=== PATIENT | female | born 1950 | race Caucasian/White ===

== ENCOUNTER 2016-02-28 01:14 | Emergency (ER) | payer MEDICARE ==
--- NOTE | 2016-02-28 01:18 | ED ---
General Adult HPI - General Stated complaint: chest pain Time Seen by Provider: 02/28/16 01:18 Source: RN notes reviewed, old records reviewed - History of Present Illness Initial comments: This is a 65-year-old female earlier for evaluation of cough and congestion and flulike symptoms upper respiratory symptoms. Patient also complaining of left leg jumping and tingling. Patient denies any significant chest pain or shortness of breath, no specific modifying factors for symptoms. No change in medications as of recent, no recent antibiotic use, no recent evaluation regarding chest pain shots of breath or abdominal pain. Patient has no recent hospitalizations. No significant fevers or travel history, no known sick contacts - Related Data Home Medications Medication Instructions Recorded Confirmed Sertraline [Zoloft] 50 mg PO HS 12/02/14 12/12/15 amLODIPine [Norvasc] 5 mg PO DAILY 09/22/15 12/12/15 Omeprazole [PriLOSEC] 20 mg PO AC-BID 11/19/15 12/12/15 Oxybutynin Chloride [Ditropan] 5 mg PO BID 11/19/15 12/12/15 Cyclobenzaprine [Flexeril] 5 mg PO BID 12/12/15 12/12/15 Furosemide [Lasix] 40 mg PO DAILY 12/12/15 12/12/15 QUEtiapine FUMARATE 25 mg PO TID 12/12/15 12/12/15 Spironolactone [Aldactone] 25 mg PO DAILY 12/12/15 12/12/15 traZODone HCL [Desyrel] 100 mg PO HS 12/12/15 12/12/15 Previous Rx's Medication Instructions Recorded Clopidogrel [Plavix] 75 mg PO DAILY #14 tab 12/02/14 Melatonin 10 mg PO HS tablet 11/22/15 hydrOXYzine HCL [Atarax] 25 mg PO TID PRN #20 tab 11/28/15 Ondansetron Odt [Zofran ODT] 4 mg PO Q8HR PRN #15 tab 12/12/15 Allergies Allergy/AdvReac Type Severity Reaction Status Date / Time erythromycin base Allergy Rash/Hives Verified 12/12/15 15:48 [Erythromycin Base] etodolac [From Lodine] Allergy Rash/Hives Verified 12/12/15 15:48 Penicillins Allergy Rash/Hives Verified 12/12/15 15:48 pentazocine lactate Allergy Rash/Hives Verified 12/12/15 15:48 [From Talwin] secobarbital sodium Allergy Rash/Hives Verified 12/12/15 15:48 [From Seconal] Sulfa (Sulfonamide Allergy Rash/Hives Verified 12/12/15 15:48 Antibiotics) delmain Allergy Rash/Hives Uncoded 12/12/15 15:08 oatmeal Allergy Rash/Hives Uncoded 12/12/15 15:08 Review of Systems ROS Statement: Those systems with pertinent positive or pertinent negative responses have been documented in the HPI. ROS Other: All systems not noted in ROS Statement are negative. Past Medical History Past Medical History: Coronary Artery Disease (CAD), Dementia, GERD/Reflux, Hypertension, Musculoskeletal Disorder Additional Past Medical History / Comment(s): Patient currently living at [facility] alone. Other HX: Darier Disease, MS, RLS, bilateral legs cramp when walking long distances, UTI, DJD lumbar spine, pt denies dementia-it is in old hx however. History of Any Multi-Drug Resistant Organisms: MRSA Date of last positivie culture/infection: 09/05/2012 MDRO Source:: Urine Past Surgical History: Cholecystectomy, Heart Catheterization With Stent, Hernia Repair, Hysterectomy, Orthopedic Surgery Additional Past Surgical History / Comment(s): surgeries on left leg due to accident; Four lipomas removed from lower back; bunionectomy on left foot in August 2013, states, bowel prolapsed and they put back in place, picc line for ABX tx for MRSA 2012-since removed. Past Anesthesia/Blood Transfusion Reactions: No Reported Reaction Additional Past Anesthesia/Blood Transfusion Reaction / Comment(s): . Date of Last Stent Placement:: 2011 Past Psychological History: Depression Additional Psychological History / Comment(s): She is independent. reports having a Legal Gaurdian. She uses no assistive device. She does not drive. patient denies depression but found in old history Smoking Status: Current every day smoker Past Alcohol Use History: None Reported Additional Past Alcohol Use History / Comment(s): . Past Drug Use History: None Reported - Past Family History Father Family Medical History: No Reported History Additional Family Medical History / Comment(s): father at age 92 yrs. Mother Family Medical History: COPD Additional Family Medical History / Comment(s): Mother at age 62yrs. General Exam General appearance: alert, in no apparent distress Head exam: Present: atraumatic, normocephalic, normal inspection Eye exam: Present: normal appearance, PERRL, EOMI. Absent: scleral icterus, conjunctival injection, periorbital swelling ENT exam: Present: normal exam, mucous membranes moist Neck exam: Present: normal inspection. Absent: tenderness, meningismus, lymphadenopathy Respiratory exam: Present: normal lung sounds bilaterally. Absent: respiratory distress, wheezes, rales, rhonchi, stridor Cardiovascular Exam: Present: regular rate, normal rhythm, normal heart sounds. Absent: systolic murmur, diastolic murmur, rubs, gallop, clicks GI/Abdominal exam: Present: soft, normal bowel sounds. Absent: distended, tenderness, guarding, rebound, rigid Extremities exam: Present: normal inspection, full ROM, normal capillary refill. Absent: tenderness, pedal edema, joint swelling, calf tenderness Back exam: Present: normal inspection Neurological exam: Present: alert, oriented X3, CN II-XII intact Psychiatric exam: Present: normal affect, normal mood Skin exam: Present: warm, dry, intact, normal color. Absent: rash Course Vital Signs 02/28/16 02/28/16 01:16 01:20 Pulse Rate 79 Respiratory 18 18 Rate Blood Pressure 141/69 O2 Sat by Pulse 99 Oximetry - Reevaluation(s) Reevaluation #1: 02/28/16 03:12 The patient feeling better with Benadryl, asking for IM Benadryl EKG Findings - EKG Comments: EKG Findings:: EKG shows normal sinus rhythm and 35, HI 142, QRS 80, QTC 422 Medical Decision Making - Medical Decision Making 65 female to ER for nonspecific of respiratory symptoms. Patient's symptoms are at this time improved. Patient can be discharged home - Radiology Data Radiology results: report reviewed (Chest x-ray two-view is negative for acute disease), image reviewed Disposition Clinical Impression: Upper respiratory infection Disposition: HOME SELF-CARE Condition: Good Instructions: Upper Respiratory Infection (ED) Referrals: Micky Nunn MD [Primary Care Provider] - 1-2 days
[2016-02-28 01:20] VITALS: RESP 18
[2016-02-28] MEDS ORDERED: DIAZEPAM 5 MG TAB PO STA (02:04)
[2016-02-28] MEDS ORDERED: diphenhydrAMINE 50 MG/ML 1 ML VIAL IM STA (02:34)
[2016-02-28 03:25] VITALS: PULSE 80
[2016-02-28 03:26] VITALS: BP 137/82; TEMP 97.1
--- NOTE | 2016-02-28 03:55 | XR ---
EXAMINATION TYPE: XR chest 2V DATE OF EXAM: 02/28/2016 2:25 AM COMPARISON: 12/12/2015 HISTORY: Chest pain TECHNIQUE: Frontal and lateral views of the chest are obtained. FINDINGS: Mild chronic interstitial lung changes are suggested bilaterally. Atherosclerotic calcification is no alfa in the aortic arch. There is no focal air space opacity, pleural effusion, or pneumothorax seen. The cardiac silhouette size is within normal limits. The osseous structures are intact. IMPRESSION: No acute cardiopulmonary process. No significant interval change.
== END 2016-02-28 03:26 | disposition home or self-care (01) ==
LOC: EC 01:14
DX: J06.9 Acute upper respiratory infection, unspecified (principal); Z88.0 Allergy status to penicillin; Z88.2 Allergy status to sulfonamides; Z88.1 Allergy status to other antibiotic agents; Z88.5 Allergy status to narcotic agent; Z88.8 Allergy status to other drugs, medicaments and biological substances; Z91.018 Allergy to other foods; Z79.899 Other long term (current) drug therapy; Z79.02 Long term (current) use of antithrombotics/antiplatelets; K21.9 Gastro-esophageal reflux disease without esophagitis; I10 Essential (primary) hypertension; I25.10 Atherosclerotic heart disease of native coronary artery without angina pectoris; G35 Multiple sclerosis; G25.81 Restless legs syndrome; F32.9 Major depressive disorder, single episode, unspecified; Z95.5 Presence of coronary angioplasty implant and graft; F17.200 Nicotine dependence, unspecified, uncomplicated
CPT/HCPCS: 96372; 99285; 93005; 71020; J1200

== ENCOUNTER 2016-03-11 18:35 | Emergency (ER) | payer MEDICARE ==
[2016-03-11 18:43] VITALS: BP 125/76; PULSE 83; RESP 18; TEMP 97.7
--- NOTE | 2016-03-11 19:15 | ED ---
Skin/Abscess/FB HPI - General Chief complaint: Skin/Abscess/Foreign Body Stated complaint: BLOODCLOT LEFT BREAST Time Seen by Provider: 03/11/16 19:10 Source: patient, RN notes reviewed Mode of arrival: ambulatory Limitations: no limitations - History of Present Illness Initial comments: 58-year-old female presents emergency Department chief complaint redness to her left breast. Patient states it started this morning. Patient is mild swelling. Patient states she has a history of breast abscess. Patient states that she's had a mammogram in the past. Patient states that she had the abscess approximately 10 years ago [surgeon. Patient denies fever, chills, chest pain or shortness of breath. Patient states that she has ALLERGIES to penicillin and Bactrim. Patient states that she has constant rash on her body secondary to derrire's disease - Related Data Home Medications Medication Instructions Recorded Confirmed Sertraline [Zoloft] 50 mg PO HS 12/02/14 12/12/15 amLODIPine [Norvasc] 5 mg PO DAILY 09/22/15 12/12/15 Omeprazole [PriLOSEC] 20 mg PO AC-BID 11/19/15 12/12/15 Oxybutynin Chloride [Ditropan] 5 mg PO BID 11/19/15 12/12/15 Cyclobenzaprine [Flexeril] 5 mg PO BID 12/12/15 12/12/15 Furosemide [Lasix] 40 mg PO DAILY 12/12/15 12/12/15 QUEtiapine FUMARATE 25 mg PO TID 12/12/15 12/12/15 Spironolactone [Aldactone] 25 mg PO DAILY 12/12/15 12/12/15 traZODone HCL [Desyrel] 100 mg PO HS 12/12/15 12/12/15 Previous Rx's Medication Instructions Recorded Clopidogrel [Plavix] 75 mg PO DAILY #14 tab 12/02/14 Melatonin 10 mg PO HS tablet 11/22/15 hydrOXYzine HCL [Atarax] 25 mg PO TID PRN #20 tab 11/28/15 Ondansetron Odt [Zofran ODT] 4 mg PO Q8HR PRN #15 tab 12/12/15 Cephalexin [Keflex] 500 mg PO Q6HR #40 cap 03/11/16 Allergies Allergy/AdvReac Type Severity Reaction Status Date / Time erythromycin base Allergy Rash/Hives Verified 03/11/16 18:43 [Erythromycin Base] etodolac [From Lodine] Allergy Rash/Hives Verified 03/11/16 18:43 flurazepam [From Dalmane] Allergy Rash/Hives Verified 03/11/16 19:13 Penicillins Allergy Rash/Hives Verified 03/11/16 18:43 pentazocine lactate Allergy Rash/Hives Verified 03/11/16 18:43 [From Talwin] secobarbital sodium Allergy Rash/Hives Verified 03/11/16 18:43 [From Seconal] Sulfa (Sulfonamide Allergy Rash/Hives Verified 03/11/16 18:43 Antibiotics) oatmeal Allergy Rash/Hives Uncoded 03/11/16 18:43 Review of Systems ROS Statement: Those systems with pertinent positive or pertinent negative responses have been documented in the HPI. ROS Other: All systems not noted in ROS Statement are negative. Past Medical History Past Medical History: Coronary Artery Disease (CAD), Dementia, GERD/Reflux, Hypertension, Musculoskeletal Disorder Additional Past Medical History / Comment(s): Darier Disease, MS, RLS, bilateral legs cramp when walking long distances, UTI, DJD lumbar spine, pt denies dementia-it is in old hx however. History of Any Multi-Drug Resistant Organisms: MRSA Date of last positivie culture/infection: 09/05/2012 MDRO Source:: Urine Past Surgical History: Cholecystectomy, Heart Catheterization With Stent, Hernia Repair, Hysterectomy, Orthopedic Surgery Additional Past Surgical History / Comment(s): surgeries on left leg due to accident; Four lipomas removed from lower back; bunionectomy on left foot in August 2013, states, bowel prolapsed and they put back in place, picc line for ABX tx for MRSA 2012-since removed. Past Anesthesia/Blood Transfusion Reactions: No Reported Reaction Additional Past Anesthesia/Blood Transfusion Reaction / Comment(s): . Date of Last Stent Placement:: 2011 Past Psychological History: Depression Additional Psychological History / Comment(s): She is independent. reports having a Legal Gaurdian. She uses no assistive device. She does not drive. patient denies depression but found in old history Smoking Status: Current every day smoker Past Alcohol Use History: None Reported Additional Past Alcohol Use History / Comment(s): . Past Drug Use History: None Reported - Past Family History Father Family Medical History: No Reported History Additional Family Medical History / Comment(s): father at age 92 yrs. Mother Family Medical History: COPD Additional Family Medical History / Comment(s): Mother at age 62yrs. General Exam Limitations: no limitations General appearance: alert, in no apparent distress Head exam: Present: atraumatic, normocephalic, normal inspection Respiratory exam: Present: normal lung sounds bilaterally. Absent: respiratory distress, wheezes, rales, rhonchi, stridor Cardiovascular Exam: Present: regular rate, normal rhythm, normal heart sounds. Absent: systolic murmur, diastolic murmur, rubs, gallop, clicks Skin exam: Present: warm, dry, intact, normal color, other (Left breast there is a 1 cm area of erythema and half centimeter of nonfluctuant firm abscess). Absent: rash Course Vital Signs 03/11/16 18:40 Temperature 97.7 F Pulse Rate 83 Respiratory 18 Rate Blood Pressure 125/76 O2 Sat by Pulse 97 Oximetry Medical Decision Making - Medical Decision Making 65-year-old female presented emergency department for left breast abscess. Patient symptoms started today. There is nothing to open at this time. Patient referred to Dr. Jensen Hunter surgeon for further evaluation she was started on Keflex that she has an ALLERGY to Bactrim. Return parameters were discussed. Disposition Clinical Impression: Abscess of left breast Disposition: HOME SELF-CARE Condition: Stable Instructions: Abscess (ED) Additional Instructions: Please return to the Emergency Department if symptoms worsen or any other concerns. Please follow-up with the surgeon tomorrow. Prescriptions: Cephalexin [Keflex] 500 mg PO Q6HR #40 cap Referrals: Micky Nunn MD [Primary Care Provider] - 1-2 days Kathy Ruth MD [STAFF PHYSICIAN] - 1-2 days Time of Disposition: 19:15
== END 2016-03-11 19:36 | disposition home or self-care (01) ==
LOC: EC 18:35
DX: N61.1 Abscess of the breast and nipple (principal); I25.10 Atherosclerotic heart disease of native coronary artery without angina pectoris; I10 Essential (primary) hypertension; K21.9 Gastro-esophageal reflux disease without esophagitis; Z88.0 Allergy status to penicillin; Z88.2 Allergy status to sulfonamides; Z91.018 Allergy to other foods; Z88.8 Allergy status to other drugs, medicaments and biological substances; Z79.899 Other long term (current) drug therapy; Z79.02 Long term (current) use of antithrombotics/antiplatelets; Z95.5 Presence of coronary angioplasty implant and graft
CPT/HCPCS: 99282

== ENCOUNTER 2016-03-19 19:01 | Emergency (ER) | payer MEDICARE ==
[2016-03-19 19:05] VITALS: RESP 16; TEMP 98
[2016-03-19] MEDS ORDERED: SODIUM CHLORIDE 0.9% 1,000 ML IV STA (19:23)
[2016-03-19] MEDS ORDERED: SODIUM CHLORIDE 0.9% 500 ML IV STA (19:23)
[2016-03-19 19:47] LABS: Basophils # (A) 0.1 k/uL (0-0.2); Basophils % (A) 1 %; CH 31.4; CHCM 32.6; Eosinophils # (A) 0.2 k/uL (0-0.7); Eosinophils % (A) 2 %; HCT 42.6 % (34.0-46.0); HDW 2.29; HGB 13.7 gm/dL (11.4-16.0); Luc # (Auto) 0.13; Luc % (Auto) 1; Lymphocytes # (A) 1.6 k/uL (1.0-4.8); Lymphocytes % (A) 17 %; MCH 31.1 pg (25.0-35.0); MCHC 32.2 g/dL (31.0-37.0); MCV 96.6 fL (80.0-100.0); Mean Platelet Volume 6.4; Monocytes # (A) 0.6 k/uL (0-1.0); Monocytes % (A) 6 %; Neutrophils # (A) 6.8 k/uL (1.3-7.7); Neutrophils % (A) 73 %; RBC 4.41 m/uL (3.80-5.40); RDW 13.2 % (11.5-15.5); WBC 9.3 k/uL (3.8-10.6); WBC (Perox) 9.14
[2016-03-19 19:57] LABS: Potassium 4.2 mmol/L (3.5-5.1); Total Bilirubin 0.4 mg/dL (0.2-1.3)
[2016-03-19 20:00] LABS: INR 1.1 (<1.1); Partial Thromboplastin Time 23.6 sec (22.0-30.0); Prothrombin Time 10.7 sec (9.0-12.0)
[2016-03-19 20:02] LABS: Creatine Kinase 275 U/L (30-135)
--- NOTE | 2016-03-19 20:05 | CT ---
EXAMINATION TYPE: CT brain wo con DATE OF EXAM: 03/19/2016 7:59 PM COMPARISON: NONE HISTORY: syncopal episode today with injury CT DLP: 1017.9 mGycm Automated exposure control for dose reduction was used. FINDINGS: Multiple axial sections were obtained of the brain with no contrast. Ventricles have normal size. There is no mass effect nor midline shift. There is no sign of intracran ial hemorrhage. The calvarium is intact. There is a 2 cm area of subtle hypodensity in the espinosa-white matter junction of the left posterior frontal lobe. IMPRESSION: There is evidence of some white matter ischemia in the left posterior frontal lobe. No mass effect. M ild cerebral atrophy. No hemorrhage.
--- NOTE | 2016-03-19 20:08 | XR ---
EXAMINATION TYPE: XR chest 2V DATE OF EXAM: 03/19/2016 8:03 PM COMPARISON: 02/28/2016 HISTORY: Syncope TECHNIQUE: Frontal and lateral views of the chest are obtained. FINDINGS: Heart is normal. Lungs are clear. Costophrenic angles are clear. The thoracic aorta is ath eromatous. There are no hilar masses. Bony thorax is intact. There are chest leads. IMPRESSION: No active cardiopulmonary disease. No change.
[2016-03-19 20:16] LABS: Troponin I <0.012 ng/mL (0.000-0.034)
[2016-03-19 20:22] LABS: Creatine Kinase MB 2.7 ng/mL (0.0-2.4)
[2016-03-19 20:41] VITALS: BP 131/84; PULSE 65
[2016-03-19] MEDS ORDERED: ACETAMINOPHEN TAB 500 MG TAB PO STA (20:42)
--- NOTE | 2016-03-19 21:13 | ED ---
Syncope HPI - General Chief Complaint: Syncope Stated Complaint: fall Time Seen by Provider: 03/19/16 19:03 Source: patient, EMS Mode of arrival: EMS Limitations: no limitations - History of Present Illness Initial Comments: This 65-year-old white female presents after having a syncopal episode. She apparently was walking across [facility]. when she passed out in the middle of the street. She states that she fell and hit her left frontal head region. She apparently was found by a bystander. They brought her in to [facility] and called an ambulance and they brought her here. She states that she was somewhat dizzy prior to the incident. She feels much improved now. She denies any headaches. She does complain of some chronic shortness of breath and some chronic low back pain. She denies any leg pain or swelling or history of DVT or PE. She does relate that she has a history of cardiac disease with previous cardiac stenting as well. She also relates that she's had an approximately 38 pound weight loss in the last 1-1/2 months and this is not intentional. No other complaints or modifying factors. - Related Data Home Medications Medication Instructions Recorded Confirmed Sertraline [Zoloft] 50 mg PO HS 12/02/14 03/19/16 amLODIPine [Norvasc] 5 mg PO DAILY 09/22/15 03/19/16 Omeprazole [PriLOSEC] 20 mg PO AC-BID 11/19/15 03/19/16 Oxybutynin Chloride [Ditropan] 5 mg PO BID 11/19/15 03/19/16 Cyclobenzaprine [Flexeril] 5 mg PO BID 12/12/15 03/19/16 Furosemide [Lasix] 40 mg PO DAILY 12/12/15 03/19/16 QUEtiapine FUMARATE 25 mg PO TID 12/12/15 03/19/16 Spironolactone [Aldactone] 25 mg PO DAILY 12/12/15 03/19/16 traZODone HCL [Desyrel] 100 mg PO HS 12/12/15 03/19/16 Previous Rx's Medication Instructions Recorded Clopidogrel [Plavix] 75 mg PO DAILY #14 tab 12/02/14 Melatonin 10 mg PO HS tablet 11/22/15 hydrOXYzine HCL [Atarax] 25 mg PO TID PRN #20 tab 11/28/15 Ondansetron Odt [Zofran ODT] 4 mg PO Q8HR PRN #15 tab 12/12/15 Allergies Allergy/AdvReac Type Severity Reaction Status Date / Time erythromycin base Allergy Rash/Hives Verified 03/19/16 19:30 [Erythromycin Base] etodolac [From Lodine] Allergy Rash/Hives Verified 03/19/16 19:30 flurazepam [From Dalmane] Allergy Rash/Hives Verified 03/19/16 19:30 Penicillins Allergy Rash/Hives Verified 03/19/16 19:30 pentazocine lactate Allergy Rash/Hives Verified 03/19/16 19:30 [From Talwin] secobarbital sodium Allergy Rash/Hives Verified 03/19/16 19:30 [From Seconal] Sulfa (Sulfonamide Allergy Rash/Hives Verified 03/19/16 19:30 Antibiotics) oatmeal Allergy Rash/Hives Uncoded 03/19/16 19:05 Review of Systems ROS Statement: Those systems with pertinent positive or pertinent negative responses have been documented in the HPI. ROS Other: All systems not noted in ROS Statement are negative. Past Medical History Past Medical History: Coronary Artery Disease (CAD), Dementia, GERD/Reflux, Hypertension, Musculoskeletal Disorder Additional Past Medical History / Comment(s): Darier Disease, MS, RLS, bilateral legs cramp when walking long distances, UTI, DJD lumbar spine, pt denies dementia-it is in old hx however. History of Any Multi-Drug Resistant Organisms: MRSA Date of last positivie culture/infection: 09/05/2012 MDRO Source:: Urine Past Surgical History: Cholecystectomy, Heart Catheterization With Stent, Hernia Repair, Hysterectomy, Orthopedic Surgery Additional Past Surgical History / Comment(s): surgeries on left leg due to accident; Four lipomas removed from lower back; bunionectomy on left foot in August 2013, states, bowel prolapsed and they put back in place, picc line for ABX tx for MRSA 2012-since removed. Past Anesthesia/Blood Transfusion Reactions: No Reported Reaction Additional Past Anesthesia/Blood Transfusion Reaction / Comment(s): . Date of Last Stent Placement:: 2011 Past Psychological History: Depression Additional Psychological History / Comment(s): She is independent. reports having a Legal Gaurdian. She uses no assistive device. She does not drive. patient denies depression but found in old history Smoking Status: Current every day smoker Past Alcohol Use History: None Reported Additional Past Alcohol Use History / Comment(s): . Past Drug Use History: None Reported - Past Family History Father Family Medical History: No Reported History Additional Family Medical History / Comment(s): father at age 92 yrs. Mother Family Medical History: COPD Additional Family Medical History / Comment(s): Mother at age 62yrs. General Exam - General Exam Comments Initial Comments: GENERAL: The patient is well nourished and well hydrated. VITAL SIGNS: Heart rate, blood pressure, respiratory rate reviewed as recorded in nurse's notes. EYES: Pupils are round and reactive. Extraocular movements are intact. No conjunctival / lid redness or swelling. ENT: No external evidence of injury, swelling, or ecchymosis. Airway is patent. Throat is clear. NECK: Nontender. No swelling or evidence of injury. No subcutaneous emphysema. Trachea is midline. No thyroid mass. HEART: Regular rate and rhythm. Good peripheral pulses. LUNGS/CHEST: Breath sounds clear and equal bilaterally. No rales, rhonchi, or wheezes. No ecchymosis, subcutaneous emphysema, or tenderness. ABDOMEN: Abdomen soft without tenderness. No palpable masses or organomegaly. No peritoneal signs. No abdominal wall swelling or ecchymosis. EXTREMITIES: No extremity tenderness. Normal muscle tone and function. No thoracolumbar tenderness. NEUROLOGIC: Sensation is grossly intact. Cranial nerve exam reveals face is symmetrical, tongue is midline, speech is clear. SKIN: No abrasions or ecchymosis is noted. No induration or masses noted. PSYCHIATRIC: Alert and oriented. Appropriate behavior and judgment. Limitations: no limitations Course Vital Signs 03/19/16 03/19/16 03/19/16 19:02 19:25 20:34 Temperature 98.0 F Pulse Rate 75 68 65 Respiratory 16 16 Rate Blood Pressure 128/75 141/78 131/84 O2 Sat by Pulse 98 96 96 Oximetry Medical Decision Making - Medical Decision Making The patient was seen and examined. All diagnostics were reviewed. The patient had an EKG which shows a normal sinus rhythm. There is no acute ST-T wave changes identified. The MT interval is 116, QRS duration is 80, and the QTc interval is 470. The patient also had a laboratory analysis which shows slight elevation of the CK-MB and CPK. The creatinine is 1.14. The computed tomography scan of the brain shows some white matter ischemic changes in the left frontal lobe. The chest x-ray does not show any acute process. The exact cause of her syncopal episode is not definitively determined. It is felt as though she would benefit from further admission and workup in this regard. She is agreeable to this plan. Of note, her guardian called then and relates that they do not want her to receive any narcotics as she is on probation. She is repetitively requesting narcotics and states that she normally gets Demerol. She was given some Tylenol for her low back pain as well as some Toradol. Case is discussed with internal medicine and they are agreeable to admission. - Lab Data Result diagrams: 03/19/16 19:33 03/19/16 19:33 Lab Results 03/19/16 03/19/16 03/19/16 Range/Units 19:33 19:33 19:33 WBC 9.3 (3.8-10.6) k/uL RBC 4.41 (3.80-5.40) m/uL Hgb 13.7 (11.4-16.0) gm/dL Hct 42.6 (34.0-46.0) % MCV 96.6 (80.0-100.0) fL MCH 31.1 (25.0-35.0) pg MCHC 32.2 (31.0-37.0) g/dL RDW 13.2 (11.5-15.5) % Plt Count 458 H (150-450) k/uL Neutrophils % 73 % Lymphocytes % 17 % Monocytes % 6 % Eosinophils % 2 % Basophils % 1 % Neutrophils # 6.8 (1.3-7.7) k/uL Lymphocytes # 1.6 (1.0-4.8) k/uL Monocytes # 0.6 (0-1.0) k/uL Eosinophils # 0.2 (0-0.7) k/uL Basophils # 0.1 (0-0.2) k/uL PT (9.0-12.0) sec INR (<1.1) APTT (22.0-30.0) sec Sodium 142 (137-145) mmol/L Potassium 4.2 (3.5-5.1) mmol/L Chloride 109 H (98-107) mmol/L Carbon Dioxide 23 (22-30) mmol/L Anion Gap 10 mmol/L BUN 17 (7-17) mg/dL Creatinine 1.14 H (0.52-1.04) mg/dL Est GFR (MDRD) Af Amer 58 (>60 ml/min/1.73 sqM) Est GFR (MDRD) Non-Af 48 (>60 ml/min/1.73 sqM) Glucose 92 (74-99) mg/dL Calcium 9.0 (8.4-10.2) mg/dL Total Bilirubin 0.4 (0.2-1.3) mg/dL AST 37 H (14-36) U/L ALT 46 (9-52) U/L Alkaline Phosphatase 113 (38-126) U/L Total Creatine Kinase 275 H (30-135) U/L CK-MB (CK-2) 2.7 H* (0.0-2.4) ng/mL CK-MB (CK-2) Rel Index 1.0 Troponin I <0.012 (0.000-0.034) ng/mL Total Protein 7.0 (6.3-8.2) g/dL Albumin 3.7 (3.5-5.0) g/dL 03/19/16 Range/Units 19:33 WBC (3.8-10.6) k/uL RBC (3.80-5.40) m/uL Hgb (11.4-16.0) gm/dL Hct (34.0-46.0) % MCV (80.0-100.0) fL MCH (25.0-35.0) pg MCHC (31.0-37.0) g/dL RDW (11.5-15.5) % Plt Count (150-450) k/uL Neutrophils % % Lymphocytes % % Monocytes % % Eosinophils % % Basophils % % Neutrophils # (1.3-7.7) k/uL Lymphocytes # (1.0-4.8) k/uL Monocytes # (0-1.0) k/uL Eosinophils # (0-0.7) k/uL Basophils # (0-0.2) k/uL PT 10.7 (9.0-12.0) sec INR 1.1 (<1.1) APTT 23.6 (22.0-30.0) sec Sodium (137-145) mmol/L Potassium (3.5-5.1) mmol/L Chloride (98-107) mmol/L Carbon Dioxide (22-30) mmol/L Anion Gap mmol/L BUN (7-17) mg/dL Creatinine (0.52-1.04) mg/dL Est GFR (MDRD) Af Amer (>60 ml/min/1.73 sqM) Est GFR (MDRD) Non-Af (>60 ml/min/1.73 sqM) Glucose (74-99) mg/dL Calcium (8.4-10.2) mg/dL Total Bilirubin (0.2-1.3) mg/dL AST (14-36) U/L ALT (9-52) U/L Alkaline Phosphatase (38-126) U/L Total Creatine Kinase (30-135) U/L CK-MB (CK-2) (0.0-2.4) ng/mL CK-MB (CK-2) Rel Index Troponin I (0.000-0.034) ng/mL Total Protein (6.3-8.2) g/dL Albumin (3.5-5.0) g/dL Disposition Clinical Impression: Syncope and collapse, Head injury, Dyspnea, Tobacco abuse, Elevated CK-MB level , Elevated CPK, Chronic low back pain, Weight loss Disposition: ADMITTED IP TO THIS [facility] Condition: Fair Time of Disposition: 21:19 Decision Date: 03/19/16 Decision Time: 21:19
[2016-03-19] MEDS ORDERED: KETOROLAC 30 MG/ML 1 ML VIAL IVP PRN (21:23)
[2016-03-19] MEDS ORDERED: ONDANSETRON 4 MG/2 ML VIAL IVP PRN (21:23)
[2016-03-19] MEDS ORDERED: NALOXONE 0.4 MG/ML 1 ML VIAL IV PRN (21:23)
[2016-03-19] MEDS ORDERED: ACETAMINOPHEN TAB 325 MG TAB PO PRN (21:23)
[2016-03-19] MEDS ORDERED: hydrOXYzine HCL 25 MG TAB PO PRN (21:28)
[2016-03-19] MEDS ORDERED: NICOTINE 14MG/24HR PATCH TRANSDERM STA (21:32)
[2016-03-19] MEDS ORDERED: QUEtiapine 25 MG TAB PO SCH (22:00)
[2016-03-20] MEDS ORDERED: ENOXAPARIN 40 MG/0.4 ML SYRINGE SQ SCH (09:00)
[2016-03-20] MEDS ORDERED: FUROSEMIDE 40 MG TAB PO SCH (09:00)
[2016-03-20] MEDS ORDERED: amLODIPine 5 MG TAB PO SCH (09:00)
[2016-03-20] MEDS ORDERED: SPIRONOLACTONE 25 MG TAB PO SCH (09:00)
[2016-03-20] MEDS ORDERED: PANTOPRAZOLE 40 MG/10 ML VIAL IV SCH (09:00)
[2016-03-20] MEDS ORDERED: OXYBUTYNIN CHLORIDE 5 MG TAB PO SCH (09:00)
[2016-03-20] MEDS ORDERED: CLOPIDOGREL 75 MG TAB PO SCH (09:00)
[2016-03-20] MEDS ORDERED: CYCLOBENZAPRINE 5 MG TAB PO SCH (09:00)
[2016-03-20] MEDS ORDERED: MELATONIN 5 MG TABLET PO SCH (21:00)
[2016-03-20] MEDS ORDERED: traZODone HCL 100 MG TAB PO SCH (21:00)
[2016-03-20] MEDS ORDERED: SERTRALINE 50 MG TAB PO SCH (21:00)
== END 2016-03-19 21:57 | disposition left against medical advice (07) ==
LOC: EC 19:01
DX: R55 Syncope and collapse (principal); S09.90XA Unspecified injury of head, initial encounter; R06.00 Dyspnea, unspecified; R74.8 Abnormal levels of other serum enzymes; G89.29 Other chronic pain; M54.5 Low back pain; R63.4 Abnormal weight loss; F17.210 Nicotine dependence, cigarettes, uncomplicated; F32.9 Major depressive disorder, single episode, unspecified; I10 Essential (primary) hypertension; K21.9 Gastro-esophageal reflux disease without esophagitis; M19.90 Unspecified osteoarthritis, unspecified site; F03.90 Unspecified dementia, unspecified severity, without behavioral disturbance, psychotic disturbance, mood disturbance, and anxiety; I25.10 Atherosclerotic heart disease of native coronary artery without angina pectoris; W19.XXXA Unspecified fall, initial encounter; Y93.01 Activity, walking, marching and hiking; Y92.414 Local residential or business street as the place of occurrence of the external cause; Z95.5 Presence of coronary angioplasty implant and graft; Z79.899 Other long term (current) drug therapy; Z88.1 Allergy status to other antibiotic agents; Z88.0 Allergy status to penicillin; Z88.2 Allergy status to sulfonamides; Z88.8 Allergy status to other drugs, medicaments and biological substances; Z91.018 Allergy to other foods; R06.02 Shortness of breath
CPT/HCPCS: 36415; 70450; 71020; 80053; 82550; 82553; 84484; 85025; 85610; 85730; 93005; 96360; 96361; 99285

== ENCOUNTER 2016-04-18 09:43 | Inpatient (IN) | payer MEDICARE ==
--- NOTE | 2016-04-18 10:02 | ED ---
General Adult HPI - General Chief complaint: Psychiatric Symptoms Stated complaint: Overdose, Suicidal Time Seen by Provider: 04/18/16 09:50 Source: patient, EMS, RN notes reviewed, old records reviewed Mode of arrival: EMS - History of Present Illness Initial comments: This is a 65 female to the ED, this patient presents to ED for evaluation of psychiatric disease, patient refusing therapy for inpatient psych, did take overdose one of all medications, patient was argumentative and not appropriate during counseling - Related Data Home Medications Medication Instructions Recorded Confirmed Sertraline [Zoloft] 50 mg PO HS 12/02/14 04/18/16 amLODIPine [Norvasc] 5 mg PO DAILY 09/22/15 04/18/16 Spironolactone [Aldactone] 25 mg PO DAILY 12/12/15 04/18/16 traZODone HCL [Desyrel] 100 mg PO HS 12/12/15 04/18/16 Aspirin EC [Ecotrin Low Dose] 81 mg PO DAILY 04/18/16 04/18/16 Furosemide [Lasix] 40 mg PO DAILY 04/18/16 04/18/16 Meloxicam [Mobic] 7.5 mg PO HS 04/18/16 04/18/16 Ramelteon [Rozerem] 8 mg PO HS 04/18/16 04/18/16 hydrOXYzine HCL [Atarax] 25 mg PO Q6H PRN 04/18/16 04/18/16 Previous Rx's Medication Instructions Recorded Clopidogrel [Plavix] 75 mg PO DAILY #14 tab 12/02/14 Allergies Allergy/AdvReac Type Severity Reaction Status Date / Time erythromycin base Allergy Rash/Hives Verified 04/18/16 10:00 [Erythromycin Base] etodolac [From Lodine] Allergy Rash/Hives Verified 04/18/16 10:00 flurazepam [From Dalmane] Allergy Rash/Hives Verified 04/18/16 10:00 Penicillins Allergy Rash/Hives Verified 04/18/16 10:00 pentazocine lactate Allergy Rash/Hives Verified 04/18/16 10:00 [From Talwin] secobarbital sodium Allergy Rash/Hives Verified 04/18/16 10:00 [From Seconal] Sulfa (Sulfonamide Allergy Rash/Hives Verified 04/18/16 10:00 Antibiotics) oatmeal Allergy Rash/Hives Uncoded 04/18/16 10:00 Review of Systems ROS Statement: Those systems with pertinent positive or pertinent negative responses have been documented in the HPI. ROS Other: All systems not noted in ROS Statement are negative. Past Medical History Past Medical History: Coronary Artery Disease (CAD), Dementia, GERD/Reflux, Hypertension, Musculoskeletal Disorder Additional Past Medical History / Comment(s): Darier Disease, MS, RLS, bilateral legs cramp when walking long distances, UTI, DJD lumbar spine, pt denies dementia-it is in old hx however. History of Any Multi-Drug Resistant Organisms: MRSA Date of last positivie culture/infection: 09/05/2012 MDRO Source:: Urine Past Surgical History: Cholecystectomy, Heart Catheterization With Stent, Hernia Repair, Hysterectomy, Orthopedic Surgery Additional Past Surgical History / Comment(s): surgeries on left leg due to accident; Four lipomas removed from lower back; bunionectomy on left foot in August 2013, states, bowel prolapsed and they put back in place, picc line for ABX tx for MRSA 2012-since removed. Past Anesthesia/Blood Transfusion Reactions: No Reported Reaction Additional Past Anesthesia/Blood Transfusion Reaction / Comment(s): . Date of Last Stent Placement:: 2011 Past Psychological History: Depression Additional Psychological History / Comment(s): She is independent. reports having a Legal Gaurdian. She uses no assistive device. She does not drive. patient denies depression but found in old history Smoking Status: Current every day smoker Past Alcohol Use History: None Reported Additional Past Alcohol Use History / Comment(s): . Past Drug Use History: None Reported - Past Family History Father Family Medical History: No Reported History Additional Family Medical History / Comment(s): father at age 92 yrs. Mother Family Medical History: COPD Additional Family Medical History / Comment(s): Mother at age 62yrs. General Exam General appearance: alert, in no apparent distress Head exam: Present: atraumatic, normocephalic, normal inspection Eye exam: Present: normal appearance, PERRL, EOMI. Absent: scleral icterus, conjunctival injection, periorbital swelling ENT exam: Present: normal exam, mucous membranes moist Neck exam: Present: normal inspection. Absent: tenderness, meningismus, lymphadenopathy Respiratory exam: Present: normal lung sounds bilaterally. Absent: respiratory distress, wheezes, rales, rhonchi, stridor Cardiovascular Exam: Present: regular rate, normal rhythm, normal heart sounds. Absent: systolic murmur, diastolic murmur, rubs, gallop, clicks GI/Abdominal exam: Present: soft, normal bowel sounds. Absent: distended, tenderness, guarding, rebound, rigid Extremities exam: Present: normal inspection, full ROM, normal capillary refill. Absent: tenderness, pedal edema, joint swelling, calf tenderness Back exam: Present: normal inspection Neurological exam: Present: alert, oriented X3, CN II-XII intact Psychiatric exam: Present: normal affect, normal mood Skin exam: Present: warm, dry, intact, normal color. Absent: rash Course Vital Signs 04/18/16 09:48 Temperature 97.9 F Pulse Rate 81 Respiratory 18 Rate Blood Pressure 108/65 O2 Sat by Pulse 96 Oximetry - Reevaluation(s) Reevaluation #1: 04/18/16 13:53 Patient was seen and evaluated by psychiatry EKG Findings - EKG Comments: EKG Findings:: EKG shows normal sinus rhythm rate of 69, VT 124, QRS 78, QTC 450 Medical Decision Making - Medical Decision Making 65 female the ER for evaluation. Patient coming in for evaluation of suicidal thoughts and suicidal attempt today. Patient just frustrated with her physician life. Patient will be admitted for psychiatric evaluation and treatment - Lab Data Result diagrams: 04/18/16 11:05 04/18/16 11:05 Lab Results 04/18/16 04/18/16 04/18/16 Range/Units 09:50 11:05 11:05 WBC 9.6 (3.8-10.6) k/uL RBC 4.86 (3.80-5.40) m/uL Hgb 15.3 (11.4-16.0) gm/dL Hct 46.7 H (34.0-46.0) % MCV 96.1 (80.0-100.0) fL MCH 31.5 (25.0-35.0) pg MCHC 32.7 (31.0-37.0) g/dL RDW 13.1 (11.5-15.5) % Plt Count 461 H (150-450) k/uL Neutrophils % 74 % Lymphocytes % 16 % Monocytes % 6 % Eosinophils % 3 % Basophils % 1 % Neutrophils # 7.0 (1.3-7.7) k/uL Lymphocytes # 1.5 (1.0-4.8) k/uL Monocytes # 0.6 (0-1.0) k/uL Eosinophils # 0.2 (0-0.7) k/uL Basophils # 0.1 (0-0.2) k/uL PT (9.0-12.0) sec INR (<1.1) Sodium 144 (137-145) mmol/L Potassium 4.7 (3.5-5.1) mmol/L Chloride 106 (98-107) mmol/L Carbon Dioxide 25 (22-30) mmol/L Anion Gap 13 mmol/L BUN 13 (7-17) mg/dL Creatinine 0.92 (0.52-1.04) mg/dL Est GFR (MDRD) Af Amer >60 (>60 ml/min/1.73 sqM) Est GFR (MDRD) Non-Af >60 (>60 ml/min/1.73 sqM) Glucose 78 (74-99) mg/dL Calcium 9.8 (8.4-10.2) mg/dL Total Bilirubin 0.8 (0.2-1.3) mg/dL AST 43 H (14-36) U/L ALT 27 (9-52) U/L Alkaline Phosphatase 94 (38-126) U/L Total Creatine Kinase (30-135) U/L CK-MB (CK-2) (0.0-2.4) ng/mL CK-MB (CK-2) Rel Index Total Protein 8.3 H (6.3-8.2) g/dL Albumin 4.4 (3.5-5.0) g/dL Lipase 409 H (23-300) U/L Urine Color Light Yellow Urine Appearance Clear (Clear) Urine pH 6.5 (5.0-8.0) Ur Specific [place] 1.004 (1.001-1.035) Urine Protein Negative (Negative) Urine Glucose (UA) Negative (Negative) Urine Ketones Negative (Negative) Urine Blood Negative (Negative) Urine Nitrate Negative (Negative) Urine Bilirubin Negative (Negative) Urine Urobilinogen <2.0 (<2.0) mg/dL Ur Leukocyte Esterase Trace H (Negative) Urine WBC 1 (0-5) /hpf Ur Squamous Epith Cells 4 (0-4) /hpf Urine Bacteria Rare H (None) /hpf Urine Mucus Rare H (None) /hpf Salicylates <1.0 mg/dL Urine Opiates Screen Detected H (NotDetected) Ur Oxycodone Screen Not Detected (NotDetected) Urine Methadone Screen Not Detected (NotDetected) Ur Propoxyphene Screen Not Detected (NotDetected) Acetaminophen <10.0 ug/mL Ur Barbiturates Screen Not Detected (NotDetected) U Tricyclic Antidepress Not Detected (NotDetected) Ur Phencyclidine Scrn Not Detected (NotDetected) Ur Amphetamines Screen Not Detected (NotDetected) U Methamphetamines Scrn Not Detected (NotDetected) U Benzodiazepines Scrn Not Detected (NotDetected) Urine Cocaine Screen Not Detected (NotDetected) U Marijuana (THC) Screen Not Detected (NotDetected) Serum Alcohol <10 mg/dL 04/18/16 04/18/16 Range/Units 11:05 11:05 WBC (3.8-10.6) k/uL RBC (3.80-5.40) m/uL Hgb (11.4-16.0) gm/dL Hct (34.0-46.0) % MCV (80.0-100.0) fL MCH (25.0-35.0) pg MCHC (31.0-37.0) g/dL RDW (11.5-15.5) % Plt Count (150-450) k/uL Neutrophils % % Lymphocytes % % Monocytes % % Eosinophils % % Basophils % % Neutrophils # (1.3-7.7) k/uL Lymphocytes # (1.0-4.8) k/uL Monocytes # (0-1.0) k/uL Eosinophils # (0-0.7) k/uL Basophils # (0-0.2) k/uL PT 11.0 (9.0-12.0) sec INR 1.1 (<1.1) Sodium (137-145) mmol/L Potassium (3.5-5.1) mmol/L Chloride (98-107) mmol/L Carbon Dioxide (22-30) mmol/L Anion Gap mmol/L BUN (7-17) mg/dL Creatinine (0.52-1.04) mg/dL Est GFR (MDRD) Af Amer (>60 ml/min/1.73 sqM) Est GFR (MDRD) Non-Af (>60 ml/min/1.73 sqM) Glucose (74-99) mg/dL Calcium (8.4-10.2) mg/dL Total Bilirubin (0.2-1.3) mg/dL AST (14-36) U/L ALT (9-52) U/L Alkaline Phosphatase (38-126) U/L Total Creatine Kinase 116 (30-135) U/L CK-MB (CK-2) 1.8 (0.0-2.4) ng/mL CK-MB (CK-2) Rel Index 1.6 Total Protein (6.3-8.2) g/dL Albumin (3.5-5.0) g/dL Lipase (23-300) U/L Urine Color Urine Appearance (Clear) Urine pH (5.0-8.0) Ur Specific [place] (1.001-1.035) Urine Protein (Negative) Urine Glucose (UA) (Negative) Urine Ketones (Negative) Urine Blood (Negative) Urine Nitrate (Negative) Urine Bilirubin (Negative) Urine Urobilinogen (<2.0) mg/dL Ur Leukocyte Esterase (Negative) Urine WBC (0-5) /hpf Ur Squamous Epith Cells (0-4) /hpf Urine Bacteria (None) /hpf Urine Mucus (None) /hpf Salicylates mg/dL Urine Opiates Screen (NotDetected) Ur Oxycodone Screen (NotDetected) Urine Methadone Screen (NotDetected) Ur Propoxyphene Screen (NotDetected) Acetaminophen ug/mL Ur Barbiturates Screen (NotDetected) U Tricyclic Antidepress (NotDetected) Ur Phencyclidine Scrn (NotDetected) Ur Amphetamines Screen (NotDetected) U Methamphetamines Scrn (NotDetected) U Benzodiazepines Scrn (NotDetected) Urine Cocaine Screen (NotDetected) U Marijuana (THC) Screen (NotDetected) Serum Alcohol mg/dL Disposition Clinical Impression: Suicidal ideation, Attempted suicide Disposition: TRANSFER TO PSYCH HOSP/UNIT Condition: Fair Referrals: Micky Nunn MD [Primary Care Provider] - 1-2 days
[2016-04-18] MEDS ORDERED: SODIUM CHLORIDE 0.9% 1,000 ML IV STA (10:21)
[2016-04-18 11:07] LABS: Appearance,Urine Clear (Clear); Bacteria,Urine Rare /hpf; Bilirubin,Urine Negative (Negative); Glucose,Urine (UA) Negative (Negative); Ketones,Urine Negative (Negative); Leukocyte Esterase,Urine Trace (Negative); Mucus,Urine Rare /hpf; Nitrite,Urine Negative (Negative); PH, Urine 6.5 (5.0-8.0); Particle Count 1374; Protein,Urine Negative (Negative); Specific Gravity,Urine 1.004 (1.001-1.035); Squamous Epithelial Cell,Urine 4 /hpf (0-4); UA Billing (MACRO vs. MICRO) MICRO; Urobilinogen,Urine <2.0 mg/dL (<2.0); WBC,Urine 1 /hpf (0-5)
[2016-04-18 11:25] LABS: Basophils # (A) 0.1 k/uL (0-0.2); Basophils % (A) 1 %; CH 31.3; CHCM 32.7; Eosinophils # (A) 0.2 k/uL (0-0.7); Eosinophils % (A) 3 %; HCT 46.7 % (34.0-46.0); HDW 2.17; HGB 15.3 gm/dL (11.4-16.0); Luc # (Auto) 0.14; Luc % (Auto) 1; Lymphocytes # (A) 1.5 k/uL (1.0-4.8); Lymphocytes % (A) 16 %; MCH 31.5 pg (25.0-35.0); MCHC 32.7 g/dL (31.0-37.0); MCV 96.1 fL (80.0-100.0); Mean Platelet Volume 6.9; Monocytes # (A) 0.6 k/uL (0-1.0); Monocytes % (A) 6 %; Neutrophils % (A) 74 %; RBC 4.86 m/uL (3.80-5.40); RDW 13.1 % (11.5-15.5); WBC 9.6 k/uL (3.8-10.6); WBC (Perox) 9.69
[2016-04-18 11:29] LABS: INR 1.1 (<1.1)
[2016-04-18 11:45] LABS: ALT 27 U/L (9-52); AST 43 U/L (14-36); Acetaminophen <10.0 ug/mL; Alcohol <10 mg/dL; Alkaline Phosphatase 94 U/L (38-126); Anion Gap 13 mmol/L; Blood Urea Nitrogen 13 mg/dL (7-17); Calcium 9.8 mg/dL (8.4-10.2); Carbon Dioxide 25 mmol/L (22-30); Chloride 106 mmol/L (98-107); Glucose 78 mg/dL (74-99); Non-African American GFR(MDRD) >60 (>60 ml/min/1.73 sqM); Salicylate <1.0 mg/dL; Sodium 144 mmol/L (137-145); Total Bilirubin 0.8 mg/dL (0.2-1.3); Total Protein 8.3 g/dL (6.3-8.2)
[2016-04-18 11:48] LABS: Potassium 4.7 mmol/L (3.5-5.1)
[2016-04-18 12:01] LABS: Creatine Kinase MB 1.8 ng/mL (0.0-2.4)
[2016-04-18] MEDS ORDERED: MAG HYDROX/AL HYDROX/SIMETH 30 ML CUP PO PRN (15:28)
[2016-04-18] MEDS ORDERED: ZIPRASIDONE 20 MG VIAL IM PRN (15:28)
[2016-04-18] MEDS ORDERED: ACETAMINOPHEN TAB 325 MG TAB PO PRN (15:28)
[2016-04-18] MEDS ORDERED: MAGNESIUM HYDROXIDE 2,400 MG/10 ML CUP PO PRN (15:28)
[2016-04-18] MEDS ORDERED: hydrOXYzine HCL 25 MG TAB PO PRN (15:31)
[2016-04-18] MEDS ORDERED: SERTRALINE 50 MG TAB PO SCH (21:00)
[2016-04-18] MEDS: MELOXICAM 7.5 MG TAB PO SCH (21:11)
[2016-04-18] MEDS: traZODone HCL 100 MG TAB PO SCH (21:12)
--- NOTE | 2016-04-19 09:51 | P.HP ---
Psychiatric H&P - . History & Physical: Allergies Allergy/AdvReac Type Severity Reaction Status Date / Time erythromycin base Allergy Rash/Hives Verified 04/18/16 10:00 [Erythromycin Base] etodolac [From Lodine] Allergy Rash/Hives Verified 04/18/16 10:00 flurazepam [From Dalmane] Allergy Rash/Hives Verified 04/18/16 10:00 Penicillins Allergy Rash/Hives Verified 04/18/16 10:00 pentazocine lactate Allergy Rash/Hives Verified 04/18/16 10:00 [From Talwin] secobarbital sodium Allergy Rash/Hives Verified 04/18/16 10:00 [From Seconal] Sulfa (Sulfonamide Allergy Rash/Hives Verified 04/18/16 10:00 Antibiotics) oatmeal Allergy Rash/Hives Uncoded 04/18/16 10:00 Vital Signs Temp 98.0 F 04/19/16 06:45 Pulse 66 04/19/16 06:45 Resp 18 04/19/16 06:45 BP 108/69 04/19/16 06:45 Pulse Ox 98 04/18/16 14:50 Intake & Output 04/18/16 04/19/16 04/19/16 18:59 06:59 18:59 Intake Total 1000 Balance 1000 Intake: Amount of Fluid Infused ( 1000 ml) Laboratory Last Values WBC 9.6 k/uL (3.8-10.6) 04/18/16 11:05 RBC 4.86 m/uL (3.80-5.40) 04/18/16 11:05 Hgb 15.3 gm/dL (11.4-16.0) 04/18/16 11:05 Hct 46.7 % (34.0-46.0) H 04/18/16 11:05 MCV 96.1 fL (80.0-100.0) 04/18/16 11:05 MCH 31.5 pg (25.0-35.0) 04/18/16 11:05 MCHC 32.7 g/dL (31.0-37.0) 04/18/16 11:05 RDW 13.1 % (11.5-15.5) 04/18/16 11:05 Plt Count 461 k/uL (150-450) H 04/18/16 11:05 Neutrophils % 74 % 04/18/16 11:05 Lymphocytes % 16 % 04/18/16 11:05 Monocytes % 6 % 04/18/16 11:05 Eosinophils % 3 % 04/18/16 11:05 Basophils % 1 % 04/18/16 11:05 Neutrophils # 7.0 k/uL (1.3-7.7) 04/18/16 11:05 Lymphocytes # 1.5 k/uL (1.0-4.8) 04/18/16 11:05 Monocytes # 0.6 k/uL (0-1.0) 04/18/16 11:05 Eosinophils # 0.2 k/uL (0-0.7) 04/18/16 11:05 Basophils # 0.1 k/uL (0-0.2) 04/18/16 11:05 PT 11.0 sec (9.0-12.0) 04/18/16 11:05 INR 1.1 (<1.1) 04/18/16 11:05 Sodium 144 mmol/L (137-145) 04/18/16 11:05 Potassium 4.7 mmol/L (3.5-5.1) 04/18/16 11:05 Chloride 106 mmol/L (98-107) 04/18/16 11:05 Carbon Dioxide 25 mmol/L (22-30) 04/18/16 11:05 Anion Gap 13 mmol/L 04/18/16 11:05 BUN 13 mg/dL (7-17) 04/18/16 11:05 Creatinine 0.92 mg/dL (0.52-1.04) 04/18/16 11:05 Est GFR (MDRD) Af Amer >60 (>60 ml/min/1.73 sqM) 04/18/16 11:05 Est GFR (MDRD) Non-Af >60 (>60 ml/min/1.73 sqM) 04/18/16 11:05 Glucose 78 mg/dL (74-99) 04/18/16 11:05 Calcium 9.8 mg/dL (8.4-10.2) 04/18/16 11:05 Total Bilirubin 0.8 mg/dL (0.2-1.3) 04/18/16 11:05 AST 43 U/L (14-36) H 04/18/16 11:05 ALT 27 U/L (9-52) 04/18/16 11:05 Alkaline Phosphatase 94 U/L (38-126) 04/18/16 11:05 Total Creatine Kinase 116 U/L (30-135) 04/18/16 11:05 CK-MB (CK-2) 1.8 ng/mL (0.0-2.4) 04/18/16 11:05 CK-MB (CK-2) Rel Index 1.6 04/18/16 11:05 Total Protein 8.3 g/dL (6.3-8.2) H 04/18/16 11:05 Albumin 4.4 g/dL (3.5-5.0) 04/18/16 11:05 Lipase 409 U/L (23-300) H 04/18/16 11:05 TSH 1.090 mIU/L (0.465-4.680) 04/18/16 11:05 Urine Color Light Yellow 04/18/16 09:50 Urine Appearance Clear (Clear) 04/18/16 09:50 Urine pH 6.5 (5.0-8.0) 04/18/16 09:50 Ur Specific [place] 1.004 (1.001-1.035) 04/18/16 09:50 Urine Protein Negative (Negative) 04/18/16 09:50 Urine Glucose (UA) Negative (Negative) 04/18/16 09:50 Urine Ketones Negative (Negative) 04/18/16 09:50 Urine Blood Negative (Negative) 04/18/16 09:50 Urine Nitrate Negative (Negative) 04/18/16 09:50 Urine Bilirubin Negative (Negative) 04/18/16 09:50 Urine Urobilinogen <2.0 mg/dL (<2.0) 04/18/16 09:50 Ur Leukocyte Esterase Trace (Negative) H 04/18/16 09:50 Urine WBC 1 /hpf (0-5) 04/18/16 09:50 Ur Squamous Epith Cells 4 /hpf (0-4) 04/18/16 09:50 Urine Bacteria Rare /hpf (None) H 04/18/16 09:50 Urine Mucus Rare /hpf (None) H 04/18/16 09:50 Salicylates <1.0 mg/dL 04/18/16 11:05 Urine Opiates Screen Detected (NotDetected) H 04/18/16 09:50 Ur Oxycodone Screen Not Detected (NotDetected) 04/18/16 09:50 Urine Methadone Screen Not Detected (NotDetected) 04/18/16 09:50 Ur Propoxyphene Screen Not Detected (NotDetected) 04/18/16 09:50 Acetaminophen <10.0 ug/mL 04/18/16 11:05 Ur Barbiturates Screen Not Detected (NotDetected) 04/18/16 09:50 U Tricyclic Antidepress Not Detected (NotDetected) 04/18/16 09:50 Ur Phencyclidine Scrn Not Detected (NotDetected) 04/18/16 09:50 Ur Amphetamines Screen Not Detected (NotDetected) 04/18/16 09:50 U Methamphetamines Scrn Not Detected (NotDetected) 04/18/16 09:50 U Benzodiazepines Scrn Not Detected (NotDetected) 04/18/16 09:50 Urine Cocaine Screen Not Detected (NotDetected) 04/18/16 09:50 U Marijuana (THC) Screen Not Detected (NotDetected) 04/18/16 09:50 Serum Alcohol <10 mg/dL 04/18/16 11:05 04/19/16 09:41 IDENTIFYING DATA: This patient is a 65-year-old female who was admitted to the mental health unit through the emergency room for suicidal ideation. HPI: The patient presents with a petition stating "Nicole stated I tried to kill myself I took a bunch of pills I have a bench warrant out for my arrest and I'm not going back to long-term suicidal thoughts for the last 24 hours only sleeping up to 3 hours a night". The patient states that her mood has been depressed she's been tearful on a daily basis and during the night. Sleep has been markedly reduced she's been feeling tired as a result. Appetite is been decreased she reports losing 40 pounds over the last 3 months. She feels hopeless and has no interest in activities. She endorses feelings of anxiety that are intermittent no report of panic attacks. She states that she felt she might as will kill herself because her guardian was treating her like "a piece of shit". She states that they threatened to throw her in long-term. She is endorsing no auditory or visual hallucinations. She is endorsing no specific delusions although there may be some delusional thought present. She is reporting no homicidal ideation. She states that she feels safe here in the hospital. She endorses no history of hypomanic or manic episodes. She reports having no guns at home. PAST PSYCHIATRIC HISTORY: This is the patient's third psychiatric admission. No history of suicide attempts other than what is noted in the petition. It is unclear if she actually took an overdose or was planning to. She has been maintained on Zoloft 50 mg at bedtime Rozerem 8 mg bedtime trazodone 100 mg bedtime. Reviewing previous notes it appears that the Zoloft was titrated higher in the past but apparently caused some blood pressure issues. She states that she has been on Prozac, Paxil, Celexa, Lexapro, Wellbutrin, Effexor , Cymbalta, Klonopin, Aricept, Seroquel. Most of these were tried by a primary care physician. She has no outpatient mental healthcare. PMH: History of multiple sclerosis, coronary artery disease with stent placement , hypertension, GERD, arthritis. No history of heart attacks or strokes. ALLERGIES: Erythromycin, Etodolac, Dalmane, penicillin, sulfa MEDICATIONS: Norvasc, Plavix, aspirin, Lasix, Aldactone CHEMICAL DEPENDENCY HISTORY: She reports no use of alcohol or illicit drugs including marijuana. No reported history of residential treatment for chemical dependency reasons. FAMILY PSYCHIATRIC HISTORY: Brother known to have depression, no suicides in the family FAMILY CHEMICAL DEPENDENCY HISTORY: None reported SOCIAL HISTORY: The patient is 65 years old she has been since 2012. She reports that [facility] Prior to that she resided at the [facility]. She was born and raised in the [facility]. She states that her parents were good and she had a good childhood. She is in seventh grade education no history of service. She has 1 son and 2 grandchildren and a great grandchild. She is currently on Social Security disability for her multiple sclerosis diagnosis. She does have a public guardian. She states that she is distressed as her son is in long-term as he is being accused of killing his . The patient states that his recently hung herself. MENTAL STATUS EXAM: The patient is a thin disheveled female appearing older than her stated age. Her hair is not brushed she is dressed in hospital gowns. Eye contact is appropriate. She is pleasant and cooperative and easily directable. She endorses a depressed mood she states that she has had suicidal ideation and her plan was to overdose with medications. No homicidal ideation. She is endorsing no auditory or visual hallucinations she is endorsing no specific delusions but there may be some delusional thought present regarding her guardian. She seated calmly in the chair without any psychomotor agitation there may be mild psychomotor slowing. She demonstrates no verbal or physical aggressiveness. She does not appear hypomanic or manic. She is oriented to day the week as the month is April and the year is 2015. She was able to register 3 words and after a delay of 3 minutes she recalled all 3 spontaneously. She was not able to name 5 major cities in the [place] but she was able to name the days of the week backwards without error. She was able to name 3 objects correctly. STRENGTHS/WEAKNESSES: Strengths: Income, guardian, residence weaknesses: Psychosocial dysfunction due to symptoms of depression INTELLECTUAL FUNCTIONING: Below average IMPRESSIONS: [] 1. Major depressive disorder recurrent severe, anxiety unspecified, rule out symptoms of psychosis, rule out neurocognitive impairment 2. Medical comorbidities include multiple sclerosis, coronary artery disease, hypertension, GERD, arthritis 3. Psychosocial dysfunction due to psychiatric symptoms PLAN: The patient has been admitted to the mental health unit at this point she is willing to sign in voluntarily. We reviewed her presenting symptoms and medication options. We decided to discontinue the Zoloft and initiate Remeron 15 mg at bedtime, we will continue the trazodone. She will undergo a routine medical consultation. Lab values and vital signs reviewed. Social work will meet with the patient to complete a psychosocial assessment and begin discharge planning. We will be in contact with the patient's guardian. She is encouraged to participate in the milieu we will monitor her for safety.
[2016-04-19] MEDS: ASPIRIN 81 MG CHEW PO SCH (10:27)
[2016-04-19] MEDS: FUROSEMIDE 40 MG TAB PO SCH (10:28)
[2016-04-19] MEDS: amLODIPine 5 MG TAB PO SCH (10:28)
[2016-04-19] MEDS: CLOPIDOGREL 75 MG TAB PO SCH (10:28)
[2016-04-19] MEDS: SPIRONOLACTONE 25 MG TAB PO SCH (10:28)
--- NOTE | 2016-04-19 17:37 | CONS ---
DATE OF CONSULTATION: Ms. Joya is a 65-year-old female who is well known to our service, admitted multiple times to hospital a few months ago for abdominal pain of unknown etiology. Patient underwent laparoscopic-assisted cholecystectomy at that time after EGD and colonoscopy. After multiple admissions and no ( ) of organic disease, there was some concern over some pain-seeking behavior. This was discussed with the DPOA. Patient was sent home on a no-narcotic list. Patient apparently comes into the hospital at this time, as she thought she was being treated "like a piece of shit" by her DPOA and took a bunch of pills trying to kill herself. Today during my examination patient stated that she just said that to get some attention and denies taking any medications at all. From our previous experience, patient's DPOA did state her medications are given with supervision. Unsure how patient was taking extra pills. Denies having any suicidal or homicidal ideations at this time. Denies having chest pain, difficulty in breathing, nausea, vomiting, urinary urgency or frequency, constipation or diarrhea at this time. Past medical history includes: 1. CAD. 2. Dementia. 3. Opiate abuse. 4. Hypertension. 5. GERD. Medications were reviewed and reconciled appropriately. PAST SURGICAL HISTORY: 1. EGD. 2. Cardiac catheterization. 3. Laparoscopic cholecystectomy. ALLERGIES: Multiple allergies, includin. ERYTHROMYCIN. 2. LODINE. 3. PENICILLIN. 4. TALWIN. 5. SULFA 6. DALMANE. 7. OATMEAL. REVIEW OF SYSTEMS: Fourteen-point review of system was done; none pertinent other than above mentioned in HPI. FAMILY HISTORY: Not pertinent to current admission. SOCIAL HISTORY: Patient currently lives in a facility, and a court-appointed rubber goods inspector currently makes her medical decisions. Patient smokes cigarettes. No alcohol or illicit drug use. Patient does have a long history of opiate abuse. Patient does have children; however, they do not speak to her due to some issues in the past. PHYSICAL EXAM: Vitals were reviewed and were within normal limits, including respiratory rate 18, blood pressure 108/65, heart rate 81. Saturating 96% on room air. GENERALLY: Patient appears to be alert, oriented x3. HEENT: The pupils are equal and reactive to light and accommodation. HEART: S1, S2 present. No murmur appreciated. LUNGS: Good air entry. No wheezing or rhonchi noted. ABDOMINAL EXAM: Soft, nontender, no organomegaly appreciated. GENITOURINARY: No Hughes in place. EXTREMITIES: Pulses can be palpated distally. Denies any tenderness on gross palpation. SKIN: On a gross skin exam does not appear to have any purpura or any skin rashes that were noted. NEUROLOGICALLY: Grossly cranial nerves 2-12 intact. No motor or sensory deficits noted. Laboratory data include hemoglobin 15.3, hematocrit 46.7, white count 9.6, platelets 461. TSH of 1. Lipase of 409. Sodium 144, potassium 4.7, chloride 106, bicarb 23. BUN 13, creatinine 0.92. Opiates were detected in the tox report. ASSESSMENT AND PLAN: 1. Major depression with suicidal ideation. 2. Opiate-seeking behavior. 3. History of diastolic heart failure with no acute exacerbation. 4. History of hypertension. 5. History of coronary artery disease. 6. Ongoing tobacco use. 7. Suspect underlying chronic obstructive pulmonary disease as well. 8. History of dementia. PLAN: No further testing is recommended. Patient is medically stable. Thank you for the consultation. Again, I know the patient from previous admissions. She does have opiate-seeking behavior, changes her answers on frequent questioning. This was also noted in her past, according to her rubber goods inspector. Patient today ( ) answer in regard to ever swallowing any pills, and she stated that she lied to the admitting physician.
[2016-04-19] MEDS: MELOXICAM 7.5 MG TAB PO SCH (20:51)
[2016-04-19] MEDS: traZODone HCL 100 MG TAB PO SCH (20:52)
[2016-04-19] MEDS: MIRTAZAPINE 15 MG TAB PO SCH (20:52)
[2016-04-19 21:04] LABS: Amorphous Sediment,Urine Occasional /hpf; Appearance,Urine Clear (Clear); Bilirubin,Urine Negative (Negative); Glucose,Urine (UA) Negative (Negative); Ketones,Urine Negative (Negative); Leukocyte Esterase,Urine Trace (Negative); Mucus,Urine Rare /hpf; Nitrite,Urine Negative (Negative); Particle Count 2502; Protein,Urine Negative (Negative); RBC,Urine 2 /hpf (0-5); Specific Gravity,Urine 1.011 (1.001-1.035); Squamous Epithelial Cell,Urine 4 /hpf (0-4); UA Billing (MACRO vs. MICRO) MICRO; Urobilinogen,Urine <2.0 mg/dL (<2.0); WBC,Urine 8 /hpf (0-5)
[2016-04-20] MEDS: FUROSEMIDE 40 MG TAB PO SCH (09:35)
[2016-04-20] MEDS: ASPIRIN 81 MG CHEW PO SCH (09:35)
[2016-04-20] MEDS: amLODIPine 5 MG TAB PO SCH (09:36)
[2016-04-20] MEDS: SPIRONOLACTONE 25 MG TAB PO SCH (09:36)
[2016-04-20] MEDS: CLOPIDOGREL 75 MG TAB PO SCH (09:36)
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
[2016-04-20] MEDS: MELOXICAM 7.5 MG TAB PO SCH (21:36)
[2016-04-20] MEDS: MIRTAZAPINE 15 MG TAB PO SCH (21:37)
[2016-04-20] MEDS: diphenhydrAMINE 25 MG CAP PO PRN (21:37)
[2016-04-20] MEDS: traZODone HCL 100 MG TAB PO SCH (21:37)
[2016-04-21] MEDS: CLOPIDOGREL 75 MG TAB PO SCH (08:47)
[2016-04-21] MEDS: amLODIPine 5 MG TAB PO SCH (08:47)
[2016-04-21] MEDS: SPIRONOLACTONE 25 MG TAB PO SCH (08:47)
[2016-04-21] MEDS: FUROSEMIDE 40 MG TAB PO SCH (08:47)
[2016-04-21] MEDS: ASPIRIN 81 MG CHEW PO SCH (08:47)
[2016-04-21 09:23] VITALS: BMI 20.1
[2016-04-21] MEDS ORDERED: LORATADINE 10 MG TAB PO ONE (14:45)
[2016-04-21] MEDS: CLOBETASOL PROP 0.05% CR 15GM TOPICAL SCH ×2 (14:59→22:42)
--- NOTE | 2016-04-21 15:15 | P.PN ---
Progress Note - Text SUBJECTIVE: I reviewed the medical record, interviewed the patient :65years old female with DX of depression ,anxiety ,history of opium use disorder , patient was admitted to [facility] after suicidal gesture ideation,today she presents with poor sleep saying "I can not sleep here ,I am not suicidal now ,I was scared that I will end in penitentiary" Patient was seen by DR LEMA for medical consult ,patient is well known to his service with extensive history for opium abuse and HX of Dementia PER NURSING STAFF :patient has abdominal rash ,re consult DR Lema ,add Benadryl PRN OBJECTIVE: She presented as a casually dressed female.,poor grooming ,body odor ,cooperative She maintained eye contact .,affect is not appropriate to thought content ,endorses some paranoia towards her neighbor . She denied current suicidal ideation or wishes. She denies hallucination idea of reference,she express some anxiety , thinking was concrete , ,place ,but not to date ,did recall insight and judgment are limited PLAN: Continue inpatient psychiatric hospitalization. Just started on remeron continue same dose. Encourage participation in therapeutic groups and activities. Assess clinical status response to treatment daily basis.
[2016-04-21] MEDS: MELOXICAM 7.5 MG TAB PO SCH (20:45)
[2016-04-21] MEDS: LORATADINE 10 MG TAB PO SCH (20:47)
[2016-04-21] MEDS: traZODone HCL 100 MG TAB PO SCH (20:47)
[2016-04-21] MEDS: MIRTAZAPINE 15 MG TAB PO SCH (20:47)
[2016-04-22] MEDS: diphenhydrAMINE 25 MG CAP PO PRN (00:08)
[2016-04-22 00:12] VITALS: TEMP 97.8
[2016-04-22] MEDS: amLODIPine 5 MG TAB PO SCH (08:57)
[2016-04-22] MEDS: ASPIRIN 81 MG CHEW PO SCH (08:57)
[2016-04-22] MEDS: CLOBETASOL PROP 0.05% CR 15GM TOPICAL SCH ×2 (08:57→21:14)
[2016-04-22] MEDS: CLOPIDOGREL 75 MG TAB PO SCH (08:57)
[2016-04-22] MEDS: SPIRONOLACTONE 25 MG TAB PO SCH (08:57)
[2016-04-22] MEDS: LORATADINE 10 MG TAB PO SCH ×2 (08:58→21:12)
[2016-04-22] MEDS: FUROSEMIDE 40 MG TAB PO SCH (08:58)
--- NOTE | 2016-04-22 10:16 | P.PN ---
Progress Note - Text Interval history: The patient is found in group she follows me to an interview room. She reports that her mood is improving. She states prior to coming in she felt as though people were neglecting her and didn't care. She states staff on the unit have been very nice to her and she is feeling better as a result. She reports complying with medication. She states that she has learned things in the anger management class that have been helpful area appetite stable. She chronically struggles with sleep difficulty but did get some sleep last night. She reports she is looking forward to being discharged. She states she regrets overdosing with medication and only took 4 extra pills versus the several that she initially reported. She states one was in aspirin, one was a blood thinner, and the other 2 were blood pressure medications. Mental status exam: The patient is alert she seated calmly eye contact is appropriate speech is spontaneous and fluent nonpressured. Hygiene grooming adequate. She reports that her mood is improving she is reporting no acute suicidal ideation intent or plan as people have been nice to her here. She is endorsing no specific delusion she is endorsing no auditory or visual hallucinations. Insight and judgment limited. She demonstrates no verbal or physical aggressiveness. She is oriented to person place month and year. She does not recall my name on approach. Plan: The patient will continue on her current medication. I will confer with staff during team meeting regarding her status over the weekend. We will consider a discharge sometime this week. We will continue to monitor for safety and encourage her participation in the milieu. Vital signs reviewed.
[2016-04-22] MEDS: MIRTAZAPINE 15 MG TAB PO SCH (21:11)
[2016-04-22] MEDS: traZODone HCL 100 MG TAB PO SCH (21:12)
[2016-04-22] MEDS: MELOXICAM 7.5 MG TAB PO SCH (21:12)
[2016-04-23] MEDS: SPIRONOLACTONE 25 MG TAB PO SCH ×2 (08:47→08:52)
[2016-04-23] MEDS: ASPIRIN 81 MG CHEW PO SCH (08:47)
[2016-04-23] MEDS: LORATADINE 10 MG TAB PO SCH (08:47)
[2016-04-23] MEDS: CLOPIDOGREL 75 MG TAB PO SCH (08:47)
[2016-04-23] MEDS: amLODIPine 5 MG TAB PO SCH ×2 (08:48→08:51)
[2016-04-23] MEDS: FUROSEMIDE 40 MG TAB PO SCH ×2 (08:48→08:52)
[2016-04-23] MEDS: CLOBETASOL PROP 0.05% CR 15GM TOPICAL SCH (08:48)
[2016-04-23 08:59] VITALS: RESP 20
[2016-04-23 09:39] VITALS: BP 103/55; PULSE 88
--- NOTE | 2016-04-23 09:55 | P.DS ---
Providers Date of admission: 04/18/16 14:27 Expected date of discharge: 04/23/16 Attending physician: Nathan Garcia Consults: 04/18/16 15:48 Consult Physician Routine Consulting Provider: Tashi Edge Consult Reason/Comments: history and physical Do you want consulting provider notified?: Yes 04/20/16 20:57 Consult Physician Routine Consulting Provider: Tashi Edge Consult Reason/Comments: Abdominal rash Do you want consulting provider notified?: Yes Primary care physician: Micky Nunn - Ania Diagnosis(es) (1) Major depressive disorder, recurrent Current Visit: Yes Status: Acute Priority: High Hospital Course: This patient is a 65-year-old female who was admitted to the mental health unit to the emergency room for suicidal ideation. The patient stated she had tried to commit suicide by overdosing with medications. Later during the admission she states she only took 4 pills an exaggerated the number because "I wanted attention". She reported having reduced sleep feeling tired appetite was decreased. She reported intermittent symptoms of anxiety. For full detail please refer to my psychiatric evaluation dated 04/19/2016. Summary of hospital course: The patient was admitted to the mental health unit she signed in voluntarily. We reviewed her presenting symptoms and medication options. We decided to discontinue Zoloft and proceed with Remeron 15 mg at bedtime and trazodone 100 mg at bedtime. She reported no side effects either medication she felt her mood was improving during the course of the hospitalization. She underwent a routine medical consultation. She attended group she demonstrated no agitated behavior. She noted a resolution of any suicidal thoughts. Numerous time she stated "I can't kill myself or I will go to [facility]". Mental status exam: The patient is alert she seated calmly she is cooperative and pleasant. Eye contact is good speech is fluent spontaneous nonpressured. She states her mood is "good". Affect is euthymic she demonstrates an appropriate range of affect. She is reporting no hopelessness thinking no suicidal or homicidal ideation intent or plan. She is endorsing no auditory or visual hallucinations. She is endorsing no specific delusions. Thought process is linear today she does not demonstrate any tangential thinking loose associations or flight of ideas. She demonstrates no verbal or physical aggressiveness. No evidence of tremor. Insight and judgment grossly intact. She is oriented to person place and date. Impressions 1. Major depressive disorder recurrent severe without psychosis, anxiety unspecified, rule out neurocognitive impairment 2. Medical comorbidities including multiple sclerosis, coronary artery disease , hypertension, GERD, arthritis 3. Psychosocial dysfunction due to psychiatric symptoms including personality disorder symptoms Plan: The patient will continue on Remeron 15 mg at bedtime trazodone 100 mg at bedtime. Social work will arrange for outpatient mental health follow-up. Her guardian's office will be contacted to arrange transportation home. There is no imminent safety risk the patient is appropriate for transition to outpatient mental health care. She is instructed to return to emergency room if any acute safety concerns. Patient Condition at Discharge: Stable Plan - Discharge Summary New Discharge Prescriptions: Loratadine [Claritin] 5 mg PO Q12HR #30 tab Mirtazapine [Remeron] 15 mg PO HS #30 tab traZODone HCL [Desyrel] 100 mg PO HS 30 Days Discharge Medication List Clopidogrel [Plavix] 75 mg PO DAILY #14 tab 12/02/14 [Rx] amLODIPine [Norvasc] 5 mg PO DAILY 09/22/15 [History] Spironolactone [Aldactone] 25 mg PO DAILY 12/12/15 [History] Aspirin EC [Ecotrin Low Dose] 81 mg PO DAILY 04/18/16 [History] Furosemide [Lasix] 40 mg PO DAILY 04/18/16 [History] Meloxicam [Mobic] 7.5 mg PO HS 04/18/16 [History] hydrOXYzine HCL [Atarax] 25 mg PO Q6H PRN 04/18/16 [History] Loratadine [Claritin] 5 mg PO Q12HR #30 tab 04/23/16 [Rx] Mirtazapine [Remeron] 15 mg PO HS #30 tab 04/23/16 [Rx] traZODone HCL [Desyrel] 100 mg PO HS 30 Days 04/23/16 [Rx] Follow up Appointment(s)/Referral(s): Micky Nunn MD [Primary Care Provider] - 1-2 days
== END 2016-04-23 14:28 | disposition home or self-care (01) | DRG 885 ==
LOC: EC 09:43 → 3MHU 14:27
PROVIDERS: ADMIT Psychiatry & Neurology Psychiatry; ATTEND Psychiatry & Neurology Psychiatry
DX: F33.2 Major depressive disorder, recurrent severe without psychotic features (principal); I50.32 Chronic diastolic (congestive) heart failure; R45.851 Suicidal ideations; F03.90 Unspecified dementia, unspecified severity, without behavioral disturbance, psychotic disturbance, mood disturbance, and anxiety; G35 Multiple sclerosis; F17.210 Nicotine dependence, cigarettes, uncomplicated; F41.9 Anxiety disorder, unspecified; F60.9 Personality disorder, unspecified; G25.81 Restless legs syndrome; I10 Essential (primary) hypertension; I25.10 Atherosclerotic heart disease of native coronary artery without angina pectoris; K21.9 Gastro-esophageal reflux disease without esophagitis; M19.90 Unspecified osteoarthritis, unspecified site; F11.10 Opioid abuse, uncomplicated; R21 Rash and other nonspecific skin eruption; M47.9 Spondylosis, unspecified; Z79.899 Other long term (current) drug therapy; Z79.02 Long term (current) use of antithrombotics/antiplatelets; Z79.82 Long term (current) use of aspirin; Z86.14 Personal history of Methicillin resistant Staphylococcus aureus infection; Z95.5 Presence of coronary angioplasty implant and graft; Z88.1 Allergy status to other antibiotic agents; Z88.0 Allergy status to penicillin; Z88.2 Allergy status to sulfonamides; Z88.8 Allergy status to other drugs, medicaments and biological substances
CPT/HCPCS: 36415; 80053; 80306; 80320; 81001; 82075; 82550; 82553; 83520; 83690; 84443; 85025; 85610; 87086; 93005; 96360; 99285

== ENCOUNTER 2016-05-06 20:40 | Observation (INO) | payer MEDICARE ==
[2016-05-06] MEDS ORDERED: SODIUM CHLORIDE 0.9% 1,000 ML IV STA (21:29)
[2016-05-06] MEDS ORDERED: NITROGLYCERIN OINT 1 INCH/GM PACKET TOPICAL STA (21:29)
[2016-05-06] MEDS ORDERED: MORPHINE SULFATE 4 MG/ML SYRINGE IV STA (21:29)
[2016-05-06 21:51] LABS: Basophils # (A) 0.1 k/uL (0-0.2); Basophils % (A) 1 %; CH 31.6; CHCM 32.8; Eosinophils # (A) 0.2 k/uL (0-0.7); Eosinophils % (A) 2 %; HCT 44.7 % (34.0-46.0); HDW 2.24; HGB 14.7 gm/dL (11.4-16.0); Luc % (Auto) 3; Lymphocytes # (A) 1.9 k/uL (1.0-4.8); Lymphocytes % (A) 21 %; MCH 31.8 pg (25.0-35.0); MCHC 32.9 g/dL (31.0-37.0); MCV 96.6 fL (80.0-100.0); Mean Platelet Volume 7.7; Monocytes # (A) 0.7 k/uL (0-1.0); Monocytes % (A) 8 %; Neutrophils % (A) 66 %; RBC 4.62 m/uL (3.80-5.40); RDW 12.6 % (11.5-15.5); WBC 9.2 k/uL (3.8-10.6); WBC (Perox) 8.86
--- NOTE | 2016-05-06 22:05 | XR ---
EXAMINATION TYPE: XR chest 2V DATE OF EXAM: 05/06/2016 9:59 PM COMPARISON: Prior chest x-ray March 19, 2016 HISTORY: Chest pain. TECHNIQUE: Frontal and lateral views of the chest are obtained. FINDINGS: There is chronic parenchymal change without suspicious focal air space opacity, pleural ef fusion, or pneumothorax seen. The cardiac silhouette size is within normal limits with atherosclerot ic change in the aortic knob. The osseous structures are demineralized. IMPRESSION: Chronic parenchymal change without acute pulmonary process.
[2016-05-06 22:25] LABS: Creatine Kinase 114 U/L (30-135)
[2016-05-06 22:28] LABS: ALT 21 U/L (9-52); AST 26 U/L (14-36); Alkaline Phosphatase 90 U/L (38-126); Anion Gap 10 mmol/L; Blood Urea Nitrogen 10 mg/dL (7-17); Calcium 9.6 mg/dL (8.4-10.2); Carbon Dioxide 26 mmol/L (22-30); Chloride 103 mmol/L (98-107); Glucose 88 mg/dL (74-99); Magnesium 1.9 mg/dL (1.6-2.3); Non-African American GFR(MDRD) >60 (>60 ml/min/1.73 sqM); Potassium 4.1 mmol/L (3.5-5.1); Sodium 139 mmol/L (137-145); Total Bilirubin 0.5 mg/dL (0.2-1.3); Total Protein 7.7 g/dL (6.3-8.2)
[2016-05-06 22:38] LABS: Creatine Kinase MB 0.9 ng/mL (0.0-2.4); Troponin I <0.012 ng/mL (0.000-0.034)
[2016-05-06 22:48] LABS: INR 1.1 (<1.1); Prothrombin Time 10.8 sec (9.0-12.0)
[2016-05-06] MEDS ORDERED: HEPARIN SODIUM,PORCINE/D5W PMX 25,000 UNIT in DEXTROSE/WATER 1 500ML.BAG IV SCH (23:45)
--- NOTE | 2016-05-06 23:46 | ED ---
Chest Pain HPI - General Chief Complaint: Chest Pain Stated Complaint: Chest Pain Time Seen by Provider: 05/06/16 20:49 Source: patient Mode of arrival: ambulatory Limitations: no limitations - History of Present Illness Initial Comments: Chest pain for 3 hours today is affecting her left arm going to the neck she does have a history of heart disease had a stent put in about 5 years ago since then she don't recall clearly seeing any funds transfer clerk. No chest pain gets worse when she takes a deep breath she is a smoker and she has a chronic smoker' s cough he does bring up much of phlegm but denies any fever or chills. No headaches no Neck stiffness no sinus symptoms of TIA or CVA - Related Data Home Medications Medication Instructions Recorded Confirmed amLODIPine [Norvasc] 5 mg PO DAILY 09/22/15 05/06/16 Spironolactone [Aldactone] 25 mg PO DAILY 12/12/15 05/06/16 Aspirin EC [Ecotrin Low Dose] 81 mg PO DAILY 04/18/16 05/06/16 Furosemide [Lasix] 40 mg PO DAILY 04/18/16 05/06/16 Meloxicam [Mobic] 7.5 mg PO HS 04/18/16 05/06/16 hydrOXYzine HCL [Atarax] 25 mg PO Q6H PRN 04/18/16 05/06/16 Sertraline [Zoloft] 50 mg PO DAILY 05/06/16 05/06/16 Previous Rx's Medication Instructions Recorded Clopidogrel [Plavix] 75 mg PO DAILY #14 tab 12/02/14 Loratadine [Claritin] 5 mg PO Q12HR #30 tab 04/23/16 Mirtazapine [Remeron] 15 mg PO HS #30 tab 04/23/16 traZODone HCL [Desyrel] 100 mg PO HS 30 Days 04/23/16 Allergies Allergy/AdvReac Type Severity Reaction Status Date / Time erythromycin base Allergy Rash/Hives Verified 05/06/16 20:51 [Erythromycin Base] etodolac [From Lodine] Allergy Rash/Hives Verified 05/06/16 20:51 flurazepam [From Dalmane] Allergy Rash/Hives Verified 05/06/16 20:51 Penicillins Allergy Rash/Hives Verified 05/06/16 20:51 pentazocine lactate Allergy Rash/Hives Verified 05/06/16 20:51 [From Talwin] secobarbital sodium Allergy Rash/Hives Verified 05/06/16 20:51 [From Seconal] Sulfa (Sulfonamide Allergy Rash/Hives Verified 05/06/16 20:51 Antibiotics) oatmeal Allergy Rash/Hives Uncoded 05/06/16 20:50 Review of Systems ROS Statement: Those systems with pertinent positive or pertinent negative responses have been documented in the HPI. ROS Other: All systems not noted in ROS Statement are negative. Past Medical History Past Medical History: Coronary Artery Disease (CAD), Dementia, GERD/Reflux, Hypertension, Musculoskeletal Disorder Additional Past Medical History / Comment(s): Darier Disease, MS, RLS, bilateral legs cramp when walking long distances, UTI, DJD lumbar spine, pt denies dementia-it is in old hx however. History of Any Multi-Drug Resistant Organisms: MRSA Date of last positivie culture/infection: 09/05/2012 MDRO Source:: Urine Past Surgical History: Cholecystectomy, Heart Catheterization With Stent, Hernia Repair, Hysterectomy, Orthopedic Surgery Additional Past Surgical History / Comment(s): surgeries on left leg due to accident; Four lipomas removed from lower back; bunionectomy on left foot in August 2013, states, bowel prolapsed and they put back in place, picc line for ABX tx for MRSA 2012-since removed. Past Anesthesia/Blood Transfusion Reactions: No Reported Reaction Additional Past Anesthesia/Blood Transfusion Reaction / Comment(s): . Date of Last Stent Placement:: 2011 Past Psychological History: Depression Additional Psychological History / Comment(s): She is independent. reports having a Legal Gaurdian. She uses no assistive device. She does not drive. patient denies depression but found in old history Smoking Status: Current every day smoker Past Alcohol Use History: None Reported Additional Past Alcohol Use History / Comment(s): . Past Drug Use History: None Reported - Past Family History Father Family Medical History: No Reported History Additional Family Medical History / Comment(s): father at age 92 yrs. Mother Family Medical History: COPD Additional Family Medical History / Comment(s): Mother at age 62yrs. General Exam - General Exam Comments Initial Comments: General: The patient is awake and alert, looks pale and tired Skin: Skin is warm and dry and no rashes or lesions are noted. Eye: Pupils are equal, round and reactive to light, extra-ocular movements are intact; there is normal conjunctiva bilaterally. Ears, nose, mouth and throat: There are moist mucous membranes and no oral lesions. Neck: The neck is supple, there is no tenderness or JVD. Cardiovascular: There is a regular rate and rhythm. No murmur, rub or gallop is appreciated. Respiratory: To auscultation bilateral, insistent with this moderate to severe COPD Gastrointestinal: Soft, non-distended, non-tender abdomen without masses or organomegaly noted. There is no rebound or guarding present. Bowel sounds are unremarkable. Back: There is no tenderness to palpation in the midline. There is no obvious deformity. Musculoskeletal: Normal ROM, no tenderness, There is no pedal edema. There is no calf tenderness or swelling. No cords were appreciated. Neurological: CN II-XII intact, Cranial nerves III through XII are intact. There are no obvious motor or sensory deficits. Coordination appears grossly intact. Speech is normal. Psychiatric: Cooperative, appropriate mood & affect, normal judgment. Limitations: no limitations Course Vital Signs 05/06/16 05/06/16 05/06/16 20:47 21:46 23:04 Temperature 98.6 F Pulse Rate 72 62 67 Respiratory 18 18 18 Rate Blood Pressure 132/70 131/78 144/76 O2 Sat by Pulse 96 97 98 Oximetry KG is normal sinus rhythm ventricular rate is 68 MN interval is 126, respiratory duration is 80 QT/QTc is 410/435 review of this EKG did not reveal ST elevation or ST depression She was reassessed several times last reassessment was done 2329 she still had a chest pain considering her history of heart disease in multiple risk factors she be heparinized be admitted for serial cardiac markers to Dr. Carter and discussed with him he agrees with that and will get cardiology report tomorrow morning Critical Care Time Total Critical Care Time: 45 Critical Care Time: Chest pain and numb with a multiple risk factors though her CBC, CMP, d-dimer, troponin, EKG and chest x-ray are negative she has multiple risk factors and pain continues and she does not have a pain every day this is the pain after several years she stated considering that we'll hospitalize her preparation to get him aspirin blood thinners and cardiology consult Disposition Clinical Impression: Chest pain, Pleuritic chest pain, Acute exacerbation of chronic obstructive pulmonary disease (COPD) Disposition: ADMITTED IP TO THIS HOSP Condition: Fair
[2016-05-06] MEDS ORDERED: MORPHINE SULFATE 2 MG/ML SYRINGE IVP PRN (23:53)
[2016-05-06] MEDS ORDERED: NITROGLYCERIN SL TABS 0.4 MG TAB SUBLINGUAL PRN (23:53)
[2016-05-06] MEDS ORDERED: HEPARIN SODIUM,PORCINE 5,000 UNIT/ML 1 ML VIAL IV ONE (23:53)
[2016-05-06] MEDS ORDERED: ACETAMINOPHEN TAB 325 MG TAB PO PRN (23:53)
[2016-05-07] MEDS ORDERED: hydrOXYzine HCL 25 MG TAB PO PRN
[2016-05-07] MEDS ORDERED: HEPARIN SODIUM,PORCINE 5,000 UNIT/ML 1 ML VIAL IV PRN (00:44)
[2016-05-07 01:13] VITALS: BMI 20.6
[2016-05-07 04:15] LABS: Creatine Kinase 94 U/L (30-135)
[2016-05-07 04:28] LABS: Creatine Kinase MB 0.9 ng/mL (0.0-2.4); Troponin I <0.012 ng/mL (0.000-0.034)
[2016-05-07 05:41] LABS: Cholesterol 155 mg/dL (<200); HDL Cholesterol 49 mg/dL (40-60); Triglycerides 79 mg/dL (<150)
[2016-05-07 07:56] VITALS: RESP 18
--- NOTE | 2016-05-07 08:53 | P.CRDCN ---
History of Present Illness Consult date: 05/07/16 Requesting physician: Toni Carter Consult reason: chest pain Chief complaint: Chest pain History of present illness: This is a 65-year-old female with known history of coronary artery disease and prior stent placement, patient is unsure exactly of what facility she had a stent performed in. 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 Patient does have known history of hypertension, hyperlipidemia, GERD, nicotine dependence, she states that she smokes 2 packs of cigarettes per day, and depression. Patient presents to the hospital with symptoms of midsternal chest heaviness with radiation to the back and down the left arm. She states that the symptoms lasted several hours in duration, symptoms worsened with deep breathing , positive chest wall tenderness at that time. EKG performed on admission showed a normal sinus rhythm with no acute changes. Repeat EKG performed this morning shows normal sinus rhythm with no acute changes. Chest x-ray reveals chronic changes without any acute cardiopulmonary process. Laboratory data was reviewed, CBC normal, d-dimer negative, potassium 4.1, BUN 10, creatinine 0.8. Troponins have been negative 2. Blood pressure on arrival 132/70 with a heart rate in the 70s, 96% on room air. At the time of my examination this morning, patient states she is currently chest pain free. Past Medical History Past Medical History: Coronary Artery Disease (CAD), COPD, Dementia, GERD/Reflux , Hypertension, Musculoskeletal Disorder Additional Past Medical History / Comment(s): Darier Disease, MS, RLS, bilateral legs cramp when walking long distances, UTI, DJD lumbar spine, pancreatitis, pt denies dementia-it is in old hx however. History of Any Multi-Drug Resistant Organisms: MRSA Date of last positivie culture/infection: 09/05/2012 MDRO Source:: Urine Past Surgical History: Cholecystectomy, Heart Catheterization With Stent, Hernia Repair, Hysterectomy, Orthopedic Surgery Additional Past Surgical History / Comment(s): surgeries on left leg due to accident; Four lipomas removed from lower back; bunionectomy on left foot in August 2013, states, bowel prolapsed and they put back in place, picc line for ABX tx for MRSA 2012-since removed. Past Anesthesia/Blood Transfusion Reactions: No Reported Reaction Additional Past Anesthesia/Blood Transfusion Reaction / Comment(s): . Date of Last Stent Placement:: 2011 Past Psychological History: Depression Additional Psychological History / Comment(s): She is independent. reports having a Legal Gaurdian. She uses no assistive device. She does not drive. patient denies depression but found in old history Smoking Status: Current every day smoker Past Alcohol Use History: None Reported Additional Past Alcohol Use History / Comment(s): . Past Drug Use History: None Reported - Past Family History Father Family Medical History: No Reported History Additional Family Medical History / Comment(s): father at age 92 yrs. Mother Family Medical History: COPD Additional Family Medical History / Comment(s): Mother at age 62yrs. Medications and Allergies Home Medications Medication Instructions Recorded Confirmed Type amLODIPine [Norvasc] 5 mg PO DAILY 09/22/15 05/06/16 History Spironolactone [Aldactone] 25 mg PO DAILY 12/12/15 05/06/16 History Aspirin EC [Ecotrin Low Dose] 81 mg PO DAILY 04/18/16 05/06/16 History Furosemide [Lasix] 40 mg PO DAILY 04/18/16 05/06/16 History Meloxicam [Mobic] 7.5 mg PO HS 04/18/16 05/06/16 History hydrOXYzine HCL [Atarax] 25 mg PO Q6H PRN 04/18/16 05/06/16 History Sertraline [Zoloft] 50 mg PO DAILY 05/06/16 05/06/16 History Allergies Allergy/AdvReac Type Severity Reaction Status Date / Time erythromycin base Allergy Rash/Hives Verified 05/06/16 20:51 [Erythromycin Base] etodolac [From Lod[place]] Allergy Rash/Hives Verified 05/06/16 20:51 flurazepam [From Dalmane] Allergy Rash/Hives Verified 05/06/16 20:51 Penicillins Allergy Rash/Hives Verified 05/06/16 20:51 pentazocine lactate Allergy Rash/Hives Verified 05/06/16 20:51 [From Talwin] secobarbital sodium Allergy Rash/Hives Verified 05/06/16 20:51 [From Seconal] Sulfa (Sulfonamide Allergy Rash/Hives Verified 05/06/16 20:51 Antibiotics) oatmeal Allergy Rash/Hives Uncoded 05/06/16 20:50 Physical Exam Vitals: Vital Signs Temp Pulse Pulse Resp BP BP Pulse Ox 05/07/16 07:55 98.1 F 59 L 18 113/55 96 05/07/16 04:00 97.8 F 56 L 16 102/59 94 L 05/07/16 03:44 60 16 05/07/16 01:20 65 16 05/07/16 00:38 97.9 F 63 16 155/80 97 05/07/16 00:30 98.0 F 88 18 136/74 98 Intake and Output 05/06/16 05/07/16 05/07/16 22:59 06:59 14:59 Other: # Voids 2 Weight 51.256 kg PHYSICAL EXAMINATION: HEENT: Head is atraumatic, normocephalic. Pupils equal, round. Neck is supple. There is no elevated jugular venous pressure. Patient does have a petechiae-type rash noted at the right neck area. HEART EXAMINATION: Heart S1 and S2 systolic murmur is heard. CHEST EXAMINATION: Lungs are clear to auscultation and precussion. No chest wall tenderness is noted on palpation or with deep breathing. ABDOMEN: Soft, nontender. Bowel sounds are heard. No organomegaly noted. EXTREMITIES: 2+ peripheral pulses with no evidence of peripheral edema and no calf tenderness noted. NEUROLOGIC patient is awake, alert and oriented -3. . Results 05/06/16 21:30 05/06/16 21:30 Cardiac Enzymes 05/07/16 Range/Units 03:15 CK-MB (CK-2) 0.9 (0.0-2.4) ng/mL Troponin I <0.012 (0.000-0.034) ng/mL Coagulation 05/07/16 Range/Units 07:00 APTT 24.8 (22.0-30.0) sec Lipids 05/07/16 Range/Units 03:25 Triglycerides 79 (<150) mg/dL Cholesterol 155 (<200) mg/dL HDL Cholesterol 49 (40-60) mg/dL Current Medications Generic Name Dose Route Start Last Admin Trade Name Freq PRN Reason Stop Dose Admin Acetaminophen 650 mg 05/06/16 23:53 Tylenol Tab PO Q4HR PRN Pain Amlodipine Besylate 5 mg 05/07/16 09:00 Norvasc PO DAILY [facility] Aspirin 325 mg 05/07/16 09:00 Aspirin PO DAILY [facility] Clopidogrel Bisulfate 75 mg 05/07/16 09:00 Plavix PO DAILY [facility] Furosemide 40 mg 05/07/16 09:00 Lasix PO DAILY [facility] Heparin Sodium (Porcine) 0 unit 05/07/16 00:44 Heparin IV PER PROTOCOL PRN Low PTT Protocol Hydroxyzine HCl 25 mg 05/07/16 00:00 Atarax PO Q6H PRN Itching Heparin Sodium/Dextrose 25,000 500 mls @ 12.3 mls/hr 05/06/16 23:45 05/07/16 01:14 unit/ IV Solution IV 12 units/kg/hr .Q24H [place] 12.3 mls/hr Protocol Administration 12 UNITS/KG/HR Loratadine 5 mg 05/07/16 09:00 Claritin PO Q12HR [facility] Mirtazapine 15 mg 05/07/16 21:00 Remeron PO HS [facility] Morphine Sulfate 2 mg 05/06/16 23:53 Morphine Sulfate (Inj) IVP Q5M PRN Chest Pain Nitroglycerin 0.4 mg 05/06/16 23:53 Nitrostat SUBLINGUAL Q5M PRN Chest Pain Sertraline HCl 50 mg 05/07/16 09:00 Zoloft PO DAILY [facility] Spironolactone 25 mg 05/07/16 09:00 Aldactone PO DAILY [facility] Trazodone HCl 100 mg 05/07/16 21:00 Desyrel PO HS [place] Intake and Output 05/06/16 05/07/16 05/07/16 22:59 06:59 14:59 Other: # Voids 2 Weight 51.256 kg EKG Interpretations (text) EKG shows normal sinus rhythm with no acute changes. Assessment and Plan Plan: Assessment and plan #1 chest pain atypical in nature, troponins 2 negative. EKG shows normal sinus rhythm with no acute changes. D-dimer negative. #2 known history of coronary artery disease with prior stent placement exact details unavailable at this time. #3 hypertension #4 hyperlipidemia #5 COPD #6 nicotine dependence, patient smokes 2 packs of cigarettes per day #7 depression Plan We will obtain an echocardiogram with Doppler study. We will also obtain a third troponin value, discontinue IV heparin. Patient has been advised to undergo stress test today, if the test is positive patient may require cardiac catheterization, if the test is negative from cardiology standpoint she may be discharged home. Patient has been advised regarding the importance of follow- up with cardiology with her prior cardiac history. She's also been advised regarding the importance of nicotine cessation. Further recommendations to follow DNP note has been reviewed, I agree with a documented findings and plan of care. Patient was seen and examined.
[2016-05-07] MEDS ORDERED: FUROSEMIDE 40 MG TAB PO SCH (09:00)
[2016-05-07] MEDS ORDERED: CLOPIDOGREL 75 MG TAB PO SCH (09:00)
[2016-05-07] MEDS ORDERED: LORATADINE 10 MG TAB PO SCH (09:00)
[2016-05-07] MEDS ORDERED: SERTRALINE 50 MG TAB PO SCH (09:00)
[2016-05-07] MEDS ORDERED: ASPIRIN 325 MG TAB PO SCH (09:00)
[2016-05-07] MEDS ORDERED: SPIRONOLACTONE 25 MG TAB PO SCH (09:00)
[2016-05-07] MEDS ORDERED: amLODIPine 5 MG TAB PO SCH (09:00)
[2016-05-07] MEDS ORDERED: ASPIRIN 81 MG CHEW PO SCH (09:00)
[2016-05-07] MEDS ORDERED: DOBUTamine DRIP for NUC MED 500 MG in DEXTROSE/WATER 1 250ML.BAG IV ONE (09:47)
[2016-05-07 10:30] LABS: Creatine Kinase 85 U/L (30-135)
[2016-05-07 10:44] LABS: Creatine Kinase MB 0.9 ng/mL (0.0-2.4); Troponin I <0.012 ng/mL (0.000-0.034)
[2016-05-07 11:58] VITALS: BP 107/62; PULSE 68; TEMP 97.9
--- NOTE | 2016-05-07 12:04 | ECHOS ---
DATE OF SERVICE: 05/07/2016 AGE: 65Y SEX: F HT: 62 WT: 113 lbs. Protocol Obie: Others: Dobutamine Stress Echo Stage: Dur. of Exercise: *Heart Rate Blood Pressure *Rest: 57 Rest: 111/63 * *Max. Achieved: 134 Maximum BP: 163/62 85% PMHR: 130 100% PMHR: 153 *METS: INDICATIONS: Chest pain. MEDICATIONS: Baseline EKG shows sinus rhythm, normal axis, normal intervals. Patient was given intravenous dobutamine over a period of 10 minutes as per protocol achieving 87% of predicted maximal heart rate without chest pain or diagnostic ST segment depression. At peak exercise, there was 0.[address] segment depression noted. Baseline echo shows normal left ventricular size, wall motion and systolic function. Post dobutamine infusion, there is normal hyperdynamic response of all segments of myocardium noted. CONCLUSION: 1. Nondiagnostic EKG changes with dobutamine infusion. 2. Negative dobutamine echo.
--- NOTE | 2016-05-07 18:00 | HP ---
DATE OF ADMISSION: 05/06/2016 PRESENTING COMPLAINT: Sharp chest pain. HISTORY OF PRESENTING COMPLAINT: This is a 65-year-old patient of Dr. Nunn, [facility]. Patient has a legal guardian, Cece ( ). Patient's chronic stable medical conditions include COPD, GERD, hyperlipidemia, osteoarthritis, remote history of multiple sclerosis, restless leg syndrome, depression. Patient presented yesterday evening with 4 hours of central stabbing sharp chest pain, slight cough. No chest pressure. No dizziness. Patient continues to smoke. Slightly worse with coughing and deep inhalation. Not really related to exertion. Hence patient is admitted, given history of coronary artery disease. REVIEW OF SYSTEMS: CONSTITUTIONAL: None. HEENT: None. RESPIRATORY: Occasional wheezing. CARDIOVASCULAR: As above. GASTROINTESTINAL: Heartburn. GENITOURINARY: None. MUSCULOSKELETAL: Aches and pains in different joints. DERMATOLOGICAL: None. HEMATOLOGICAL: None. LYMPHATICS: None. PSYCHIATRY: History of depression, controlled. NEUROLOGICAL: None. PAST HISTORY: 1. Coronary artery disease with stent. 2. COPD. 3. GERD. 4. Hypertension. 5. Osteoarthritis. 6. Restless leg syndrome. 7. Depression. PAST SURGICAL HISTORY: 1. Cholecystectomy. 2. Cardiac cath with stent. 3. Hernia repair. 4. Hysterectomy. 5. Surgery on the left leg due to accident. 6. Four lipomas removed from the lower back. 7. Bunionectomy on left foot in August of 2013. SOCIAL HISTORY: Patient smokes 2 packs a day. Prior history of opiate abuse and rehab at [facility] in July of 2014. Patient has a legal guardian, Cece ( ). FAMILY HISTORY: Father at age 92. HOME MEDICATIONS: 1. Zoloft 50 mg a day. 2. Desyrel 100 mg at bedtime. 3. Atarax 25 mg p.o. q.6 p.r.n. 4. Norvasc 5 mg a day. 5. Aldactone 25 mg a day. 6. Remeron 15 mg p.o. at bedtime. 7. Mobic 7.5 p.o. at bedtime. 8. Claritin 5 mg q.12. 9. Lasix 40 mg p.o. daily. 10. Plavix 75 mg p.o. daily. 11. Aspirin 81 mg p.o. daily. ALLERGIES: 1. ERYTHROMYCIN. 2. LODINE. 3. DALMANE. 4. PENICILLIN. 5. TALWIN. 6. SECONAL. 7. SULFA. 8. OATMEAL. PHYSICAL EXAMINATION: VITAL SIGNS ON PRESENTATION: Temperature 98.6, pulse 72, respiration 18, blood pressure 132/78, pulse ox 96% on room air. GENERAL APPEARANCE: Thin build. Lying in bed. Awake. EYES: Pupils equal. Conjunctivae normal. HEENT: Oral cavity normal. NECK: JVD not raised. Mass not palpable. RESPIRATORY: Effort normal. LUNGS: Diminished breath sounds. CARDIOVASCULAR: First and second sounds normal. No edema. ABDOMEN: Soft, nontender. Liver and spleen not palpable. LYMPHATIC: No lymph node palpable in neck or axillae. PSYCHIATRY: Alert and oriented x3. Mood and affect normal. NEUROLOGICAL: Pupils equal. Cranial nerves grossly intact. Power and sensation grossly intact. INVESTIGATIONS: White count 9.2, hemoglobin 14.7, platelets 375. Potassium 4.1. BUN and creatinine are 10 and 0.8. Troponin x3 negative. LDL 90. EKG shows normal sinus rhythm. ASSESSMENT: 1. Left anterior chest wall pain, sharp in nature, more compatible with possible viral pleurisy in a patient with underlying coronary artery disease with stent. Need to rule out a cardiac cause. 2. Chronic obstructive pulmonary disease in a current smoker. 3. Chronic nicotine dependence. Patient is a smoker. 4. Gastroesophageal reflux disease. 5. Essential hypertension. 6. Primary osteoarthritis in multiple joints, bilateral. 7. Chronic restless leg syndrome. 8. Depression not otherwise specified. PLAN: Home medications are resumed. Cardiology was consulted, who ordered a stress test. Patient advised against smoking. She wants to continue with the same.
[2016-05-07] MEDS ORDERED: MIRTAZAPINE 15 MG TAB PO SCH (21:00)
[2016-05-07] MEDS ORDERED: traZODone HCL 100 MG TAB PO SCH (21:00)
--- NOTE | 2016-05-08 08:09 | DS ---
DATE OF ADMISSION: 05/06/2016 DATE OF DISCHARGE: 05/07/2016 FINAL DIAGNOSES: 1. Possible viral pleurisy. 2. Chronic obstructive pulmonary disease in a current smoker. 3. Coronary artery disease with prior history of stent. 4. Chronic nicotine dependence. Patient is a smoker. 5. Gastroesophageal reflux disease. 6. Essential hypertension. 7. Primary osteoarthritis of multiple joints, bilateral. 8. Chronic restless leg syndrome. 9. Depression, not otherwise specified. HOSPITAL COURSE: This patient presented with what appeared to be viral pleurisy. Given cardiac history, did have a dobutamine stress echocardiogram that came back to be negative. Patient advised against smoking. CONSULTATION: Dr. Nikkie Betancourt from cardiology. ON EXAM: LUNGS: Decreased breath sounds. CARDIOVASCULAR: First and second sounds normal. Troponins were negative. DISCHARGE MEDICATIONS: 1. Plavix 75 mg a day. 2. Norvasc 5 mg a day. 3. Aldactone 25 mg a day. 4. Aspirin 81 mg a day. 5. Lasix 40 mg a day. 6. Mobic 7.5 p.o. q.h.s. 7. Atarax 25 mg q.6 p.r.n. 8. Claritin 5 mg p.o. q.12. 9. Remeron 15 mg p.o. q.h.s. 10. Desyrel 100 mg p.o. q.h.s. 11. Zoloft 50 mg p.o. daily. 12. Nicotine patch. Follow up with Dr. Nunn in 3 days. Follow up with Cardiology.
--- NOTE | 2016-05-09 10:07 | ECHOF ---
Referral Reason:chest pain MEASUREMENTS -------- HEIGHT: 157.5 cm WEIGHT: 51.3 kg BP: 113/55 RVIDd: 2.9 cm (< 3.3) IVSd: 1.0 cm (0.6 - 1.1) LVIDd: 3.9 cm (3.9 - 5.3) LVPWd: 0.9 cm (0.6 - 1.1) IVSs: 1.4 cm LVIDs: 2.9 cm LVPWs: 1.2 cm LA Diam: 3.1 cm (2.7 - 3.8) LAESV Index (A-L): 20.53 ml/m Ao Diam: 2.2 cm (2.0 - 3.7) AV Cusp: 1.2 cm (1.5 - 2.6) LA Diam: 2.9 cm (2.7 - 3.8) MV EXCURSION: 12.451 mm (> 18.000) MV EF SLOPE: 91 mm/s (70 - 150) EPSS: 0.6 cm MV E Louie: 0.56 m/s MV DecT: 194 ms MV A Louie: 0.79 m/s MV E/A Ratio: 0.71 AR PHT: 1020 ms RAP: 5.00 mmHg RVSP: 30.57 mmHg FINDINGS -------- Sinus rhythm. This was a technically good study. Left ventricular wall thickness is normal. Overall left ventricular systolic function is low-normal with, an EF between 50 - 55 %. The right ventricle is normal in size. Normal LA size by volume 22+/-6 ml/m2. The right atrium is normal in size. Aneurysmal Interatrial septum. Aortic valve is trileaflet and is mildly thickened. There is mild aortic regurgitation. The mitral valve leaflets are mildly thickened. Mild mitral annular calcification present. Mild mitral regurgitation is present. [id number] tricuspid regurgitation present. Right ventricular systolic pressure is normal at < 35 mmHg. Trace/mild (physiologic) pulmonic regurgitation. The aortic root size is normal. Normal inferior vena cava with normal inspiratory collapse consistent with estimated right atrial pressure of 5 mmHg. There is no pericardial effusion. CONCLUSIONS -------- 1. Sinus rhythm. 2. There is mild aortic regurgitation. 3. The mitral valve leaflets are mildly thickened. 4. Mild mitral annular calcification present. 5. Mild mitral regurgitation is present. 6. [id number] tricuspid regurgitation present. 7. Right ventricular systolic pressure is normal at < 35 mmHg. 8. Trace/mild (physiologic) pulmonic regurgitation. 9. The aortic root size is normal. 10. Normal inferior vena cava with normal inspiratory collapse consistent with estimated right atrial pressure of 5 mmHg. 11. There is no pericardial effusion. 12. This was a technically good study. 13. Left ventricular wall thickness is normal. 14. Overall left ventricular systolic function is low-normal with, an EF between 50 - 55 %. 15. The right ventricle is normal in size. 16. Normal LA size by volume 22+/-6 ml/m2. 17. The right atrium is normal in size. 18. Aneurysmal Interatrial septum. 19. Aortic valve is trileaflet and is mildly thickened. ORDER SELECTOR: Kamron Hunt RDCS
== END 2016-05-07 16:06 | disposition home or self-care (01) ==
LOC: EC 20:40 → 3OBS 23:52
PROVIDERS: ADMIT Hospitalist; ATTEND Hospitalist
DX: R07.89 Other chest pain (principal); J44.1 Chronic obstructive pulmonary disease with (acute) exacerbation; F17.210 Nicotine dependence, cigarettes, uncomplicated; I25.10 Atherosclerotic heart disease of native coronary artery without angina pectoris; K21.9 Gastro-esophageal reflux disease without esophagitis; I10 Essential (primary) hypertension; M19.91 Primary osteoarthritis, unspecified site; G25.81 Restless legs syndrome; F32.9 Major depressive disorder, single episode, unspecified; E78.5 Hyperlipidemia, unspecified; Q82.8 Other specified congenital malformations of skin; M47.816 Spondylosis without myelopathy or radiculopathy, lumbar region; Z79.899 Other long term (current) drug therapy; Z79.82 Long term (current) use of aspirin; Z79.02 Long term (current) use of antithrombotics/antiplatelets; Z88.1 Allergy status to other antibiotic agents; Z88.5 Allergy status to narcotic agent; Z88.0 Allergy status to penicillin; Z88.2 Allergy status to sulfonamides; Z88.8 Allergy status to other drugs, medicaments and biological substances; Z91.018 Allergy to other foods; Z86.14 Personal history of Methicillin resistant Staphylococcus aureus infection; Z95.5 Presence of coronary angioplasty implant and graft; Z82.5 Family history of asthma and other chronic lower respiratory diseases
CPT/HCPCS: 99291; 96375 ×2; 96374; 96361 ×4; 36415; 93005; 93017; 93306; 93350; 85379; 83880; 80061; 80053; 82550 ×2; 82553 ×2; 83735; 84484 ×2; 85025; 85610; 85730 ×2; 71020; G0378 ×2; J1250; J2270; J1644 ×2; 96376

== ENCOUNTER 2016-05-15 18:56 | Emergency (ER) | payer MEDICARE ==
[2016-05-15 19:08] VITALS: RESP 18
--- NOTE | 2016-05-15 19:53 | ED ---
General Adult HPI - General Chief complaint: Chest Pain Stated complaint: Chest Pain Time Seen by Provider: 05/15/16 18:56 Source: EMS, RN notes reviewed, old records reviewed Mode of arrival: EMS Limitations: no limitations - History of Present Illness Initial comments: This is a 65-year-old female here for evaluation of chest pain. Patient will this establishment for psychiatric disease, patient coming in with history of stents and coronary artery disease, patient states she was here about a week and half ago for similar pain. Patient states pain is anterior with no radiation or shortness of breath just and uncomfortable. No fevers cough or congestion no travel history. Patient denies modifying factors patient has history of COPD hypertension and coronary artery disease, remote history of smoking - Related Data Home Medications Medication Instructions Recorded Confirmed amLODIPine [Norvasc] 5 mg PO DAILY 09/22/15 05/15/16 Spironolactone [Aldactone] 25 mg PO DAILY 12/12/15 05/15/16 Aspirin EC [Ecotrin Low Dose] 81 mg PO DAILY 04/18/16 05/15/16 Furosemide [Lasix] 40 mg PO DAILY 04/18/16 05/15/16 Meloxicam [Mobic] 7.5 mg PO HS 04/18/16 05/15/16 hydrOXYzine HCL [Atarax] 25 mg PO Q6H PRN 04/18/16 05/15/16 Sertraline [Zoloft] 50 mg PO DAILY 05/06/16 05/15/16 Previous Rx's Medication Instructions Recorded Clopidogrel [Plavix] 75 mg PO DAILY #14 tab 12/02/14 Loratadine [Claritin] 5 mg PO Q12HR #30 tab 04/23/16 Mirtazapine [Remeron] 15 mg PO HS #30 tab 04/23/16 traZODone HCL [Desyrel] 100 mg PO HS 30 Days 04/23/16 Allergies Allergy/AdvReac Type Severity Reaction Status Date / Time erythromycin base Allergy Rash/Hives Verified 05/15/16 19:18 [Erythromycin Base] etodolac [From Lodine] Allergy Rash/Hives Verified 05/15/16 19:18 flurazepam [From Dalmane] Allergy Rash/Hives Verified 05/15/16 19:18 Penicillins Allergy Rash/Hives Verified 05/15/16 19:18 pentazocine lactate Allergy Rash/Hives Verified 05/15/16 19:18 [From Talwin] secobarbital sodium Allergy Rash/Hives Verified 05/15/16 19:18 [From Seconal] Sulfa (Sulfonamide Allergy Rash/Hives Verified 05/15/16 19:18 Antibiotics) oatmeal Allergy Rash/Hives Uncoded 05/06/16 20:50 Review of Systems ROS Statement: Those systems with pertinent positive or pertinent negative responses have been documented in the HPI. ROS Other: All systems not noted in ROS Statement are negative. Past Medical History Past Medical History: Coronary Artery Disease (CAD), COPD, Dementia, GERD/Reflux , Hypertension, Musculoskeletal Disorder Additional Past Medical History / Comment(s): Darier Disease, MS, RLS, bilateral legs cramp when walking long distances, UTI, DJD lumbar spine, pancreatitis, pt denies dementia-it is in old hx however. History of Any Multi-Drug Resistant Organisms: MRSA Date of last positivie culture/infection: 09/05/2012 MDRO Source:: Urine Past Surgical History: Cholecystectomy, Heart Catheterization With Stent, Hernia Repair, Hysterectomy, Orthopedic Surgery Additional Past Surgical History / Comment(s): surgeries on left leg due to accident; Four lipomas removed from lower back; bunionectomy on left foot in August 2013, states, bowel prolapsed and they put back in place, picc line for ABX tx for MRSA 2012-since removed. Past Anesthesia/Blood Transfusion Reactions: No Reported Reaction Additional Past Anesthesia/Blood Transfusion Reaction / Comment(s): . Date of Last Stent Placement:: 2011 Past Psychological History: Depression Additional Psychological History / Comment(s): She is independent. reports having a Legal Gaurdian. She uses no assistive device. She does not drive. patient denies depression but found in old history Smoking Status: Current every day smoker Past Alcohol Use History: None Reported Additional Past Alcohol Use History / Comment(s): . Past Drug Use History: None Reported - Past Family History Father Family Medical History: No Reported History Additional Family Medical History / Comment(s): father at age 92 yrs. Mother Family Medical History: COPD Additional Family Medical History / Comment(s): Mother at age 62yrs. General Exam Limitations: no limitations General appearance: alert, in no apparent distress Head exam: Present: atraumatic, normocephalic, normal inspection Eye exam: Present: normal appearance, PERRL, EOMI. Absent: scleral icterus, conjunctival injection, periorbital swelling ENT exam: Present: normal exam, mucous membranes moist Neck exam: Present: normal inspection. Absent: tenderness, meningismus, lymphadenopathy Respiratory exam: Present: normal lung sounds bilaterally. Absent: respiratory distress, wheezes, rales, rhonchi, stridor Cardiovascular Exam: Present: regular rate, normal rhythm, normal heart sounds. Absent: systolic murmur, diastolic murmur, rubs, gallop, clicks GI/Abdominal exam: Present: soft, normal bowel sounds. Absent: distended, tenderness, guarding, rebound, rigid Extremities exam: Present: normal inspection, full ROM, normal capillary refill. Absent: tenderness, pedal edema, joint swelling, calf tenderness Back exam: Present: normal inspection Neurological exam: Present: alert, oriented X3, CN II-XII intact Psychiatric exam: Present: normal affect, normal mood Skin exam: Present: warm, dry, intact, normal color. Absent: rash Course Vital Signs 05/15/16 05/15/16 18:59 20:49 Temperature 97.6 F Pulse Rate 87 78 Respiratory 18 18 Rate Blood Pressure 114/67 110/64 O2 Sat by Pulse 97 99 Oximetry - Reevaluation(s) Reevaluation #1: 05/15/16 19:53 Prior ER visit regard chest pain is reviewed 05/15/16 19:54 Patient did have stress test on the th, one week ago which was negative EKG Findings - EKG Comments: EKG Findings:: EKG shows normal sinus or mastoid 4, ME 150, QRS 80, QTC 426, no ST elevation Medical Decision Making - Medical Decision Making 58 female here with known heart disease, recent cardiac admission for chest pain , negative stress test, patient is troponin negative. Emergency room. EKG is normal patient will be discharged - Lab Data Result diagrams: 05/15/16 20:21 05/15/16 20:21 Lab Results 05/15/16 05/15/16 05/15/16 Range/Units 20:21 20:21 20:21 WBC 10.6 (3.8-10.6) k/uL RBC 4.77 (3.80-5.40) m/uL Hgb 15.0 (11.4-16.0) gm/dL Hct 45.7 (34.0-46.0) % MCV 95.6 (80.0-100.0) fL MCH 31.4 (25.0-35.0) pg MCHC 32.9 (31.0-37.0) g/dL RDW 12.5 (11.5-15.5) % Plt Count 443 (150-450) k/uL Neutrophils % 75 % Lymphocytes % 14 % Monocytes % 8 % Eosinophils % 1 % Basophils % 1 % Neutrophils # 7.9 H (1.3-7.7) k/uL Lymphocytes # 1.5 (1.0-4.8) k/uL Monocytes # 0.8 (0-1.0) k/uL Eosinophils # 0.1 (0-0.7) k/uL Basophils # 0.1 (0-0.2) k/uL PT (9.0-12.0) sec INR (<1.1) APTT (22.0-30.0) sec Sodium 138 (137-145) mmol/L Potassium 3.3 L (3.5-5.1) mmol/L Chloride 98 (98-107) mmol/L Carbon Dioxide 26 (22-30) mmol/L Anion Gap 14 mmol/L BUN 10 (7-17) mg/dL Creatinine 1.04 (0.52-1.04) mg/dL Est GFR (MDRD) Af Amer >60 (>60 ml/min/1.73 sqM) Est GFR (MDRD) Non-Af 53 (>60 ml/min/1.73 sqM) Glucose 92 (74-99) mg/dL Calcium 10.1 (8.4-10.2) mg/dL Magnesium 1.7 (1.6-2.3) mg/dL Total Bilirubin 0.8 (0.2-1.3) mg/dL AST 29 (14-36) U/L ALT 19 (9-52) U/L Alkaline Phosphatase 105 (38-126) U/L Total Creatine Kinase 77 (30-135) U/L CK-MB (CK-2) 0.8 (0.0-2.4) ng/mL CK-MB (CK-2) Rel Index 1.0 Troponin I <0.012 (0.000-0.034) ng/mL NT-Pro-B Natriuret Pep pg/mL Total Protein 8.6 H (6.3-8.2) g/dL Albumin 4.7 (3.5-5.0) g/dL Lipase 436 H (23-300) U/L 05/15/16 05/15/16 Range/Units 20:21 20:21 WBC (3.8-10.6) k/uL RBC (3.80-5.40) m/uL Hgb (11.4-16.0) gm/dL Hct (34.0-46.0) % MCV (80.0-100.0) fL MCH (25.0-35.0) pg MCHC (31.0-37.0) g/dL RDW (11.5-15.5) % Plt Count (150-450) k/uL Neutrophils % % Lymphocytes % % Monocytes % % Eosinophils % % Basophils % % Neutrophils # (1.3-7.7) k/uL Lymphocytes # (1.0-4.8) k/uL Monocytes # (0-1.0) k/uL Eosinophils # (0-0.7) k/uL Basophils # (0-0.2) k/uL PT 11.0 (9.0-12.0) sec INR 1.1 (<1.1) APTT 25.3 (22.0-30.0) sec Sodium (137-145) mmol/L Potassium (3.5-5.1) mmol/L Chloride (98-107) mmol/L Carbon Dioxide (22-30) mmol/L Anion Gap mmol/L BUN (7-17) mg/dL Creatinine (0.52-1.04) mg/dL Est GFR (MDRD) Af Amer (>60 ml/min/1.73 sqM) Est GFR (MDRD) Non-Af (>60 ml/min/1.73 sqM) Glucose (74-99) mg/dL Calcium (8.4-10.2) mg/dL Magnesium (1.6-2.3) mg/dL Total Bilirubin (0.2-1.3) mg/dL AST (14-36) U/L ALT (9-52) U/L Alkaline Phosphatase (38-126) U/L Total Creatine Kinase (30-135) U/L CK-MB (CK-2) (0.0-2.4) ng/mL CK-MB (CK-2) Rel Index Troponin I (0.000-0.034) ng/mL NT-Pro-B Natriuret Pep 208 pg/mL Total Protein (6.3-8.2) g/dL Albumin (3.5-5.0) g/dL Lipase (23-300) U/L - Radiology Data Radiology results: report reviewed (Chest x-ray is negative for acute disease), image reviewed Disposition Clinical Impression: Atypical chest pain, Chest pain Disposition: HOME SELF-CARE Condition: Good Instructions: Chest Pain (ED) Referrals: Micky Nunn MD [Primary Care Provider] - 1-2 days
--- NOTE | 2016-05-15 20:08 | XR ---
EXAMINATION TYPE: XR chest 2V DATE OF EXAM: 05/15/2016 8:01 PM COMPARISON: EXAMINATION TYPE: XR chest 2V DATE OF EXAM: 05/15/2016 8:01 PM COMPARISON: 05/06/2016 HISTORY: Chest pain TECHNIQUE: Frontal and lateral views of the chest are obtained. FINDINGS: Heart is normal. Lungs are clear. There is no pleural effusion. There are no hilar masses. Thoracic aorta is atheromatous. There are chest leads. Bones are osteopenic. There is 20% anterior w edging of T12. IMPRESSION: No active cardiopulmonary disease. No change compared to old exam. HISTORY: TECHNIQUE: Frontal and lateral views of the chest are obtained. FINDINGS: There is no focal air space opacity, pleural effusion, or pneumothorax seen. The cardiac silhouette size is within normal limits. The osseous structures are intact. IMPRESSION: No acute cardiopulmonary process.
[2016-05-15 20:46] LABS: Basophils # (A) 0.1 k/uL (0-0.2); Basophils % (A) 1 %; CH 31.9; CHCM 33.5; Eosinophils # (A) 0.1 k/uL (0-0.7); Eosinophils % (A) 1 %; HCT 45.7 % (34.0-46.0); HDW 2.26; Luc # (Auto) 0.23; Luc % (Auto) 2; Lymphocytes # (A) 1.5 k/uL (1.0-4.8); Lymphocytes % (A) 14 %; MCH 31.4 pg (25.0-35.0); MCHC 32.9 g/dL (31.0-37.0); MCV 95.6 fL (80.0-100.0); Mean Platelet Volume 7.6; Monocytes # (A) 0.8 k/uL (0-1.0); Monocytes % (A) 8 %; Neutrophils # (A) 7.9 k/uL (1.3-7.7); Neutrophils % (A) 75 %; RBC 4.77 m/uL (3.80-5.40); RDW 12.5 % (11.5-15.5); WBC 10.6 k/uL (3.8-10.6)
[2016-05-15 20:51] LABS: INR 1.1 (<1.1); Partial Thromboplastin Time 25.3 sec (22.0-30.0)
[2016-05-15 21:01] LABS: ALT 19 U/L (9-52); AST 29 U/L (14-36); Alkaline Phosphatase 105 U/L (38-126); Anion Gap 14 mmol/L; Blood Urea Nitrogen 10 mg/dL (7-17); Calcium 10.1 mg/dL (8.4-10.2); Carbon Dioxide 26 mmol/L (22-30); Chloride 98 mmol/L (98-107); Glucose 92 mg/dL (74-99); Magnesium 1.7 mg/dL (1.6-2.3); Non-African American GFR(MDRD) 53 (>60 ml/min/1.73 sqM); Potassium 3.3 mmol/L (3.5-5.1); Sodium 138 mmol/L (137-145); Total Bilirubin 0.8 mg/dL (0.2-1.3); Total Protein 8.6 g/dL (6.3-8.2)
[2016-05-15 21:04] LABS: Creatine Kinase 77 U/L (30-135)
[2016-05-15 21:17] LABS: Creatine Kinase MB 0.8 ng/mL (0.0-2.4); Troponin I <0.012 ng/mL (0.000-0.034)
[2016-05-15 21:53] VITALS: BP 125/73; PULSE 77; TEMP 98.6
== END 2016-05-15 21:53 | disposition home or self-care (01) ==
LOC: EC 18:56
DX: R07.89 Other chest pain (principal); Z95.5 Presence of coronary angioplasty implant and graft; I10 Essential (primary) hypertension; F03.90 Unspecified dementia, unspecified severity, without behavioral disturbance, psychotic disturbance, mood disturbance, and anxiety; I25.10 Atherosclerotic heart disease of native coronary artery without angina pectoris; G35 Multiple sclerosis; F32.9 Major depressive disorder, single episode, unspecified; F17.200 Nicotine dependence, unspecified, uncomplicated; Z79.82 Long term (current) use of aspirin; Z79.02 Long term (current) use of antithrombotics/antiplatelets; Z79.1 Long term (current) use of non-steroidal anti-inflammatories (NSAID); Z79.899 Other long term (current) drug therapy; Z88.0 Allergy status to penicillin; Z88.1 Allergy status to other antibiotic agents; Z88.2 Allergy status to sulfonamides; Z88.6 Allergy status to analgesic agent; Z88.8 Allergy status to other drugs, medicaments and biological substances
CPT/HCPCS: 36415; 71020; 80053; 82550; 82553; 83690; 83735; 83880; 84484; 85025; 85610; 85730; 93005; 99285

== ENCOUNTER 2016-05-16 17:44 | Observation (INO) | payer MEDICARE ==
[2016-05-16 17:52] VITALS: RESP 16
[2016-05-16 18:25] LABS: Basophils # (A) 0.1 k/uL (0-0.2); Basophils % (A) 1 %; CH 32.1; CHCM 33.7; Eosinophils # (A) 0.2 k/uL (0-0.7); Eosinophils % (A) 2 %; HCT 43.5 % (34.0-46.0); HDW 2.25; HGB 14.2 gm/dL (11.4-16.0); Luc # (Auto) 0.18; Luc % (Auto) 2; Lymphocytes # (A) 1.3 k/uL (1.0-4.8); Lymphocytes % (A) 14 %; MCH 31.3 pg (25.0-35.0); MCHC 32.7 g/dL (31.0-37.0); MCV 95.7 fL (80.0-100.0); Mean Platelet Volume 7.5; Monocytes # (A) 0.7 k/uL (0-1.0); Monocytes % (A) 7 %; Neutrophils % (A) 75 %; RBC 4.55 m/uL (3.80-5.40); RDW 12.5 % (11.5-15.5); WBC 9.4 k/uL (3.8-10.6); WBC (Perox) 9.63
[2016-05-16 18:28] LABS: INR 1.2 (<1.1); Prothrombin Time 11.6 sec (9.0-12.0)
[2016-05-16 18:32] LABS: ALT 20 U/L (9-52); AST 26 U/L (14-36); Acetaminophen <10.0 ug/mL; Alcohol <10 mg/dL; Alkaline Phosphatase 91 U/L (38-126); Amylase 178 U/L (30-110); Anion Gap 15 mmol/L; Blood Urea Nitrogen 13 mg/dL (7-17); Calcium 9.4 mg/dL (8.4-10.2); Carbon Dioxide 23 mmol/L (22-30); Chloride 100 mmol/L (98-107); Glucose 140 mg/dL (74-99); Non-African American GFR(MDRD) 45 (>60 ml/min/1.73 sqM); Salicylate <1.0 mg/dL; Sodium 138 mmol/L (137-145); Total Bilirubin 0.5 mg/dL (0.2-1.3); Total Protein 7.4 g/dL (6.3-8.2)
[2016-05-16] MEDS ORDERED: SODIUM CHLORIDE 0.9% 1,000 ML IV STA ×3 (19:00→19:44)
--- NOTE | 2016-05-16 19:33 | ED ---
Overdose HPI - General Chief Complaint: Overdose Stated Complaint: Overdose Time Seen by Provider: 05/16/16 17:44 Source: patient, EMS, RN notes reviewed Mode of arrival: EMS Limitations: no limitations - History of Present Illness Initial Comments: This is a 65-year-old female was brought in by EMS after sustaining as she took multiple of her medications approximately 30-45 minutes prior to arrival because she did want live anymore. She gives multiple reasons why she did nothing particularly concrete. She denies any alcohol denies any fevers chills nausea vomiting sweats or other symptoms at this time. Complaint: intentional overdose - Related Data Home Medications Medication Instructions Recorded Confirmed amLODIPine [Norvasc] 5 mg PO DAILY 09/22/15 05/16/16 Spironolactone [Aldactone] 25 mg PO DAILY 12/12/15 05/16/16 Aspirin EC [Ecotrin Low Dose] 81 mg PO DAILY 04/18/16 05/16/16 Furosemide [Lasix] 40 mg PO DAILY 04/18/16 05/16/16 Meloxicam [Mobic] 7.5 mg PO HS 04/18/16 05/16/16 hydrOXYzine HCL [Atarax] 25 mg PO Q6H PRN 04/18/16 05/16/16 Sertraline [Zoloft] 50 mg PO DAILY 05/06/16 05/16/16 Previous Rx's Medication Instructions Recorded Clopidogrel [Plavix] 75 mg PO DAILY #14 tab 12/02/14 Loratadine [Claritin] 5 mg PO Q12HR #30 tab 04/23/16 Mirtazapine [Remeron] 15 mg PO HS #30 tab 04/23/16 traZODone HCL [Desyrel] 100 mg PO HS 30 Days 04/23/16 Allergies Allergy/AdvReac Type Severity Reaction Status Date / Time erythromycin base Allergy Rash/Hives Verified 05/16/16 18:41 [Erythromycin Base] etodolac [From Lodine] Allergy Rash/Hives Verified 05/16/16 18:41 flurazepam [From Dalmane] Allergy Rash/Hives Verified 05/16/16 18:41 Penicillins Allergy Rash/Hives Verified 05/16/16 18:41 pentazocine lactate Allergy Rash/Hives Verified 05/16/16 18:41 [From Talwin] secobarbital sodium Allergy Rash/Hives Verified 05/16/16 18:41 [From Seconal] Sulfa (Sulfonamide Allergy Rash/Hives Verified 05/16/16 18:41 Antibiotics) oatmeal Allergy Rash/Hives Uncoded 05/16/16 17:52 Review of Systems ROS Statement: Those systems with pertinent positive or pertinent negative responses have been documented in the HPI. ROS Other: All systems not noted in ROS Statement are negative. Past Medical History Past Medical History: Coronary Artery Disease (CAD), COPD, Dementia, GERD/Reflux , Hypertension, Musculoskeletal Disorder Additional Past Medical History / Comment(s): Darier Disease, MS, RLS, bilateral legs cramp when walking long distances, UTI, DJD lumbar spine, pancreatitis, pt denies dementia-it is in old hx however. History of Any Multi-Drug Resistant Organisms: MRSA Date of last positivie culture/infection: 09/05/2012 MDRO Source:: Urine Past Surgical History: Cholecystectomy, Heart Catheterization With Stent, Hernia Repair, Hysterectomy, Orthopedic Surgery Additional Past Surgical History / Comment(s): surgeries on left leg due to accident; Four lipomas removed from lower back; bunionectomy on left foot in August 2013, states, bowel prolapsed and they put back in place, picc line for ABX tx for MRSA 2012-since removed. Past Anesthesia/Blood Transfusion Reactions: No Reported Reaction Additional Past Anesthesia/Blood Transfusion Reaction / Comment(s): . Date of Last Stent Placement:: 2011 Past Psychological History: Depression Additional Psychological History / Comment(s): She is independent. reports having a Legal Gaurdian. She uses no assistive device. She does not drive. patient denies depression but found in old history Smoking Status: Current every day smoker Past Alcohol Use History: None Reported Additional Past Alcohol Use History / Comment(s): . Past Drug Use History: None Reported - Past Family History Father Family Medical History: No Reported History Additional Family Medical History / Comment(s): father at age 92 yrs. Mother Family Medical History: COPD Additional Family Medical History / Comment(s): Mother at age 62yrs. General Exam - General Exam Comments Initial Comments: This is a well-developed well-nourished awake alert oriented 3 female she is anxious Limitations: no limitations General appearance: alert, in no apparent distress Head exam: Present: atraumatic, normocephalic, normal inspection Eye exam: Present: normal appearance, PERRL, EOMI. Absent: scleral icterus, conjunctival injection, periorbital swelling ENT exam: Present: normal exam, mucous membranes moist Neck exam: Present: normal inspection. Absent: tenderness, meningismus, lymphadenopathy Respiratory exam: Present: normal lung sounds bilaterally. Absent: respiratory distress, wheezes, rales, rhonchi, stridor Cardiovascular Exam: Present: regular rate, normal rhythm, normal heart sounds. Absent: systolic murmur, diastolic murmur, rubs, gallop, clicks GI/Abdominal exam: Present: soft, normal bowel sounds. Absent: distended, tenderness, guarding, rebound, rigid Extremities exam: Present: normal inspection, full ROM, normal capillary refill. Absent: tenderness, pedal edema, joint swelling, calf tenderness Back exam: Present: normal inspection Neurological exam: Present: alert, oriented X3, CN II-XII intact Psychiatric exam: Present: depressed, anxious, flat affect, suicidal ideation Skin exam: Present: warm, dry, intact, normal color. Absent: rash Course Vital Signs 05/16/16 17:50 Temperature 97.4 F L Pulse Rate 63 Respiratory 16 Rate Blood Pressure 132/85 O2 Sat by Pulse 98 Oximetry Medical Decision Making - Medical Decision Making I did discuss the findings with the hospitalist patient will be admitted for evaluation of pancreatitis hypokalemia and suicidal thoughts. - Lab Data Result diagrams: 05/16/16 18:05 05/16/16 18:05 Lab Results 05/16/16 05/16/16 05/16/16 Range/Units 18:05 18:05 18:05 WBC 9.4 (3.8-10.6) k/uL RBC 4.55 (3.80-5.40) m/uL Hgb 14.2 (11.4-16.0) gm/dL Hct 43.5 (34.0-46.0) % MCV 95.7 (80.0-100.0) fL MCH 31.3 (25.0-35.0) pg MCHC 32.7 (31.0-37.0) g/dL RDW 12.5 (11.5-15.5) % Plt Count 408 (150-450) k/uL Neutrophils % 75 % Lymphocytes % 14 % Monocytes % 7 % Eosinophils % 2 % Basophils % 1 % Neutrophils # 7.0 (1.3-7.7) k/uL Lymphocytes # 1.3 (1.0-4.8) k/uL Monocytes # 0.7 (0-1.0) k/uL Eosinophils # 0.2 (0-0.7) k/uL Basophils # 0.1 (0-0.2) k/uL PT 11.6 (9.0-12.0) sec INR 1.2 (<1.1) Sodium 138 (137-145) mmol/L Potassium 3.0 L* (3.5-5.1) mmol/L Chloride 100 (98-107) mmol/L Carbon Dioxide 23 (22-30) mmol/L Anion Gap 15 mmol/L BUN 13 (7-17) mg/dL Creatinine 1.20 H (0.52-1.04) mg/dL Est GFR (MDRD) Af Amer 54 (>60 ml/min/1.73 sqM) Est GFR (MDRD) Non-Af 45 (>60 ml/min/1.73 sqM) Glucose 140 H (74-99) mg/dL Calcium 9.4 (8.4-10.2) mg/dL Total Bilirubin 0.5 (0.2-1.3) mg/dL AST 26 (14-36) U/L ALT 20 (9-52) U/L Alkaline Phosphatase 91 (38-126) U/L Total Protein 7.4 (6.3-8.2) g/dL Albumin 4.1 (3.5-5.0) g/dL Amylase 178 H (30-110) U/L Lipase 752 H (23-300) U/L Salicylates <1.0 mg/dL Urine Opiates Screen (NotDetected) Ur Oxycodone Screen (NotDetected) Urine Methadone Screen (NotDetected) Ur Propoxyphene Screen (NotDetected) Acetaminophen <10.0 ug/mL Ur Barbiturates Screen (NotDetected) U Tricyclic Antidepress (NotDetected) Ur Phencyclidine Scrn (NotDetected) Ur Amphetamines Screen (NotDetected) U Methamphetamines Scrn (NotDetected) U Benzodiazepines Scrn (NotDetected) Urine Cocaine Screen (NotDetected) U Marijuana (THC) Screen (NotDetected) Serum Alcohol <10 mg/dL 05/16/16 Range/Units 18:32 WBC (3.8-10.6) k/uL RBC (3.80-5.40) m/uL Hgb (11.4-16.0) gm/dL Hct (34.0-46.0) % MCV (80.0-100.0) fL MCH (25.0-35.0) pg MCHC (31.0-37.0) g/dL RDW (11.5-15.5) % Plt Count (150-450) k/uL Neutrophils % % Lymphocytes % % Monocytes % % Eosinophils % % Basophils % % Neutrophils # (1.3-7.7) k/uL Lymphocytes # (1.0-4.8) k/uL Monocytes # (0-1.0) k/uL Eosinophils # (0-0.7) k/uL Basophils # (0-0.2) k/uL PT (9.0-12.0) sec INR (<1.1) Sodium (137-145) mmol/L Potassium (3.5-5.1) mmol/L Chloride (98-107) mmol/L Carbon Dioxide (22-30) mmol/L Anion Gap mmol/L BUN (7-17) mg/dL Creatinine (0.52-1.04) mg/dL Est GFR (MDRD) Af Amer (>60 ml/min/1.73 sqM) Est GFR (MDRD) Non-Af (>60 ml/min/1.73 sqM) Glucose (74-99) mg/dL Calcium (8.4-10.2) mg/dL Total Bilirubin (0.2-1.3) mg/dL AST (14-36) U/L ALT (9-52) U/L Alkaline Phosphatase (38-126) U/L Total Protein (6.3-8.2) g/dL Albumin (3.5-5.0) g/dL Amylase (30-110) U/L Lipase (23-300) U/L Salicylates mg/dL Urine Opiates Screen Not Detected (NotDetected) Ur Oxycodone Screen Not Detected (NotDetected) Urine Methadone Screen Not Detected (NotDetected) Ur Propoxyphene Screen Not Detected (NotDetected) Acetaminophen ug/mL Ur Barbiturates Screen Not Detected (NotDetected) U Tricyclic Antidepress Not Detected (NotDetected) Ur Phencyclidine Scrn Not Detected (NotDetected) Ur Amphetamines Screen Not Detected (NotDetected) U Methamphetamines Scrn Not Detected (NotDetected) U Benzodiazepines Scrn Not Detected (NotDetected) Urine Cocaine Screen Not Detected (NotDetected) U Marijuana (THC) Screen Not Detected (NotDetected) Serum Alcohol mg/dL - EKG Data -: EKG Interpreted by Or EKG shows normal: sinus rhythm (EKG shows normal sinus rhythm of 83. Arrival 124 QRS duration 80 daily since QTC of 382/[address]-T wave changes. Some artifact is present) Disposition Clinical Impression: Drug overdose, intentional, Suicidal ideation, Pancreatitis, Hypokalemia Disposition: ADMITTED IP TO THIS [facility] Condition: Stable
[2016-05-16] MEDS ORDERED: NALOXONE 0.4 MG/ML 1 ML VIAL IV PRN (19:38)
[2016-05-16] MEDS ORDERED: NICOTINE 21MG/24HR PATCH TRANSDERM STA (19:41)
[2016-05-16] MEDS ORDERED: 0.9% NACL WITH KCL 20 MEQ/L 1,000 ML IV SCH (19:45)
[2016-05-16 20:16] LABS: Magnesium 1.5 mg/dL (1.6-2.3)
[2016-05-16] MEDS ORDERED: POTASSIUM CHLORIDE ER 20 MEQ TAB.ER PO STA (20:21)
[2016-05-16] MEDS: hydrOXYzine HCL 25 MG TAB PO SCH (21:39)
[2016-05-16] MEDS: POTASSIUM CHLORIDE 20 MEQ, LIDOCAINE 2% INJ 20 MG in SODIUM CHLORIDE 0.9% 100 ML IVPB SCH (21:40)
[2016-05-16 23:06] LABS: Glucose,Whole Blood 114 mg/dL (75-99)
[2016-05-17] MEDS: POTASSIUM CHLORIDE 20 MEQ, LIDOCAINE 2% INJ 20 MG in SODIUM CHLORIDE 0.9% 100 ML IVPB SCH (00:39)
[2016-05-17 07:08] LABS: Glucose,Whole Blood 92 mg/dL (75-99)
[2016-05-17] MEDS: hydrOXYzine HCL 25 MG TAB PO SCH ×2 (08:43→17:17)
[2016-05-17 09:03] LABS: Magnesium 1.8 mg/dL (1.6-2.3); Potassium 4.2 mmol/L (3.5-5.1)
[2016-05-17] MEDS ORDERED: CLOPIDOGREL 75 MG TAB PO SCH (09:45)
[2016-05-17] MEDS ORDERED: SERTRALINE 50 MG TAB PO SCH (09:45)
[2016-05-17] MEDS ORDERED: LORATADINE 10 MG TAB PO SCH (09:45)
[2016-05-17] MEDS ORDERED: FUROSEMIDE 40 MG TAB PO SCH (09:45)
[2016-05-17] MEDS ORDERED: ASPIRIN 81 MG CHEW PO SCH (09:45)
[2016-05-17] MEDS ORDERED: amLODIPine 5 MG TAB PO SCH (09:45)
[2016-05-17] MEDS ORDERED: SPIRONOLACTONE 25 MG TAB PO SCH (09:45)
[2016-05-17 11:01] VITALS: BMI 19.8
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
[2016-05-17 11:28] VITALS: BP 84/62; PULSE 72; TEMP 98.2
[2016-05-17 11:52] LABS: Glucose,Whole Blood 104 mg/dL (75-99)
[2016-05-17] MEDS ORDERED: traZODone HCL 100 MG TAB PO SCH (21:00)
[2016-05-17] MEDS ORDERED: MELOXICAM 7.5 MG TAB PO SCH (21:00)
[2016-05-17] MEDS ORDERED: MIRTAZAPINE 15 MG TAB PO SCH (21:00)
--- NOTE | 2016-05-18 08:47 | HP ---
DATE OF ADMISSION: 05/16/2016 PRESENTING COMPLAINT: Overdose. HISTORY OF PRESENTING COMPLAINT: This is a 65-year-old patient with rather extensive medical history who follows with Visiting Physician, Dr. Nunn. Patient's chronic stable medical conditions include COPD, GERD, hyperlipidemia, osteoarthritis, remote history of MS, restless leg syndrome, depression. Patient has a legal guardian, Cece. 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 Patient learned yesterday that her son may be implicated in the murder of his and decided to take a whole bunch of pills. Not attempt to kill herself, but just to sleep. Hence, she was admitted. This morning when I saw the patient, patient is more awake and said she had no intention of killing herself, just wanted to go to sleep and was really sad about her son's situation. REVIEW OF SYSTEMS: CONSTITUTIONAL: Tired. HEENT: None. RESPIRATORY: None. CARDIOVASCULAR: None. GASTROINTESTINAL: Heartburn. GENITOURINARY: None. MUSCULOSKELETAL: Aches and pains in different joints. DERMATOLOGICAL: Chronic skin changes. HEMATOLOGIC: None. LYMPHATICS: None. PSYCHIATRY: Depression, anxiety. NEUROLOGICAL: None. Past medical history of coronary artery disease with stent, COPD, GERD, hypertension, osteoarthritis, restless leg syndrome, depression, Darier disease. PAST SURGICAL HISTORY: Cholecystectomy, cardiac cath with stent, hernia repair, hysterectomy, surgeries to left leg accident, lipomas removed from lower back, bunionectomy on left foot in August 2013. SOCIAL HISTORY: Smokes about 2 packs a day. History of opiate abuse in the past back in 2014. Patient has legal guardian, Cece. FAMILY HISTORY: Father at age 92. HOME MEDICATIONS: 1. Desyrel 100 mg q.h.s. 2. Atarax 25 mg q.6 p.r.n. 3. Norvasc 5 mg p.o. daily. 4. Aldactone 25 mg p.o. daily. 5. Zoloft 50 mg p.o. daily. 6. Remeron 50 mg p.o. q.h.s. 7. Mobic 7.5 p.o. q.h.s. 8. Claritin 5 mg p.o. daily. 9. Lasix 40 mg p.o. daily. 10. Plavix 75 mg p.o. daily. 11. Aspirin 81 mg p.o. daily. ALLERGIES TO ERYTHROMYCIN, ETODOLAC, PENICILLIN, TALWIN, SECOBARBITAL, SULFUR, BLEACH, OATMEAL. On examination, temperature 97.7, pulse 73, respirations 16, blood pressure 93/62, pulse ox 93% on room air. GENERAL APPEARANCE: Average build, sitting up, somewhat anxious -appearing. EYES: Pupils equal. Conjunctivae normal. HEENT: Oral cavity normal. NECK: JVD not raised. Mass not palpable. RESPIRATORY: Effort normal. Lungs with very slightly decreased breath sounds. CARDIOVASCULAR: First and second sounds normal. No edema. ABDOMEN: Soft, nontender. Liver and spleen not palpable. LYMPHATIC: No lymph node palpable in the neck or axillae. PSYCHIATRY: Alert and oriented x3. Mood was slightly anxious appearing. DERMATOLOGICAL: Diffuse rash all over the body with some hyperpigmentation and some areas of superficial bleeding from scratching present on the torso and the back. INVESTIGATIONS: White count 9.1, hemoglobin 14.2, potassium 3.0. BUN 30, creatinine 1.2. Lipase 752, amylase 178. ASSESSMENT: 1. Acute overdose of medications about 45 minutes before coming to the emergency room with no intention of killing herself. 2. Chronic obstructive pulmonary disease in a current smoker. 3. Coronary artery disease with prior history of stent. 4. Chronic nicotine dependence. Patient active cigarette smoker. 5. Essential hypertension. 6. Primary osteoarthritis of multiple joints, bilateral. 7. Chronic restless leg syndrome. 8. Depression, not otherwise specified. 9. Darier disease causing persistent severe itching. PLAN: Psychiatry was consulted. Home meds will be resumed. Close eye will be kept with the patient depending on how she does. Patient feeling silly about what she did. Also advised against smoking. She is quite alarm about the fact how much money she spends on smoking after I did some calculations for her.
--- NOTE | 2016-05-19 13:47 | DS ---
DATE OF ADMISSION: 05/16/2016 DATE OF DISCHARGE: 05/17/2016 FINAL DIAGNOSES: 1. Acute overdose of medications due to impulsive behavior from adjustment disorder. No intention of killing herself. 2. Chronic obstructive pulmonary disease in a current smoker. 3. Chronic nicotine dependence. Patient active cigarette smoker. 4. Chronic obstructive pulmonary disease in a current smoker. 5. Coronary artery disease with prior history of stent. 6. Essential hypertension. 7. Primary osteoarthritis multiple joints, bilateral. 8. Chronic restless leg syndrome. 9. Depression, not otherwise specified. 10. Darrier's disease causing persistent severe itching HOSPITAL COURSE: This patient thought her son might get incarcerated and took overdose of pills just trying to go to sleep, did not really intend to kill herself, it doing well. Subsequently after being observed and seen by psychiatry Dr. Cronin, no need for further treatment. Patient does have a legal guardian. Nurse was told to contact them. Patient's chronic itching from Darrier's disease. Counseled against smoking. On examination, lungs decreased breath sounds. Chronic itching from Darrier's disease. DISCHARGE MEDICATIONS: 1. Plavix 75 mg a day. 2. Norvasc 5 mg a day. 3. Aldactone 25 mg a day. 4. Aspirin 81 mg daily. 5. Lasix 40 mg a day. 6. Mobic 7.5 p.o. q.h.s. 7. ( ) 25 mg p.o. q.6 p.r.n. 8. Remeron 50 mg at bedtime. 9. Desyrel 100 mg q.h.s. 10. Zoloft 50 mg p.o. daily. Follow up with Visiting Physician Dr. Nunn in two days.
== END 2016-05-17 18:20 | disposition home or self-care (01) ==
LOC: EC 17:44 → 3OBS 19:42
PROVIDERS: ADMIT Hospitalist; ATTEND Hospitalist
DX: T50.901A Poisoning by unspecified drugs, medicaments and biological substances, accidental (unintentional), initial encounter (principal); R45.87 Impulsiveness; F43.20 Adjustment disorder, unspecified; J44.9 Chronic obstructive pulmonary disease, unspecified; F17.210 Nicotine dependence, cigarettes, uncomplicated; I25.10 Atherosclerotic heart disease of native coronary artery without angina pectoris; I10 Essential (primary) hypertension; M19.91 Primary osteoarthritis, unspecified site; M15.9 Polyosteoarthritis, unspecified; G25.81 Restless legs syndrome; F32.9 Major depressive disorder, single episode, unspecified; Z79.899 Other long term (current) drug therapy; Z79.82 Long term (current) use of aspirin; Z88.1 Allergy status to other antibiotic agents; Z88.0 Allergy status to penicillin; Z88.2 Allergy status to sulfonamides; Z88.8 Allergy status to other drugs, medicaments and biological substances; Z91.018 Allergy to other foods; Q82.8 Other specified congenital malformations of skin; Z95.5 Presence of coronary angioplasty implant and graft; Z86.14 Personal history of Methicillin resistant Staphylococcus aureus infection; F03.90 Unspecified dementia, unspecified severity, without behavioral disturbance, psychotic disturbance, mood disturbance, and anxiety; Z79.1 Long term (current) use of non-steroidal anti-inflammatories (NSAID); L29.9 Pruritus, unspecified
CPT/HCPCS: 99285 ×2; 82075; 36415; 93005; 80051; 80053; 82150; 83690; 83735 ×2; 85025; 85610; 80306; 83520 ×2; 80320; G0378 ×2

== ENCOUNTER 2016-06-21 16:53 | Emergency (ER) | payer MEDICARE ==
[2016-06-21 17:52] VITALS: BP 140/69; PULSE 83; RESP 18; TEMP 98.1
[2016-06-21] MEDS ORDERED: CEPHALEXIN 500MG STARTER PACK 4 CAP BTL PO STA (18:50)
[2016-06-21] MEDS ORDERED: predniSONE 50 MG TAB PO STA (18:50)
[2016-06-21] MEDS ORDERED: diphenhydrAMINE 50 MG CAP PO STA (18:50)
--- NOTE | 2016-06-21 18:54 | ED ---
Skin/Abscess/FB HPI - General Chief complaint: Skin/Abscess/Foreign Body Stated complaint: Rash Time Seen by Provider: 06/21/16 18:24 Source: patient, RN notes reviewed, old records reviewed Mode of arrival: ambulatory Limitations: no limitations - History of Present Illness Initial comments: This is a 65 year old female with chief complaint of a pruritic scaly rash on abdomen, chest, and back and neck for 3 weeks. She reports she was diagnosed with Dairier disease, and this is a flare up. She states she recently was [facility], and the rash started in there. She denies fever or chills. She states this is usually managed with a cream, and benadryl as she is very itchy. Patient denies any chest pain, shortness of breath, nausea, vomting. headache. - Related Data Home Medications Medication Instructions Recorded Confirmed amLODIPine [Norvasc] 5 mg PO DAILY 09/22/15 05/16/16 Spironolactone [Aldactone] 25 mg PO DAILY 12/12/15 05/16/16 Aspirin EC [Ecotrin Low Dose] 81 mg PO DAILY 04/18/16 05/16/16 Furosemide [Lasix] 40 mg PO DAILY 04/18/16 05/16/16 Meloxicam [Mobic] 7.5 mg PO HS 04/18/16 05/16/16 hydrOXYzine HCL [Atarax] 25 mg PO Q6H PRN 04/18/16 05/16/16 Sertraline [Zoloft] 50 mg PO DAILY 05/06/16 05/16/16 Previous Rx's Medication Instructions Recorded Clopidogrel [Plavix] 75 mg PO DAILY #14 tab 12/02/14 Loratadine [Claritin] 5 mg PO Q12HR #30 tab 04/23/16 Mirtazapine [Remeron] 15 mg PO HS #30 tab 04/23/16 traZODone HCL [Desyrel] 100 mg PO HS 30 Days 04/23/16 Cephalexin [Keflex] 500 mg PO Q8HR #21 cap 06/21/16 Clotrimazole [Clotrimazole 1%] 1 applic TOPICAL BID #30 ml 06/21/16 Mupirocin Calcium 2% Cream 1 applic TOPICAL TID #1 tube 06/21/16 [Bactroban 2% Cream] diphenhydrAMINE [Benadryl] 25 mg PO TID PRN #30 capsule 06/21/16 methylPREDNISolone Dose Pack 4 mg PO DIRECTED #21 package 06/21/16 [Medrol Dose Pack] Allergies Allergy/AdvReac Type Severity Reaction Status Date / Time erythromycin base Allergy Rash/Hives Verified 06/21/16 17:52 [Erythromycin Base] etodolac [From Lodine] Allergy Rash/Hives Verified 06/21/16 17:52 flurazepam [From Dalmane] Allergy Rash/Hives Verified 06/21/16 17:52 Penicillins Allergy Rash/Hives Verified 06/21/16 17:52 pentazocine lactate Allergy Rash/Hives Verified 06/21/16 17:52 [From Talwin] secobarbital sodium Allergy Rash/Hives Verified 06/21/16 17:52 [From Seconal] Sulfa (Sulfonamide Allergy Rash/Hives Verified 06/21/16 17:52 Antibiotics) Bleach (Sodium Hypochlorite) AdvReac Rash/Hives Verified 06/21/16 17:52 oatmeal Allergy Rash/Hives Uncoded 06/21/16 17:52 Review of Systems ROS Statement: Those systems with pertinent positive or pertinent negative responses have been documented in the HPI. ROS Other: All systems not noted in ROS Statement are negative. Past Medical History Past Medical History: Coronary Artery Disease (CAD), Chest Pain / Angina, COPD, GERD/Reflux, Musculoskeletal Disorder Additional Past Medical History / Comment(s): Darier Disease, MS, RLS, bilateral legs cramp when walking long distances, UTI, DJD lumbar spine, pancreatitis History of Any Multi-Drug Resistant Organisms: MRSA Date of last positivie culture/infection: 09/05/2012 MDRO Source:: Urine Past Surgical History: Cholecystectomy, Heart Catheterization With Stent, Hernia Repair, Hysterectomy, Orthopedic Surgery Additional Past Surgical History / Comment(s): surgeries on left leg due to accident; Four lipomas removed from lower back; bunionectomy on left foot in August 2013, states, bowel prolapsed and they put back in place Past Anesthesia/Blood Transfusion Reactions: No Reported Reaction Additional Past Anesthesia/Blood Transfusion Reaction / Comment(s): . Date of Last Stent Placement:: 2011 Past Psychological History: Anxiety, Depression Additional Psychological History / Comment(s): She is independent. reports having a Legal Gaurdian. She uses no assistive device. She does not drive. patient denies depression but found in old history Smoking Status: Current every day smoker Past Alcohol Use History: None Reported Additional Past Alcohol Use History / Comment(s): . Past Drug Use History: None Reported - Past Family History Father Family Medical History: No Reported History Additional Family Medical History / Comment(s): father at age 92 yrs. Mother Family Medical History: COPD Additional Family Medical History / Comment(s): Mother at age 62yrs. General Exam - General Exam Comments Initial Comments: Pleasant 65 year old female, no distress. Limitations: no limitations General appearance: alert, in no apparent distress Head exam: Present: atraumatic, normocephalic, normal inspection Eye exam: Present: normal appearance, PERRL, EOMI. Absent: scleral icterus, conjunctival injection, periorbital swelling ENT exam: Present: normal exam, mucous membranes moist Neck exam: Present: normal inspection. Absent: tenderness, meningismus, lymphadenopathy Respiratory exam: Present: normal lung sounds bilaterally. Absent: respiratory distress, wheezes, rales, rhonchi, stridor Cardiovascular Exam: Present: regular rate, normal rhythm, normal heart sounds. Absent: systolic murmur, diastolic murmur, rubs, gallop, clicks GI/Abdominal exam: Present: soft, normal bowel sounds. Absent: distended, tenderness, guarding, rebound, rigid Extremities exam: Present: normal inspection, full ROM, normal capillary refill. Absent: tenderness, pedal edema, joint swelling, calf tenderness Back exam: Present: normal inspection Neurological exam: Present: alert, oriented X3, CN II-XII intact Psychiatric exam: Present: normal affect, normal mood Skin exam: Present: warm, dry, intact, normal color, rash (erythematous plaque like rash over trunk, chest, back, and neck. Rash is consistent with pictures of dairier disease. ) Course Vital Signs 06/21/16 17:49 Temperature 98.1 F Pulse Rate 83 Respiratory 18 Rate Blood Pressure 140/69 O2 Sat by Pulse 97 Oximetry Medical Decision Making - Medical Decision Making his is a 65 year old female with chief complaint of a pruritic scaly rash on abdomen, chest, and back and neck for 3 weeks. She reports she was diagnosed with Dairier disease, and this is a flare up. She states she recently was released from [facility], and the rash started in there. Patient has thick scaly erythematous pruritc rash consistent with picutres of dairier disease. Patient will be started on steroid cream, steroids, and antibiotic due to possible infection from scratching. Patient agrees to take these medication and follow up with electronic assembly. Patient understands treatment planand will comply. Disposition Clinical Impression: Dermatitis Disposition: HOME SELF-CARE Condition: Good Instructions: Impetigo (ED) Additional Instructions: Patient advised to follow up with primary care provider within the next week. Take prescription perceptions as directed. Return to the emergency department if any alarming signs or symptoms occur. Prescriptions: Cephalexin [Keflex] 500 mg PO Q8HR #21 cap Clotrimazole [Clotrimazole 1%] 1 applic TOPICAL BID #30 ml Mupirocin Calcium 2% Cream [Bactroban 2% Cream] 1 applic TOPICAL TID #1 tube diphenhydrAMINE [Benadryl] 25 mg PO TID PRN #30 capsule PRN Reason: Itching methylPREDNISolone Dose Pack [Medrol Dose Pack] 4 mg PO DIRECTED #21 package Referrals: Micky Nunn MD [Primary Care Provider] - 1-2 days Time of Disposition: 18:53
== END 2016-06-21 19:13 | disposition home or self-care (01) ==
LOC: EC 16:53
DX: L30.9 Dermatitis, unspecified (principal); G35 Multiple sclerosis; I25.10 Atherosclerotic heart disease of native coronary artery without angina pectoris; Z95.5 Presence of coronary angioplasty implant and graft; F41.9 Anxiety disorder, unspecified; F32.9 Major depressive disorder, single episode, unspecified; J44.9 Chronic obstructive pulmonary disease, unspecified; F17.200 Nicotine dependence, unspecified, uncomplicated; Z79.1 Long term (current) use of non-steroidal anti-inflammatories (NSAID); Z79.02 Long term (current) use of antithrombotics/antiplatelets; Z79.82 Long term (current) use of aspirin; Z79.899 Other long term (current) drug therapy; Z88.0 Allergy status to penicillin; Z88.1 Allergy status to other antibiotic agents; Z88.2 Allergy status to sulfonamides; Z88.8 Allergy status to other drugs, medicaments and biological substances; Z86.14 Personal history of Methicillin resistant Staphylococcus aureus infection
CPT/HCPCS: 99282; J7512

== ENCOUNTER 2016-07-09 20:42 | Emergency (ER) | payer MEDICARE ==
[2016-07-09] MEDS ORDERED: MAG HYDROX/AL HYDROX/SIMETH 30 ML, HYOSCYAMINE ELIXIR 10 ML, CIMETIDINE HCL 300 MG, LID... PO STA ×4 (22:49)
[2016-07-09 23:16] LABS: Basophils # (A) 0.1 k/uL (0-0.2); Basophils % (A) 1 %; CH 31.5; CHCM 33.6; Eosinophils # (A) 0.4 k/uL (0-0.7); Eosinophils % (A) 4 %; HCT 39.9 % (34.0-46.0); HDW 2.45; HGB 13.2 gm/dL (11.4-16.0); Luc # (Auto) 0.14; Luc % (Auto) 1; Lymphocytes # (A) 1.8 k/uL (1.0-4.8); Lymphocytes % (A) 18 %; MCH 31.3 pg (25.0-35.0); MCHC 33.2 g/dL (31.0-37.0); MCV 94.2 fL (80.0-100.0); Mean Platelet Volume 6.9; Monocytes # (A) 0.9 k/uL (0-1.0); Monocytes % (A) 9 %; Neutrophils # (A) 6.6 k/uL (1.3-7.7); Neutrophils % (A) 67 %; RBC 4.23 m/uL (3.80-5.40); RDW 12.5 % (11.5-15.5); WBC 9.8 k/uL (3.8-10.6); WBC (Perox) 9.09
[2016-07-09 23:29] LABS: ALT 23 U/L (9-52); AST 27 U/L (14-36); Alkaline Phosphatase 94 U/L (38-126); Anion Gap 7 mmol/L; Blood Urea Nitrogen 21 mg/dL (7-17); Calcium 8.6 mg/dL (8.4-10.2); Carbon Dioxide 24 mmol/L (22-30); Chloride 107 mmol/L (98-107); Glucose 87 mg/dL (74-99); Non-African American GFR(MDRD) 59 (>60 ml/min/1.73 sqM); Potassium 4.2 mmol/L (3.5-5.1); Sodium 138 mmol/L (137-145); Total Bilirubin 0.4 mg/dL (0.2-1.3)
--- NOTE | 2016-07-09 23:38 | XR ---
EXAM: XR Chest, 2 Views CLINICAL HISTORY: Chest pain. TECHNIQUE: Frontal and lateral views of the chest. COMPARISON: Chest radiograph dated 05/15/16. FINDINGS: Lungs: No airspace consolidation. There is trace atelectasis or scarring at the lung bases. Pleural space: No significant pleural effusion. No pneumothorax. Heart: Normal cardiac silhouette. Mediastinum: Aortic arch calcifications. Bones/joints: Decreased osseous mineralization. Redemonstrated mild height loss of the T12 vertebral body. IMPRESSION: No acute findings.
--- NOTE | 2016-07-09 23:40 | ED ---
General Adult HPI - General Chief complaint: Abdominal Pain Stated complaint: rt side "jitters" Time Seen by Provider: 07/09/16 22:09 Source: patient, RN notes reviewed, old records reviewed Mode of arrival: ambulatory Limitations: no limitations - History of Present Illness Initial comments: Patient is a 65-year-old female chief complaint of right-sided HEADACHE and chest pain. Patient reports that she's had this chest pain for the past 2 days. She denies any fever or chills or shortness breath. She is a smoker. She denies any nausea or vomiting. She reports that she has the pain when she presses on her chest. - Related Data Home Medications Medication Instructions Recorded Confirmed amLODIPine [Norvasc] 5 mg PO DAILY 09/22/15 07/09/16 Spironolactone [Aldactone] 25 mg PO DAILY 12/12/15 07/09/16 Aspirin EC [Ecotrin Low Dose] 81 mg PO DAILY 04/18/16 07/09/16 Furosemide [Lasix] 40 mg PO DAILY 04/18/16 07/09/16 Meloxicam [Mobic] 7.5 mg PO HS 04/18/16 07/09/16 hydrOXYzine HCL [Atarax] 25 mg PO Q6H PRN 04/18/16 07/09/16 Sertraline [Zoloft] 50 mg PO HS 05/06/16 07/09/16 Previous Rx's Medication Instructions Recorded Clopidogrel [Plavix] 75 mg PO DAILY #14 tab 12/02/14 Loratadine [Claritin] 5 mg PO Q12HR #30 tab 04/23/16 Mirtazapine [Remeron] 15 mg PO HS #30 tab 04/23/16 traZODone HCL [Desyrel] 100 mg PO HS 30 Days 04/23/16 Clotrimazole [Clotrimazole 1%] 1 applic TOPICAL BID #30 ml 06/21/16 Mupirocin Calcium 2% Cream 1 applic TOPICAL TID #1 tube 06/21/16 [Bactroban 2% Cream] Allergies Allergy/AdvReac Type Severity Reaction Status Date / Time erythromycin base Allergy Rash/Hives Verified 07/09/16 22:18 [Erythromycin Base] etodolac [From Lodine] Allergy Rash/Hives Verified 07/09/16 22:18 flurazepam [From Dalmane] Allergy Rash/Hives Verified 07/09/16 22:18 Penicillins Allergy Rash/Hives Verified 07/09/16 22:18 pentazocine lactate Allergy Rash/Hives Verified 07/09/16 22:18 [From Talwin] secobarbital sodium Allergy Rash/Hives Verified 07/09/16 22:18 [From Seconal] Sulfa (Sulfonamide Allergy Rash/Hives Verified 07/09/16 22:18 Antibiotics) Bleach (Sodium Hypochlorite) AdvReac Rash/Hives Verified 07/09/16 21:21 oatmeal Allergy Rash/Hives Uncoded 07/09/16 21:21 Review of Systems ROS Statement: Those systems with pertinent positive or pertinent negative responses have been documented in the HPI. ROS Other: All systems not noted in ROS Statement are negative. Constitutional: Denies: fever Eyes: Denies: eye pain ENT: Denies: ear pain, throat pain Respiratory: Denies: cough, dyspnea, hemoptysis Cardiovascular: Reports: chest pain. Denies: palpitations, dyspnea on exertion , orthopnea Endocrine: Denies: fatigue Gastrointestinal: Denies: abdominal pain, nausea Genitourinary: Reports: urgency Musculoskeletal: Denies: back pain Skin: Denies: rash Neurological: Denies: headache Psychiatric: Denies: depression Hematological/Lymphatic: Denies: easy bleeding Past Medical History Past Medical History: Coronary Artery Disease (CAD), Chest Pain / Angina, COPD, GERD/Reflux, Musculoskeletal Disorder Additional Past Medical History / Comment(s): Darier Disease, MS, RLS, bilateral legs cramp when walking long distances, UTI, DJD lumbar spine, pancreatitis History of Any Multi-Drug Resistant Organisms: MRSA Date of last positivie culture/infection: 09/05/2012 MDRO Source:: Urine Past Surgical History: Cholecystectomy, Heart Catheterization With Stent, Hernia Repair, Hysterectomy, Orthopedic Surgery Additional Past Surgical History / Comment(s): surgeries on left leg due to accident; Four lipomas removed from lower back; bunionectomy on left foot in August 2013, states, bowel prolapsed and they put back in place Past Anesthesia/Blood Transfusion Reactions: No Reported Reaction Additional Past Anesthesia/Blood Transfusion Reaction / Comment(s): . Date of Last Stent Placement:: 2011 Past Psychological History: Anxiety, Depression Additional Psychological History / Comment(s): She is independent. reports having a Legal Gaurdian. She uses no assistive device. She does not drive. patient denies depression but found in old history Smoking Status: Current every day smoker Past Alcohol Use History: None Reported Additional Past Alcohol Use History / Comment(s): . Past Drug Use History: None Reported - Past Family History Father Family Medical History: No Reported History Additional Family Medical History / Comment(s): father at age 92 yrs. Mother Family Medical History: COPD Additional Family Medical History / Comment(s): Mother at age 62yrs. General Exam - General Exam Comments Initial Comments: This is a 5-year-old female. Patient is on appear to be in any acute distress. Limitations: no limitations General appearance: alert, in no apparent distress Head exam: Present: atraumatic, normocephalic, normal inspection Eye exam: Present: normal appearance, PERRL, EOMI. Absent: scleral icterus, conjunctival injection, periorbital swelling ENT exam: Present: normal exam, mucous membranes moist Neck exam: Present: normal inspection. Absent: tenderness, meningismus, lymphadenopathy Respiratory exam: Present: normal lung sounds bilaterally. Absent: respiratory distress, wheezes, rales, rhonchi, stridor Cardiovascular Exam: Present: regular rate, normal rhythm, normal heart sounds, other (reproducible chest pain with pressure on sternum and left and right chest wall. ). Absent: systolic murmur, diastolic murmur, rubs, gallop, clicks GI/Abdominal exam: Present: soft, normal bowel sounds. Absent: distended, tenderness, guarding, rebound, rigid Extremities exam: Present: normal inspection, full ROM, normal capillary refill. Absent: tenderness, pedal edema, joint swelling, calf tenderness Back exam: Present: normal inspection Neurological exam: Present: alert, oriented X3, CN II-XII intact Psychiatric exam: Present: normal affect, normal mood Skin exam: Present: warm, dry, intact, normal color. Absent: rash Course Vital Signs 07/09/16 07/10/16 21:19 01:18 Temperature 99.1 F 98.3 F Pulse Rate 84 88 Respiratory 189 H 20 Rate Blood Pressure 125/77 126/72 O2 Sat by Pulse 97 98 Oximetry Medical Decision Making - Medical Decision Making This is a 65 year old female with reproducible chest pain for 2 days. XRAY and lab work reviewed, and normal. Patient legal guardian stated no narcotics. Patient has been informed of results, given length of symptoms and reproducibility, unlikely to be cardiac in nature. PAtient agrees to follow up with PCP and continue to take antiinflammatories. Patient case discussed with Dr. Brown. Patient will be discharged home. Return paramteres discussed. - Lab Data Result diagrams: 07/09/16 22:51 07/09/16 22:51 Lab Results 07/09/16 07/09/16 07/09/16 Range/Units 22:51 22:51 22:51 WBC 9.8 (3.8-10.6) k/uL RBC 4.23 (3.80-5.40) m/uL Hgb 13.2 (11.4-16.0) gm/dL Hct 39.9 (34.0-46.0) % MCV 94.2 (80.0-100.0) fL MCH 31.3 (25.0-35.0) pg MCHC 33.2 (31.0-37.0) g/dL RDW 12.5 (11.5-15.5) % Plt Count 403 (150-450) k/uL Neutrophils % 67 % Lymphocytes % 18 % Monocytes % 9 % Eosinophils % 4 % Basophils % 1 % Neutrophils # 6.6 (1.3-7.7) k/uL Lymphocytes # 1.8 (1.0-4.8) k/uL Monocytes # 0.9 (0-1.0) k/uL Eosinophils # 0.4 (0-0.7) k/uL Basophils # 0.1 (0-0.2) k/uL Sodium 138 (137-145) mmol/L Potassium 4.2 (3.5-5.1) mmol/L Chloride 107 (98-107) mmol/L Carbon Dioxide 24 (22-30) mmol/L Anion Gap 7 mmol/L BUN 21 H (7-17) mg/dL Creatinine 0.95 (0.52-1.04) mg/dL Est GFR (MDRD) Af Amer >60 (>60 ml/min/1.73 sqM) Est GFR (MDRD) Non-Af 59 (>60 ml/min/1.73 sqM) Glucose 87 (74-99) mg/dL Calcium 8.6 (8.4-10.2) mg/dL Magnesium 2.0 (1.6-2.3) mg/dL Total Bilirubin 0.4 (0.2-1.3) mg/dL AST 27 (14-36) U/L ALT 23 (9-52) U/L Alkaline Phosphatase 94 (38-126) U/L Total Creatine Kinase 74 (30-135) U/L CK-MB (CK-2) 0.9 (0.0-2.4) ng/mL CK-MB (CK-2) Rel Index 1.2 Troponin I <0.012 (0.000-0.034) ng/mL Total Protein 7.0 (6.3-8.2) g/dL Albumin 3.6 (3.5-5.0) g/dL 07/10/16 00:34 EKG shows normal sinus rhythm. No evidence of salivation to inversion. No evidence of atrial or ventricular arrhythmias. - Radiology Data Radiology results: report reviewed CXR negative for any acute process. Disposition Clinical Impression: Costochondritis Disposition: HOME SELF-CARE Condition: Good Instructions: Costochondritis (ED) Additional Instructions: Follow-up with primary care provider within the next 1-2 days. Return to emergency department if any alarming signs or symptoms occur. Patient resting Motrin Tylenol for pain. Referrals: Micky Nunn MD [Primary Care Provider] - 1-2 days Time of Disposition: 00:54
[2016-07-09 23:43] LABS: Creatine Kinase 74 U/L (30-135)
[2016-07-09 23:55] LABS: Creatine Kinase MB 0.9 ng/mL (0.0-2.4); Troponin I <0.012 ng/mL (0.000-0.034)
[2016-07-10 01:22] VITALS: BP 126/72; PULSE 88; RESP 20; TEMP 98.3
== END 2016-07-10 01:22 | disposition home or self-care (01) ==
LOC: EC 20:42
DX: M94.0 Chondrocostal junction syndrome [Tietze] (principal); F32.9 Major depressive disorder, single episode, unspecified; F17.200 Nicotine dependence, unspecified, uncomplicated; Z90.49 Acquired absence of other specified parts of digestive tract; Z88.0 Allergy status to penicillin; Z88.1 Allergy status to other antibiotic agents; Z88.2 Allergy status to sulfonamides; Z88.8 Allergy status to other drugs, medicaments and biological substances; Z79.82 Long term (current) use of aspirin; Z79.899 Other long term (current) drug therapy
CPT/HCPCS: 36415; 71020; 80053; 82550; 82553; 83735; 84484; 85025; 93005; 99285

== ENCOUNTER 2016-07-28 16:24 | Emergency (ER) | payer MEDICARE ==
[2016-07-28 16:38] VITALS: RESP 20
[2016-07-28] MEDS ORDERED: diphenhydrAMINE 50 MG/ML 1 ML VIAL IM STA (17:13)
--- NOTE | 2016-07-28 17:20 | ED ---
General Adult HPI - General Chief complaint: Skin/Abscess/Foreign Body Stated complaint: Rash Time Seen by Provider: 07/28/16 16:54 Source: patient, RN notes reviewed, old records reviewed Mode of arrival: EMS Limitations: no limitations - History of Present Illness Initial comments: This is a 66 year old female, well known to the emergency department arriving to ED via EMS with chief complaint of a rash exacerbation. 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 Bc reports it is pruritic, and that she does not have any benadryl. Patient is concerned that her rash may get infected as she scratches so much. Denies any fever, chills, or change in her rash compared to usual. Patient denies nausea, vomiting, abdominal pain, headache, peripheral paresthesias, dysuria, hematuria, melena. - Related Data Home Medications Medication Instructions Recorded Confirmed Menthol/Zinc Oxide [Calmoseptine 1 applic TOPICAL DAILY PRN 07/28/16 07/28/16 Ointment] Previous Rx's Medication Instructions Recorded Cephalexin [Keflex] 500 mg PO Q8HR #21 cap 07/28/16 Triamcinolone 0.1% Lotion [Kenalog 1 applic TOPICAL BID #60 ml 07/28/16 0.1% Lotion] diphenhydrAMINE [Benadryl] 25 mg PO TID PRN #20 capsule 07/28/16 methylPREDNISolone Dose Pack 4 mg PO DIRECTED #21 package 07/28/16 [Medrol Dose Pack] Allergies Allergy/AdvReac Type Severity Reaction Status Date / Time erythromycin base Allergy Rash/Hives Verified 07/28/16 16:55 [Erythromycin Base] etodolac [From Lodine] Allergy Rash/Hives Verified 07/28/16 16:55 flurazepam [From Dalmane] Allergy Rash/Hives Verified 07/28/16 16:55 Penicillins Allergy Rash/Hives Verified 07/28/16 16:55 pentazocine lactate Allergy Rash/Hives Verified 07/28/16 16:55 [From Talwin] secobarbital sodium Allergy Rash/Hives Verified 07/28/16 16:55 [From Seconal] Sulfa (Sulfonamide Allergy Rash/Hives Verified 07/28/16 16:55 Antibiotics) Bleach (Sodium Hypochlorite) AdvReac Rash/Hives Verified 07/28/16 16:55 oatmeal Allergy Rash/Hives Uncoded 07/28/16 16:38 Review of Systems ROS Statement: Those systems with pertinent positive or pertinent negative responses have been documented in the HPI. ROS Other: All systems not noted in ROS Statement are negative. Past Medical History Past Medical History: Coronary Artery Disease (CAD), Chest Pain / Angina, COPD, GERD/Reflux, Musculoskeletal Disorder Additional Past Medical History / Comment(s): Darier Disease, MS, RLS, bilateral legs cramp when walking long distances, UTI, DJD lumbar spine, pancreatitis History of Any Multi-Drug Resistant Organisms: MRSA Date of last positivie culture/infection: 09/05/2012 MDRO Source:: Urine Past Surgical History: Cholecystectomy, Heart Catheterization With Stent, Hernia Repair, Hysterectomy, Orthopedic Surgery Additional Past Surgical History / Comment(s): surgeries on left leg due to accident; Four lipomas removed from lower back; bunionectomy on left foot in August 2013, states, bowel prolapsed and they put back in place Past Anesthesia/Blood Transfusion Reactions: No Reported Reaction Additional Past Anesthesia/Blood Transfusion Reaction / Comment(s): . Date of Last Stent Placement:: 2011 Past Psychological History: Anxiety, Depression Additional Psychological History / Comment(s): She is independent. reports having a Legal Gaurdian. She uses no assistive device. She does not drive. patient denies depression but found in old history Smoking Status: Current every day smoker Past Alcohol Use History: None Reported Additional Past Alcohol Use History / Comment(s): . Past Drug Use History: None Reported - Past Family History Father Family Medical History: No Reported History Additional Family Medical History / Comment(s): father at age 92 yrs. Mother Family Medical History: COPD Additional Family Medical History / Comment(s): Mother at age 62yrs. General Exam - General Exam Comments Initial Comments: Well appearing 66 year old female. Patient is sitting on exam bed resting comfortably. Limitations: no limitations General appearance: alert, in no apparent distress Head exam: Present: atraumatic, normocephalic, normal inspection Eye exam: Present: normal appearance, PERRL, EOMI. Absent: scleral icterus, conjunctival injection, periorbital swelling ENT exam: Present: normal exam, mucous membranes moist Neck exam: Present: normal inspection. Absent: tenderness, meningismus, lymphadenopathy Respiratory exam: Present: normal lung sounds bilaterally. Absent: respiratory distress, wheezes, rales, rhonchi, stridor Cardiovascular Exam: Present: regular rate, normal rhythm, normal heart sounds. Absent: systolic murmur, diastolic murmur, rubs, gallop, clicks Extremities exam: Present: normal inspection, full ROM, normal capillary refill. Absent: tenderness, pedal edema, joint swelling, calf tenderness Back exam: Present: normal inspection Neurological exam: Present: alert, oriented X3, CN II-XII intact Psychiatric exam: Present: normal affect, normal mood Skin exam: Present: warm, dry, intact, normal color, rash (pruritic, erythematous scaley rash over trunk, legs, and arms. Rash is consistent with images of Darier's disease. ) Course Vital Signs 07/28/16 07/28/16 16:36 17:44 Temperature 97.8 F 98.0 F Pulse Rate 90 86 Respiratory 20 20 Rate Blood Pressure 112/59 124/60 O2 Sat by Pulse 96 98 Oximetry Medical Decision Making - Medical Decision Making This is a 66 year old female, well known to the emergency department arriving to ED via EMS with chief complaint of a rash exacerbation. 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 Bc reports it is pruritic, and that she does not have any benadryl. Patient is concerned that her rash may get infected as she scratches so much. Patient given benadryl in EC, discussed following up with boiler erector. Patient discharged with steriods, keflex, and steriod cream. Advised close follow up, return parameters discussed. Disposition Clinical Impression: Rash, Darier's disease Disposition: HOME SELF-CARE Condition: Good Instructions: Dermatitis (ED) Additional Instructions: Did not scratch at the areas. TAKE MEDICATIONS DIRECTED. APPLY THE LOTION TWICE A DAY. FOLLOW-UP WITH [facility] WORK[facility]. Prescriptions: Cephalexin [Keflex] 500 mg PO Q8HR #21 cap diphenhydrAMINE [Benadryl] 25 mg PO TID PRN #20 capsule PRN Reason: Itching methylPREDNISolone Dose Pack [Medrol Dose Pack] 4 mg PO DIRECTED #21 package Triamcinolone 0.1% Lotion [Kenalog 0.1% Lotion] 1 applic TOPICAL BID #60 ml Referrals: Micky Nunn MD [Primary Care Provider] - 1-2 days Time of Disposition: 17:16
[2016-07-28 17:45] VITALS: BP 124/60; PULSE 86; TEMP 98
== END 2016-07-28 17:43 | disposition home or self-care (01) ==
LOC: EC 16:24
DX: R21 Rash and other nonspecific skin eruption (principal); Q82.8 Other specified congenital malformations of skin; F17.200 Nicotine dependence, unspecified, uncomplicated; Z88.1 Allergy status to other antibiotic agents; Z88.0 Allergy status to penicillin; Z88.2 Allergy status to sulfonamides; Z88.8 Allergy status to other drugs, medicaments and biological substances
CPT/HCPCS: 99283; 96372; J1200

== ENCOUNTER 2016-08-06 17:45 | Emergency (ER) | payer MEDICARE ==
[2016-08-06] MEDS ORDERED: diphenhydrAMINE 50 MG CAP PO STA (18:19)
[2016-08-06] MEDS ORDERED: hydrOXYzine HCL 25 MG TAB PO STA (18:25)
--- NOTE | 2016-08-06 18:45 | ED ---
General Adult HPI - General Chief complaint: Skin/Abscess/Foreign Body Stated complaint: Rash Time Seen by Provider: 08/06/16 18:08 Source: patient, RN notes reviewed, old records reviewed Mode of arrival: EMS Limitations: no limitations - History of Present Illness Initial comments: Physical 66-year-old female well-known to the emergency department with chief complaint of pruritic rash. Patient has been seen multiple times for this rash and placed on multiple doses Hamm antibiotics. Patient states it is not getting any better. 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 Patient states that she's had this rash for many years. Patient states it is extremely pruritic. She states that she cannot get Benadryl or see a medical radiation dosimetrist because her legal guardian is not working well with her. Patient reports that she does not have money to purchase Benadryl. She arrived to the emergency department via EMS for this rash. Patient states that she has no other complaints besides the rash. She denies any fever, chills, nausea, vomiting, chest pain, shortness breath, dysuria, hematuria, diarrhea or changes in bowel movements. - Related Data Home Medications Medication Instructions Recorded Confirmed Cephalexin [Keflex] 500 mg PO Q6H 08/06/16 08/06/16 Previous Rx's Medication Instructions Recorded diphenhydrAMINE & Zinc Cream 1 applic TOPICAL BID #60 gm 08/06/16 [Benadryl Cream] diphenhydrAMINE [Benadryl] 25 mg PO TID PRN #30 capsule 08/06/16 Allergies Allergy/AdvReac Type Severity Reaction Status Date / Time erythromycin base Allergy Rash/Hives Verified 08/06/16 18:19 [Erythromycin Base] etodolac [From Lodine] Allergy Rash/Hives Verified 08/06/16 18:19 flurazepam [From Dalmane] Allergy Rash/Hives Verified 08/06/16 18:19 Penicillins Allergy Rash/Hives Verified 08/06/16 18:19 pentazocine lactate Allergy Rash/Hives Verified 08/06/16 18:19 [From Talwin] secobarbital sodium Allergy Rash/Hives Verified 08/06/16 18:19 [From Seconal] Sulfa (Sulfonamide Allergy Rash/Hives Verified 08/06/16 18:19 Antibiotics) Bleach (Sodium Hypochlorite) AdvReac Rash/Hives Verified 08/06/16 18:19 oatmeal Allergy Rash/Hives Uncoded 08/06/16 18:06 Review of Systems ROS Statement: Those systems with pertinent positive or pertinent negative responses have been documented in the HPI. ROS Other: All systems not noted in ROS Statement are negative. Past Medical History Past Medical History: Coronary Artery Disease (CAD), Chest Pain / Angina, COPD, GERD/Reflux, Musculoskeletal Disorder Additional Past Medical History / Comment(s): Darier Disease, MS, RLS, bilateral legs cramp when walking long distances, UTI, DJD lumbar spine, pancreatitis History of Any Multi-Drug Resistant Organisms: MRSA Date of last positivie culture/infection: 09/05/2012 MDRO Source:: Urine Past Surgical History: Cholecystectomy, Heart Catheterization With Stent, Hernia Repair, Hysterectomy, Orthopedic Surgery Additional Past Surgical History / Comment(s): surgeries on left leg due to accident; Four lipomas removed from lower back; bunionectomy on left foot in August 2013, states, bowel prolapsed and they put back in place Past Anesthesia/Blood Transfusion Reactions: No Reported Reaction Additional Past Anesthesia/Blood Transfusion Reaction / Comment(s): . Date of Last Stent Placement:: 2011 Past Psychological History: Anxiety, Depression Additional Psychological History / Comment(s): She is independent. reports having a Legal Gaurdian. She uses no assistive device. She does not drive. patient denies depression but found in old history Smoking Status: Current every day smoker Past Alcohol Use History: None Reported Additional Past Alcohol Use History / Comment(s): . Past Drug Use History: None Reported - Past Family History Father Family Medical History: No Reported History Additional Family Medical History / Comment(s): father at age 92 yrs. Mother Family Medical History: COPD Additional Family Medical History / Comment(s): Mother at age 62yrs. General Exam - General Exam Comments Initial Comments: Pleasant 66-year-old female. No acute distress. Limitations: no limitations General appearance: alert, in no apparent distress Head exam: Present: atraumatic, normocephalic, normal inspection Eye exam: Present: normal appearance, PERRL, EOMI. Absent: scleral icterus, conjunctival injection, periorbital swelling ENT exam: Present: normal exam, mucous membranes moist Neck exam: Present: normal inspection. Absent: tenderness, meningismus, lymphadenopathy Respiratory exam: Present: normal lung sounds bilaterally. Absent: respiratory distress, wheezes, rales, rhonchi, stridor Cardiovascular Exam: Present: regular rate, normal rhythm, normal heart sounds. Absent: systolic murmur, diastolic murmur, rubs, gallop, clicks GI/Abdominal exam: Present: soft, normal bowel sounds. Absent: distended, tenderness, guarding, rebound, rigid Extremities exam: Present: normal inspection, full ROM, normal capillary refill. Absent: tenderness, pedal edema, joint swelling, calf tenderness Back exam: Present: normal inspection Neurological exam: Present: alert, oriented X3, CN II-XII intact Psychiatric exam: Present: normal affect, normal mood Skin exam: Present: warm, dry, intact, normal color, rash (She has a raised pruritic, wartlike rash over chest, back and knees. Patient rashes similar to all previous appearance of a rash consistent with anterior disease.) Course Vital Signs 08/06/16 18:05 Temperature 98.1 F Pulse Rate 76 Respiratory 20 Rate Blood Pressure 125/70 O2 Sat by Pulse 98 Oximetry Medical Decision Making - Medical Decision Making Physical 66-year-old female well-known to the emergency department with chief complaint of pruritic rash. Patient has been seen multiple times for this rash and placed on multiple doses Hamm antibiotics. Patient states it is not getting any better. 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 Patient states that she's had this rash for many years. Patient states it is extremely pruritic. She states that she cannot get Benadryl or see a medical radiation dosimetrist because her legal guardian is not working well with her. Patient reports that she does not have money to purchase Benadryl. She arrived to the emergency department via EMS for this rash. Patient states that she has no other complaints besides the rash. She denies any fever, chills, nausea, vomiting, chest pain, shortness breath, dysuria, hematuria, diarrhea or changes in bowel movements. Patient does have a significant rash over trunk, chest, back and legs. Rash is consistent with infectious anterior disease. Discussed that she's been on multiple rounds of steroids and Keflex but has not followed up with her primary care provider or a medical radiation dosimetrist. Discussed that with no improvement of the rash with oral treatments is unlikely this is given a change anything to continue to do that at this time. Discussed that she has to follow- up with a medical radiation dosimetrist as soon as possible. Discussed that I can write the patient for Benadryl but she can pick the prescription up. Patient was given Benadryl and Atarax the emergency department. I will also write her for Benadryl cream to put over her skin. Patient agrees to treatment plan will comply. Return parameters were discussed. Disposition Clinical Impression: Rash, Dermatitis Disposition: HOME SELF-CARE Condition: Good Instructions: Dermatitis (ED) Additional Instructions: Patient must follow-up with primary care physician and medical radiation dosimetrist for further treatment of the rash. Take Benadryl. Continue to apply the steroid cream. Prescriptions: diphenhydrAMINE [Benadryl] 25 mg PO TID PRN #30 capsule PRN Reason: Itching diphenhydrAMINE & Zinc Cream [Benadryl Cream] 1 applic TOPICAL BID #60 gm Referrals: Micky Nunn MD [Primary Care Provider] - 1-2 days Time of Disposition: 18:43
[2016-08-06] MEDS ORDERED: diphenhydrAMINE 50 MG/ML 1 ML VIAL IM STA (18:50)
[2016-08-06 19:11] VITALS: BP 147/83; PULSE 75; RESP 18; TEMP 98.3
== END 2016-08-06 19:09 | disposition home or self-care (01) ==
LOC: EC 17:45
DX: L30.9 Dermatitis, unspecified (principal); F17.200 Nicotine dependence, unspecified, uncomplicated; Z88.0 Allergy status to penicillin; Z88.1 Allergy status to other antibiotic agents; Z88.2 Allergy status to sulfonamides; Z91.018 Allergy to other foods; Z88.8 Allergy status to other drugs, medicaments and biological substances; Z91.048 Other nonmedicinal substance allergy status
CPT/HCPCS: 99283; 96372; J1200

== ENCOUNTER 2016-08-17 17:09 | Emergency (ER) | payer MEDICARE ==
[2016-08-17] MEDS ORDERED: SODIUM CHLORIDE 0.9% 1,000 ML IV STA ×2 (17:18)
[2016-08-17] MEDS ORDERED: FAMOTIDINE 20 MG/2 ML VIAL IV STA (17:19)
[2016-08-17 17:20] VITALS: RESP 18
--- NOTE | 2016-08-17 17:43 | ED ---
Syncope HPI - General Chief Complaint: Syncope Stated Complaint: syncope Time Seen by Provider: 08/17/16 17:09 Source: patient, EMS Mode of arrival: EMS Limitations: no limitations - History of Present Illness Initial Comments: This is a 58-year-old female who states that she got to the bathroom she passed out. She states she was over 12 minutes she denies any injury neighbor found her called EMS. Patient was found be awake alert oriented history vital signs are stable per paramedics. Her B complaints is a she itches everywhere. 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 MD Complaint: loss of consciousness - Related Data Home Medications Medication Instructions Recorded Confirmed Aspirin 81 mg PO DAILY 08/17/16 08/17/16 Clopidogrel Bisulfate [Plavix] 75 mg PO DAILY 08/17/16 08/17/16 Previous Rx's Medication Instructions Recorded diphenhydrAMINE [Benadryl] 25 mg PO QID PRN #40 capsule 08/17/16 hydrOXYzine HCL [Atarax] 25 mg PO QID PRN #40 tab 08/17/16 predniSONE 20 mg PO BID #10 tab 08/17/16 Allergies Allergy/AdvReac Type Severity Reaction Status Date / Time erythromycin base Allergy Rash/Hives Verified 08/17/16 18:36 [Erythromycin Base] etodolac [From Lodine] Allergy Rash/Hives Verified 08/17/16 18:36 flurazepam [From Dalmane] Allergy Rash/Hives Verified 08/17/16 18:36 Penicillins Allergy Rash/Hives Verified 08/17/16 18:36 pentazocine lactate Allergy Rash/Hives Verified 08/17/16 18:36 [From Talwin] secobarbital sodium Allergy Rash/Hives Verified 08/17/16 18:36 [From Seconal] Sulfa (Sulfonamide Allergy Rash/Hives Verified 08/17/16 18:36 Antibiotics) Bleach (Sodium Hypochlorite) AdvReac Rash/Hives Verified 08/17/16 18:36 oatmeal Allergy Rash/Hives Uncoded 08/17/16 17:20 Review of Systems ROS Statement: Those systems with pertinent positive or pertinent negative responses have been documented in the HPI. ROS Other: All systems not noted in ROS Statement are negative. Past Medical History Past Medical History: Coronary Artery Disease (CAD), Chest Pain / Angina, COPD, GERD/Reflux, Musculoskeletal Disorder Additional Past Medical History / Comment(s): Darier Disease, MS, RLS, bilateral legs cramp when walking long distances, UTI, DJD lumbar spine, pancreatitis History of Any Multi-Drug Resistant Organisms: MRSA Date of last positivie culture/infection: 09/05/2012 MDRO Source:: Urine Past Surgical History: Cholecystectomy, Heart Catheterization With Stent, Hernia Repair, Hysterectomy, Orthopedic Surgery Additional Past Surgical History / Comment(s): surgeries on left leg due to accident; Four lipomas removed from lower back; bunionectomy on left foot in August 2013, states, bowel prolapsed and they put back in place Past Anesthesia/Blood Transfusion Reactions: No Reported Reaction Additional Past Anesthesia/Blood Transfusion Reaction / Comment(s): . Date of Last Stent Placement:: 2011 Past Psychological History: Anxiety, Depression Smoking Status: Current every day smoker Past Alcohol Use History: None Reported Past Drug Use History: None Reported - Past Family History Father Family Medical History: No Reported History Additional Family Medical History / Comment(s): father at age 92 yrs. Mother Family Medical History: COPD Additional Family Medical History / Comment(s): Mother at age 62yrs. General Exam - General Exam Comments Initial Comments: Physical well-developed well-nourished awake alert oriented 3 female Limitations: no limitations General appearance: alert, in no apparent distress Head exam: Present: atraumatic, normocephalic, normal inspection Eye exam: Present: normal appearance, PERRL, EOMI. Absent: scleral icterus, conjunctival injection, periorbital swelling ENT exam: Present: mucous membranes dry Neck exam: Present: normal inspection. Absent: tenderness, meningismus, lymphadenopathy Respiratory exam: Present: normal lung sounds bilaterally. Absent: respiratory distress, wheezes, rales, rhonchi, stridor Cardiovascular Exam: Present: regular rate, normal rhythm, normal heart sounds. Absent: systolic murmur, diastolic murmur, rubs, gallop, clicks GI/Abdominal exam: Present: soft, normal bowel sounds. Absent: distended, tenderness, guarding, rebound, rigid Extremities exam: Present: full ROM, normal capillary refill, other (Diffuse rash when various stages of healing). Absent: tenderness, pedal edema, joint swelling, calf tenderness Back exam: Present: normal inspection Neurological exam: Present: alert, oriented X3, CN II-XII intact Psychiatric exam: Present: normal affect, normal mood Skin exam: Present: warm, dry, normal color, other (Rash to the extremities and to the chest and back some evidence of excoriation no evidence of any infectious process). 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 She will be discharged she is increase oral fluids he'll be placed on prescription for the itching she is follow-up with her doctor and return when necessary - Lab Data Result diagrams: 08/17/16 17:44 08/17/16 17:44 Lab Results 08/17/16 08/17/16 08/17/16 Range/Units 17:44 17:44 17:44 WBC 10.0 (3.8-10.6) k/uL RBC 4.33 (3.80-5.40) m/uL Hgb 13.6 (11.4-16.0) gm/dL Hct 42.6 (34.0-46.0) % MCV 98.6 (80.0-100.0) fL MCH 31.4 (25.0-35.0) pg MCHC 31.8 (31.0-37.0) g/dL RDW 13.0 (11.5-15.5) % Plt Count 352 (150-450) k/uL Neutrophils % 72 % Lymphocytes % 13 % Monocytes % 8 % Eosinophils % 4 % Basophils % 1 % Neutrophils # 7.2 (1.3-7.7) k/uL Lymphocytes # 1.3 (1.0-4.8) k/uL Monocytes # 0.8 (0-1.0) k/uL Eosinophils # 0.4 (0-0.7) k/uL Basophils # 0.1 (0-0.2) k/uL PT 10.9 (9.0-12.0) sec INR 1.1 (<1.1) APTT 25.4 (22.0-30.0) sec Sodium 140 (137-145) mmol/L Potassium 4.2 (3.5-5.1) mmol/L Chloride 108 H (98-107) mmol/L Carbon Dioxide 23 (22-30) mmol/L Anion Gap 9 mmol/L BUN 10 (7-17) mg/dL Creatinine 1.10 H (0.52-1.04) mg/dL Est GFR (MDRD) Af Amer 60 (>60 ml/min/1.73 sqM) Est GFR (MDRD) Non-Af 49 (>60 ml/min/1.73 sqM) Glucose 104 H (74-99) mg/dL Calcium 8.8 (8.4-10.2) mg/dL Magnesium 1.9 (1.6-2.3) mg/dL Total Bilirubin 0.3 (0.2-1.3) mg/dL AST 30 (14-36) U/L ALT 23 (9-52) U/L Alkaline Phosphatase 81 (38-126) U/L Total Creatine Kinase (30-135) U/L CK-MB (CK-2) (0.0-2.4) ng/mL CK-MB (CK-2) Rel Index Troponin I (0.000-0.034) ng/mL Total Protein 6.4 (6.3-8.2) g/dL Albumin 3.4 L (3.5-5.0) g/dL Urine Color Urine Appearance (Clear) Urine pH (5.0-8.0) Ur Specific [place] (1.001-1.035) Urine Protein (Negative) Urine Glucose (UA) (Negative) Urine Ketones (Negative) Urine Blood (Negative) Urine Nitrite (Negative) Urine Bilirubin (Negative) Urine Urobilinogen (<2.0) mg/dL Ur Leukocyte Esterase (Negative) 08/17/16 08/17/16 Range/Units 17:44 18:15 WBC (3.8-10.6) k/uL RBC (3.80-5.40) m/uL Hgb (11.4-16.0) gm/dL Hct (34.0-46.0) % MCV (80.0-100.0) fL MCH (25.0-35.0) pg MCHC (31.0-37.0) g/dL RDW (11.5-15.5) % Plt Count (150-450) k/uL Neutrophils % % Lymphocytes % % Monocytes % % Eosinophils % % Basophils % % Neutrophils # (1.3-7.7) k/uL Lymphocytes # (1.0-4.8) k/uL Monocytes # (0-1.0) k/uL Eosinophils # (0-0.7) k/uL Basophils # (0-0.2) k/uL PT (9.0-12.0) sec INR (<1.1) APTT (22.0-30.0) sec Sodium (137-145) mmol/L Potassium (3.5-5.1) mmol/L Chloride (98-107) mmol/L Carbon Dioxide (22-30) mmol/L Anion Gap mmol/L BUN (7-17) mg/dL Creatinine (0.52-1.04) mg/dL Est GFR (MDRD) Af Amer (>60 ml/min/1.73 sqM) Est GFR (MDRD) Non-Af (>60 ml/min/1.73 sqM) Glucose (74-99) mg/dL Calcium (8.4-10.2) mg/dL Magnesium (1.6-2.3) mg/dL Total Bilirubin (0.2-1.3) mg/dL AST (14-36) U/L ALT (9-52) U/L Alkaline Phosphatase (38-126) U/L Total Creatine Kinase 94 (30-135) U/L CK-MB (CK-2) 0.8 (0.0-2.4) ng/mL CK-MB (CK-2) Rel Index 0.9 Troponin I <0.012 (0.000-0.034) ng/mL Total Protein (6.3-8.2) g/dL Albumin (3.5-5.0) g/dL Urine Color Light Yellow Urine Appearance Clear (Clear) Urine pH 6.5 (5.0-8.0) Ur Specific [place] 1.004 (1.001-1.035) Urine Protein Negative (Negative) Urine Glucose (UA) Negative (Negative) Urine Ketones Negative (Negative) Urine Blood Negative (Negative) Urine Nitrite Negative (Negative) Urine Bilirubin Negative (Negative) Urine Urobilinogen <2.0 (<2.0) mg/dL Ur Leukocyte Esterase Negative (Negative) - Radiology Data Radiology results: report reviewed (I did review the imaging and report no acute findings.), image reviewed Disposition Clinical Impression: Syncope due to orthostatic hypotension, Pruritus, Rash, Dehydration Disposition: HOME SELF-CARE Condition: Good Instructions: Itchy Skin (ED), Dehydration (ED) Prescriptions: diphenhydrAMINE [Benadryl] 25 mg PO QID PRN #40 capsule PRN Reason: Itching hydrOXYzine HCL [Atarax] 25 mg PO QID PRN #40 tab PRN Reason: Itching predniSONE 20 mg PO BID #10 tab Referrals: Micky Nunn MD [Primary Care Provider] - 1-2 days
[2016-08-17 17:55] LABS: Basophils # (A) 0.1 k/uL (0-0.2); Basophils % (A) 1 %; CH 31.3; CHCM 31.9; Eosinophils # (A) 0.4 k/uL (0-0.7); Eosinophils % (A) 4 %; HCT 42.6 % (34.0-46.0); HDW 2.18; HGB 13.6 gm/dL (11.4-16.0); Luc # (Auto) 0.17; Luc % (Auto) 2; Lymphocytes # (A) 1.3 k/uL (1.0-4.8); Lymphocytes % (A) 13 %; MCH 31.4 pg (25.0-35.0); MCHC 31.8 g/dL (31.0-37.0); MCV 98.6 fL (80.0-100.0); Mean Platelet Volume 7.2; Monocytes # (A) 0.8 k/uL (0-1.0); Monocytes % (A) 8 %; Neutrophils # (A) 7.2 k/uL (1.3-7.7); Neutrophils % (A) 72 %; RBC 4.33 m/uL (3.80-5.40); WBC (Perox) 10.35
[2016-08-17 18:05] LABS: INR 1.1 (<1.1); Partial Thromboplastin Time 25.4 sec (22.0-30.0); Prothrombin Time 10.9 sec (9.0-12.0)
[2016-08-17 18:08] LABS: Calcium 8.8 mg/dL (8.4-10.2); Magnesium 1.9 mg/dL (1.6-2.3); Potassium 4.2 mmol/L (3.5-5.1); Total Bilirubin 0.3 mg/dL (0.2-1.3); Total Protein 6.4 g/dL (6.3-8.2)
[2016-08-17 18:19] LABS: Creatine Kinase 94 U/L (30-135)
[2016-08-17 18:23] VITALS: BP 100/65; PULSE 71; TEMP 97.9
--- NOTE | 2016-08-17 18:24 | XR ---
EXAMINATION TYPE: XR chest 2V DATE OF EXAM: 08/17/2016 COMPARISON: 07/09/2016 HISTORY: Syncope TECHNIQUE: Frontal and lateral views of the chest are obtained. FINDINGS: Heart is normal. Lungs are clear of consolidation. There is no heart failure. There are no hilar masses. Thoracic aorta is atheromatous. There are chest leads. Bones are osteopenic. There is mild anterior wedging of T12 vertebra. IMPRESSION: No active cardiac pulmonary disease. No change.
[2016-08-17 18:32] LABS: Creatine Kinase MB 0.8 ng/mL (0.0-2.4); Troponin I <0.012 ng/mL (0.000-0.034)
[2016-08-17 18:33] LABS: Appearance,Urine Clear (Clear); Bilirubin,Urine Negative (Negative); Glucose,Urine (UA) Negative (Negative); Ketones,Urine Negative (Negative); Leukocyte Esterase,Urine Negative (Negative); Nitrite,Urine Negative (Negative); PH, Urine 6.5 (5.0-8.0); Protein,Urine Negative (Negative); Specific Gravity,Urine 1.004 (1.001-1.035); UA Billing (MACRO vs. MICRO) CHEM; Urobilinogen,Urine <2.0 mg/dL (<2.0)
[2016-08-17] MEDS ORDERED: diphenhydrAMINE 50 MG/ML 1 ML VIAL IVP STA (18:41)
[2016-08-17] MEDS ORDERED: methylPREDNISolone SOD SUCCI 125 MG/2 ML VIAL IV STA (18:41)
[2016-08-17] MEDS ORDERED: hydrOXYzine HCL 25 MG TAB PO STA (19:05)
== END 2016-08-17 19:21 | disposition home or self-care (01) ==
LOC: EC 17:09
DX: I95.1 Orthostatic hypotension (principal); E86.0 Dehydration; L29.9 Pruritus, unspecified; R21 Rash and other nonspecific skin eruption; M62.9 Disorder of muscle, unspecified; F17.200 Nicotine dependence, unspecified, uncomplicated; Z79.02 Long term (current) use of antithrombotics/antiplatelets; Z79.82 Long term (current) use of aspirin; Z88.0 Allergy status to penicillin; Z88.1 Allergy status to other antibiotic agents; Z88.2 Allergy status to sulfonamides; Z88.6 Allergy status to analgesic agent; Z88.8 Allergy status to other drugs, medicaments and biological substances; Z91.018 Allergy to other foods; Z91.09 Other allergy status, other than to drugs and biological substances; Z86.79 Personal history of other diseases of the circulatory system
CPT/HCPCS: 36415; 93005; 80053; 82550; 82553; 83735; 84484; 85025; 85610; 85730; 81003; 71020; 99285; 96374; 96375 ×2; 96361 ×2; J1200; J2930

== ENCOUNTER 2016-08-22 21:06 | Emergency (ER) | payer MEDICARE ==
[2016-08-22 21:11] VITALS: TEMP 98.6
[2016-08-22] MEDS ORDERED: diphenhydrAMINE 50 MG/ML 1 ML VIAL IM STA (22:40)
--- NOTE | 2016-08-22 22:42 | ED ---
Skin/Abscess/FB HPI - General Chief complaint: Skin/Abscess/Foreign Body Stated complaint: Rash/Back Time Seen by Provider: 08/22/16 22:14 Source: patient, RN notes reviewed Mode of arrival: EMS Limitations: no limitations - History of Present Illness Initial comments: Patient is a 66-year-old female presents to the emergency room for evaluation of rash. Patient has a history of Darier disease. Patient has been here multiple times regarding this rash. Patient's been placed on antibiotic, Benadryl, steroids, steroid cream, Benadryl cream. patient states nothing is working. Patient states she went to her primary care provider and they don't know what to do for her rash. Patient states she has still not followed up with a manual training teacher yet. Patient states the rash is extremely pruritic. Patient states none of the medications are helping her. Patient denies any new or worsening symptoms. Patient denies headache, dizziness, chest pain, shortness of breath, fevers, chills, nausea, vomiting, abdominal pain. - Related Data Home Medications Medication Instructions Recorded Confirmed Aspirin 81 mg PO DAILY 08/17/16 08/22/16 Clopidogrel Bisulfate [Plavix] 75 mg PO DAILY 08/17/16 08/22/16 Previous Rx's Medication Instructions Recorded diphenhydrAMINE [Benadryl] 25 mg PO QID PRN #40 capsule 08/17/16 hydrOXYzine HCL [Atarax] 25 mg PO QID PRN #40 tab 08/17/16 Allergies Allergy/AdvReac Type Severity Reaction Status Date / Time erythromycin base Allergy Rash/Hives Verified 08/22/16 22:13 [Erythromycin Base] etodolac [From Lodine] Allergy Rash/Hives Verified 08/22/16 22:13 flurazepam [From Dalmane] Allergy Rash/Hives Verified 08/22/16 22:13 Penicillins Allergy Rash/Hives Verified 08/22/16 22:13 pentazocine lactate Allergy Rash/Hives Verified 08/22/16 22:13 [From Talwin] secobarbital sodium Allergy Rash/Hives Verified 08/22/16 22:13 [From Seconal] Sulfa (Sulfonamide Allergy Rash/Hives Verified 08/22/16 22:13 Antibiotics) Bleach (Sodium Hypochlorite) AdvReac Rash/Hives Verified 08/22/16 22:13 oatmeal Allergy Rash/Hives Uncoded 08/22/16 21:11 Review of Systems ROS Statement: Those systems with pertinent positive or pertinent negative responses have been documented in the HPI. ROS Other: All systems not noted in ROS Statement are negative. Past Medical History Past Medical History: Coronary Artery Disease (CAD), Chest Pain / Angina, COPD, GERD/Reflux, Musculoskeletal Disorder Additional Past Medical History / Comment(s): Darier Disease, MS, RLS, bilateral legs cramp when walking long distances, UTI, DJD lumbar spine, pancreatitis History of Any Multi-Drug Resistant Organisms: MRSA Date of last positivie culture/infection: 09/05/2012 MDRO Source:: Urine Past Surgical History: Cholecystectomy, Heart Catheterization With Stent, Hernia Repair, Hysterectomy, Orthopedic Surgery Additional Past Surgical History / Comment(s): surgeries on left leg due to accident; Four lipomas removed from lower back; bunionectomy on left foot in August 2013, states, bowel prolapsed and they put back in place Past Anesthesia/Blood Transfusion Reactions: No Reported Reaction Additional Past Anesthesia/Blood Transfusion Reaction / Comment(s): . Date of Last Stent Placement:: 2011 Past Psychological History: Anxiety, Depression Smoking Status: Current every day smoker Past Alcohol Use History: None Reported Past Drug Use History: None Reported - Past Family History Father Family Medical History: No Reported History Additional Family Medical History / Comment(s): father at age 92 yrs. Mother Family Medical History: COPD Additional Family Medical History / Comment(s): Mother at age 62yrs. General Exam - General Exam Comments Initial Comments: sitting in exam room, no acute distress. Limitations: no limitations General appearance: alert, in no apparent distress Head exam: Present: atraumatic, normocephalic, normal inspection Eye exam: Present: normal appearance ENT exam: Present: normal exam Neck exam: Present: normal inspection Respiratory exam: Present: normal lung sounds bilaterally. Absent: respiratory distress Cardiovascular Exam: Present: regular rate, normal rhythm, normal heart sounds Back exam: Present: normal inspection Neurological exam: Present: alert, oriented X3, CN II-XII intact, normal gait Psychiatric exam: Present: normal affect, normal mood Skin exam: Present: warm. Absent: other (keratotic, crusted, raised, yellow/ red papules over chest, abdomen and bilateral arms) Course Vital Signs 08/22/16 08/22/16 21:07 23:12 Temperature 98.6 F Pulse Rate 88 84 Respiratory 20 18 Rate Blood Pressure 127/86 144/74 O2 Sat by Pulse 96 99 Oximetry Medical Decision Making - Medical Decision Making patient is a 66-year-old female presents to the emergency room for evaluation of rash. Patient's been here multiple times regarding this rash. Patient has not followed up with a manual training teacher. Explained to patient that we have exhausted all medications to possibly give her for this rash and strongly advised her to follow-up with a manual training teacher. Patient given Benadryl here and discharged home. Patient states she understands everything that was discussed with her. Return parameters discussed. Case discussed Dr. Chua. Disposition Clinical Impression: Dermatitis Disposition: HOME SELF-CARE Condition: Good Instructions: Dermatitis (ED) Additional Instructions: Please follow-up with a manual training teacher for further evaluation and treatment. If any new symptom arises or symptoms worsen, return to ER as soon as possible. Referrals: Micky Nunn MD [Primary Care Provider] - 1-2 days Arianna Hyde MD [STAFF PHYSICIAN] - 1-2 days Time of Disposition: 22:41
[2016-08-22 23:13] VITALS: BP 144/74; PULSE 84; RESP 18
== END 2016-08-22 23:17 | disposition home or self-care (01) ==
LOC: EC 21:06
DX: L30.9 Dermatitis, unspecified (principal); M62.9 Disorder of muscle, unspecified; Z79.02 Long term (current) use of antithrombotics/antiplatelets; Z79.82 Long term (current) use of aspirin; F17.200 Nicotine dependence, unspecified, uncomplicated; Z88.0 Allergy status to penicillin; Z88.1 Allergy status to other antibiotic agents; Z88.2 Allergy status to sulfonamides; Z88.5 Allergy status to narcotic agent; Z88.6 Allergy status to analgesic agent; Z88.8 Allergy status to other drugs, medicaments and biological substances; Z91.018 Allergy to other foods; Z91.09 Other allergy status, other than to drugs and biological substances
CPT/HCPCS: 99283; 96372; J1200

== ENCOUNTER 2016-08-31 13:44 | Inpatient (IN) | payer MEDICARE ==
[2016-08-31] MEDS ORDERED: SODIUM CHLORIDE 0.9% 500 ML IV STA (13:51)
[2016-08-31] MEDS ORDERED: SODIUM CHLORIDE 0.9% 1,000 ML IV STA ×2 (13:52→14:22)
--- NOTE | 2016-08-31 13:55 | ED ---
Overdose HPI - General Stated Complaint: Poss Overdose/Mental Health Time Seen by Provider: 08/31/16 13:44 Source: patient, EMS, RN notes reviewed, old records reviewed Mode of arrival: EMS - History of Present Illness Initial Comments: This is a 66-year-old female with a history of hypertension bipolar disorder and Derriers dz states is feeling depressed and desponded and did take 11 or 12 5 mg Norvasc tablets while 30 mg prior to arrival. She denies any other drug or alcohol use. He does state that she smokes still. She denies any other complaints at this time. She was brought in by EMS. Both her blood pressure and vital signs otherwise stable. MD Complaint: intentional overdose - Related Data Home Medications Medication Instructions Recorded Confirmed amLODIPine [Norvasc] 55 mg PO ONCE 08/31/16 08/31/16 Allergies Allergy/AdvReac Type Severity Reaction Status Date / Time erythromycin base Allergy Rash/Hives Verified 08/31/16 14:28 [Erythromycin Base] etodolac [From Lodine] Allergy Rash/Hives Verified 08/31/16 14:28 flurazepam [From Dalmane] Allergy Rash/Hives Verified 08/31/16 14:28 Penicillins Allergy Rash/Hives Verified 08/31/16 14:28 pentazocine lactate Allergy Rash/Hives Verified 08/31/16 14:28 [From Talwin] secobarbital sodium Allergy Rash/Hives Verified 08/31/16 14:28 [From Seconal] Sulfa (Sulfonamide Allergy Rash/Hives Verified 08/31/16 14:28 Antibiotics) Bleach (Sodium Hypochlorite) AdvReac Rash/Hives Verified 08/31/16 14:28 oatmeal Allergy Rash/Hives Uncoded 08/22/16 21:11 Review of Systems ROS Statement: Those systems with pertinent positive or pertinent negative responses have been documented in the HPI. ROS Other: All systems not noted in ROS Statement are negative. Past Medical History Past Medical History: Coronary Artery Disease (CAD), Chest Pain / Angina, COPD, GERD/Reflux, Musculoskeletal Disorder Additional Past Medical History / Comment(s): Darier Disease, MS, RLS, bilateral legs cramp when walking long distances, UTI, DJD lumbar spine, pancreatitis History of Any Multi-Drug Resistant Organisms: MRSA Date of last positivie culture/infection: 09/05/2012 MDRO Source:: Urine Past Surgical History: Cholecystectomy, Heart Catheterization With Stent, Hernia Repair, Hysterectomy, Orthopedic Surgery Additional Past Surgical History / Comment(s): surgeries on left leg due to accident; Four lipomas removed from lower back; bunionectomy on left foot in August 2013, states, bowel prolapsed and they put back in place Past Anesthesia/Blood Transfusion Reactions: No Reported Reaction Additional Past Anesthesia/Blood Transfusion Reaction / Comment(s): . Date of Last Stent Placement:: 2011 Past Psychological History: Anxiety, Depression Smoking Status: Current every day smoker Past Alcohol Use History: None Reported Past Drug Use History: None Reported - Past Family History Father Family Medical History: No Reported History Additional Family Medical History / Comment(s): father at age 92 yrs. Mother Family Medical History: COPD Additional Family Medical History / Comment(s): Mother at age 62yrs. General Exam - General Exam Comments Initial Comments: This is a well-developed well-nourished awake alert oriented 3 female General appearance: alert, in no apparent distress Head exam: Present: atraumatic, normocephalic, normal inspection Eye exam: Present: normal appearance, PERRL, EOMI. Absent: scleral icterus, conjunctival injection, periorbital swelling ENT exam: Present: normal exam, mucous membranes moist Neck exam: Present: normal inspection. Absent: tenderness, meningismus, lymphadenopathy Respiratory exam: Present: normal lung sounds bilaterally. Absent: respiratory distress, wheezes, rales, rhonchi, stridor Cardiovascular Exam: Present: regular rate, normal rhythm, normal heart sounds. Absent: systolic murmur, diastolic murmur, rubs, gallop, clicks GI/Abdominal exam: Present: soft, normal bowel sounds. Absent: distended, tenderness, guarding, rebound, rigid Extremities exam: Present: normal inspection, full ROM, normal capillary refill. Absent: tenderness, pedal edema, joint swelling, calf tenderness Back exam: Present: normal inspection Neurological exam: Present: alert, oriented X3, CN II-XII intact Psychiatric exam: Present: normal affect, normal mood Skin exam: Present: warm, dry, intact, other (There is a rash present over the anterior chest wall extremities consistent with the patient's stated disease). Absent: rash Course Vital Signs 08/31/16 08/31/16 08/31/16 13:56 14:08 14:30 Temperature 99 F Pulse Rate 78 60 70 Respiratory 18 18 Rate Blood Pressure 159/69 121/65 112/70 O2 Sat by Pulse 95 99 Oximetry 08/31/16 08/31/16 15:18 15:26 Temperature Pulse Rate 71 71 Respiratory 18 18 Rate Blood Pressure 117/67 139/78 O2 Sat by Pulse 71 L 100 Oximetry - Reevaluation(s) Reevaluation #1: 08/31/16 15:12 Patient was reevaluated by me she does maintain normal vital signs at this time. She denies any complaints at this time. Reevaluation #2: 08/31/16 15:39 The patient remains hemodynamically stable. Medical Decision Making - Medical Decision Making I did discuss the findings with the hospitalist. Poison control recommends observation for at least 8 hours. Patient will be admitted for observation with psychiatric consultation. - Lab Data Result diagrams: 08/31/16 13:59 08/31/16 13:59 Lab Results 08/31/16 08/31/16 08/31/16 Range/Units 13:59 13:59 13:59 WBC 9.0 (3.8-10.6) k/uL RBC 4.63 (3.80-5.40) m/uL Hgb 14.6 (11.4-16.0) gm/dL Hct 44.1 (34.0-46.0) % MCV 95.3 (80.0-100.0) fL MCH 31.6 (25.0-35.0) pg MCHC 33.2 (31.0-37.0) g/dL RDW 13.0 (11.5-15.5) % Plt Count 376 (150-450) k/uL Neutrophils % 69 % Lymphocytes % 20 % Monocytes % 6 % Eosinophils % 3 % Basophils % 1 % Neutrophils # 6.2 (1.3-7.7) k/uL Lymphocytes # 1.8 (1.0-4.8) k/uL Monocytes # 0.6 (0-1.0) k/uL Eosinophils # 0.3 (0-0.7) k/uL Basophils # 0.1 (0-0.2) k/uL PT (9.0-12.0) sec INR (<1.1) Sodium 143 (137-145) mmol/L Potassium 4.0 (3.5-5.1) mmol/L Chloride 109 H (98-107) mmol/L Carbon Dioxide 23 (22-30) mmol/L Anion Gap 11 mmol/L BUN 11 (7-17) mg/dL Creatinine 0.74 (0.52-1.04) mg/dL Est GFR (MDRD) Af Amer >60 (>60 ml/min/1.73 sqM) Est GFR (MDRD) Non-Af >60 (>60 ml/min/1.73 sqM) Glucose 118 H (74-99) mg/dL POC Glucose (mg/dL) (75-99) mg/dL POC Glu Ladle Builder ID Calcium 9.2 (8.4-10.2) mg/dL Magnesium 1.8 (1.6-2.3) mg/dL Total Bilirubin 0.5 (0.2-1.3) mg/dL AST 32 (14-36) U/L ALT 22 (9-52) U/L Alkaline Phosphatase 89 (38-126) U/L Total Creatine Kinase 157 H (30-135) U/L CK-MB (CK-2) 1.1 (0.0-2.4) ng/mL CK-MB (CK-2) Rel Index 0.7 Troponin I <0.012 (0.000-0.034) ng/mL Total Protein 7.4 (6.3-8.2) g/dL Albumin 3.9 (3.5-5.0) g/dL Amylase 120 H (30-110) U/L Lipase 318 H (23-300) U/L Urine Color Urine Appearance (Clear) Urine pH (5.0-8.0) Ur Specific [place] (1.001-1.035) Urine Protein (Negative) Urine Glucose (UA) (Negative) Urine Ketones (Negative) Urine Blood (Negative) Urine Nitrite (Negative) Urine Bilirubin (Negative) Urine Urobilinogen (<2.0) mg/dL Ur Leukocyte Esterase (Negative) Salicylates <1.0 mg/dL Urine Opiates Screen (NotDetected) Ur Oxycodone Screen (NotDetected) Urine Methadone Screen (NotDetected) Ur Propoxyphene Screen (NotDetected) Acetaminophen <10.0 ug/mL Ur Barbiturates Screen (NotDetected) U Tricyclic Antidepress (NotDetected) Ur Phencyclidine Scrn (NotDetected) Ur Amphetamines Screen (NotDetected) U Methamphetamines Scrn (NotDetected) U Benzodiazepines Scrn (NotDetected) Urine Cocaine Screen (NotDetected) U Marijuana (THC) Screen (NotDetected) Serum Alcohol <10 mg/dL 08/31/16 08/31/16 08/31/16 Range/Units 13:59 14:07 14:27 WBC (3.8-10.6) k/uL RBC (3.80-5.40) m/uL Hgb (11.4-16.0) gm/dL Hct (34.0-46.0) % MCV (80.0-100.0) fL MCH (25.0-35.0) pg MCHC (31.0-37.0) g/dL RDW (11.5-15.5) % Plt Count (150-450) k/uL Neutrophils % % Lymphocytes % % Monocytes % % Eosinophils % % Basophils % % Neutrophils # (1.3-7.7) k/uL Lymphocytes # (1.0-4.8) k/uL Monocytes # (0-1.0) k/uL Eosinophils # (0-0.7) k/uL Basophils # (0-0.2) k/uL PT 10.5 (9.0-12.0) sec INR 1.0 (<1.1) Sodium (137-145) mmol/L Potassium (3.5-5.1) mmol/L Chloride (98-107) mmol/L Carbon Dioxide (22-30) mmol/L Anion Gap mmol/L BUN (7-17) mg/dL Creatinine (0.52-1.04) mg/dL Est GFR (MDRD) Af Amer (>60 ml/min/1.73 sqM) Est GFR (MDRD) Non-Af (>60 ml/min/1.73 sqM) Glucose (74-99) mg/dL POC Glucose (mg/dL) 104 H (75-99) mg/dL POC Glu Ladle Builder ID Bowling, Marimar Calcium (8.4-10.2) mg/dL Magnesium (1.6-2.3) mg/dL Total Bilirubin (0.2-1.3) mg/dL AST (14-36) U/L ALT (9-52) U/L Alkaline Phosphatase (38-126) U/L Total Creatine Kinase (30-135) U/L CK-MB (CK-2) (0.0-2.4) ng/mL CK-MB (CK-2) Rel Index Troponin I (0.000-0.034) ng/mL Total Protein (6.3-8.2) g/dL Albumin (3.5-5.0) g/dL Amylase (30-110) U/L Lipase (23-300) U/L Urine Color Yellow Urine Appearance Clear (Clear) Urine pH 6.0 (5.0-8.0) Ur Specific [place] 1.014 (1.001-1.035) Urine Protein Negative (Negative) Urine Glucose (UA) Negative (Negative) Urine Ketones Negative (Negative) Urine Blood Negative (Negative) Urine Nitrite Negative (Negative) Urine Bilirubin Negative (Negative) Urine Urobilinogen 2.0 (<2.0) mg/dL Ur Leukocyte Esterase Negative (Negative) Salicylates mg/dL Urine Opiates Screen Not Detected (NotDetected) Ur Oxycodone Screen Not Detected (NotDetected) Urine Methadone Screen Not Detected (NotDetected) Ur Propoxyphene Screen Not Detected (NotDetected) Acetaminophen ug/mL Ur Barbiturates Screen Not Detected (NotDetected) U Tricyclic Antidepress Not Detected (NotDetected) Ur Phencyclidine Scrn Not Detected (NotDetected) Ur Amphetamines Screen Not Detected (NotDetected) U Methamphetamines Scrn Not Detected (NotDetected) U Benzodiazepines Scrn Not Detected (NotDetected) Urine Cocaine Screen Not Detected (NotDetected) U Marijuana (THC) Screen Not Detected (NotDetected) Serum Alcohol mg/dL - EKG Data -: EKG Interpreted by Nc EKG shows normal: sinus rhythm (Normal sinus rhythm a rate of 81. Interval 126 QRS duration 80 QT/QTC of 384/446 nonspecific septal configuration) - Radiology Data Radiology results: report reviewed (Imaging studies reveal no acute findings.), image reviewed Critical Care Time Critical Care Time: Yes Critical Care Time: 31 minutes of critical care time which includes initial presentation of the EMS run and discussed with paramedics history physical labs x-rays of the patient reevaluation patient several occasions. Discussion with the admitting service. Initial orders and documentation of the above. Review of old charting. Disposition Clinical Impression: Drug overdose, intentional, Depression, Suicidal ideation Disposition: ADMITTED IP TO THIS HOSP Condition: Stable Referrals: Micky Nunn MD [Primary Care Provider] - 1-2 days
[2016-08-31 14:13] LABS: Basophils # (A) 0.1 k/uL (0-0.2); Basophils % (A) 1 %; CH 31.3; Eosinophils # (A) 0.3 k/uL (0-0.7); Eosinophils % (A) 3 %; HCT 44.1 % (34.0-46.0); HDW 2.23; HGB 14.6 gm/dL (11.4-16.0); Luc # (Auto) 0.14; Luc % (Auto) 2; Lymphocytes # (A) 1.8 k/uL (1.0-4.8); Lymphocytes % (A) 20 %; MCH 31.6 pg (25.0-35.0); MCHC 33.2 g/dL (31.0-37.0); MCV 95.3 fL (80.0-100.0); Mean Platelet Volume 7.5; Monocytes # (A) 0.6 k/uL (0-1.0); Monocytes % (A) 6 %; Neutrophils # (A) 6.2 k/uL (1.3-7.7); Neutrophils % (A) 69 %; RBC 4.63 m/uL (3.80-5.40); WBC (Perox) 8.39
[2016-08-31 14:13] LABS: Appearance,Urine Clear (Clear); Bilirubin,Urine Negative (Negative); Glucose,Urine (UA) Negative (Negative); Ketones,Urine Negative (Negative); Leukocyte Esterase,Urine Negative (Negative); Nitrite,Urine Negative (Negative); Protein,Urine Negative (Negative); Specific Gravity,Urine 1.014 (1.001-1.035); UA Billing (MACRO vs. MICRO) CHEM
--- NOTE | 2016-08-31 14:20 | XR ---
EXAMINATION TYPE: XR chest 1V portable DATE OF EXAM: 08/31/2016 Comparison: 08/17/2016 Clinical History: 66-year-old female with pain Findings: Slight leftward patient rotation alters the normal cardia mediastinal contours. Heart appears normal size. Atherosclerotic arch calcifications. Mild diffuse interstitial prominence and mild hyperinflati on. Strandy atelectasis or scarring at the lung bases. No consolidation or pleural effusion. Impression: Chronic changes, possible underlying COPD. No acute process seen.
[2016-08-31 14:23] LABS: ALT 22 U/L (9-52); AST 32 U/L (14-36); Acetaminophen <10.0 ug/mL; Alcohol <10 mg/dL; Alkaline Phosphatase 89 U/L (38-126); Amylase 120 U/L (30-110); Anion Gap 11 mmol/L; Blood Urea Nitrogen 11 mg/dL (7-17); Calcium 9.2 mg/dL (8.4-10.2); Carbon Dioxide 23 mmol/L (22-30); Chloride 109 mmol/L (98-107); Glucose 118 mg/dL (74-99); Magnesium 1.8 mg/dL (1.6-2.3); Non-African American GFR(MDRD) >60 (>60 ml/min/1.73 sqM); Salicylate <1.0 mg/dL; Sodium 143 mmol/L (137-145); Total Bilirubin 0.5 mg/dL (0.2-1.3); Total Protein 7.4 g/dL (6.3-8.2)
[2016-08-31 14:26] LABS: Prothrombin Time 10.5 sec (9.0-12.0)
[2016-08-31 14:31] LABS: Glucose,Whole Blood 104 mg/dL (75-99)
[2016-08-31 14:37] LABS: Creatine Kinase 157 U/L (30-135)
[2016-08-31 14:50] LABS: Creatine Kinase MB 1.1 ng/mL (0.0-2.4); Troponin I <0.012 ng/mL (0.000-0.034)
[2016-08-31] MEDS ORDERED: NALOXONE 0.4 MG/ML 1 ML VIAL IV PRN (15:44)
[2016-08-31 16:53] LABS: Glucose,Whole Blood 84 mg/dL (75-99)
[2016-08-31 17:07] VITALS: BMI 20.5
[2016-08-31] MEDS: DEXTROSE 5%-0.45% NACL 1,000 ML IV SCH (17:57)
--- NOTE | 2016-08-31 18:51 | P.HPIM ---
<Jessy Nevarez A - Last Filed: 08/31/16 21:38> History of Present Illness H&P Date: 08/31/16 Chief Complaint: Attempted suicide This is a 66-year-old patient with an extensive medical history who follows with visiting physician, Dr. Nunn. Patient chronic stable medical conditions include COPD, GERD, hyperlipidemia, osteoarthritis, remote history of MS, restless leg syndrome, depression. Patient also has a legal guardian her name is Cece. 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 Patient states that today she was just tired of "the whole thing" and she was sick of her guardian not meeting what she believed to be her needs both financially and around her home. She decided that she just didn't want to live anymore and took a handful of amlodipine. She was was in fact trying to kill herself, although when speaking to her a few hours after the incident, she is quite perky, recognizes what she did was not the best way to handle things. Review of Systems All systems: negative Eyes: denies blurred vision, denies pain Ears, nose, mouth and throat: Denies headache, Denies sore throat Cardiovascular: Denies chest pain, Denies shortness of breath Respiratory: Denies cough Gastrointestinal: Denies abdominal pain, Denies diarrhea, Denies nausea, Denies vomiting Genitourinary: Denies dysuria, Denies hematuria Musculoskeletal: Denies myalgias Integumentary: Denies pruritus, Denies rash Neurological: Denies numbness, Denies weakness Psychiatric: Denies anxiety, Denies depression Endocrine: Denies fatigue, Denies weight change Past Medical History Past Medical History: Coronary Artery Disease (CAD), Chest Pain / Angina, COPD, GERD/Reflux, Musculoskeletal Disorder Additional Past Medical History / Comment(s): Darier Disease, MS, RLS, bilateral legs cramp when walking long distances, UTI, DJD lumbar spine, pancreatitis History of Any Multi-Drug Resistant Organisms: MRSA Date of last positivie culture/infection: 09/05/2012 MDRO Source:: Urine Past Surgical History: Cholecystectomy, Heart Catheterization With Stent, Hernia Repair, Hysterectomy, Orthopedic Surgery Additional Past Surgical History / Comment(s): surgeries on left leg due to accident; Four lipomas removed from lower back; bunionectomy on left foot in August 2013, states, bowel prolapsed and they put back in place Past Anesthesia/Blood Transfusion Reactions: No Reported Reaction Additional Past Anesthesia/Blood Transfusion Reaction / Comment(s): . Date of Last Stent Placement:: 2011 Past Psychological History: Anxiety, Depression Additional Psychological History / Comment(s): She is independent. reports having a Legal Gaurdian. She uses no assistive device. She does not drive. patient denies depression but found in old history Smoking Status: Current every day smoker Past Alcohol Use History: None Reported Past Drug Use History: None Reported - Past Family History Father Family Medical History: No Reported History Additional Family Medical History / Comment(s): father at age 92 yrs. Mother Family Medical History: COPD Additional Family Medical History / Comment(s): Mother at age 62yrs. Medications and Allergies Home Medications Medication Instructions Recorded Confirmed Type amLODIPine [Norvasc] 55 mg PO ONCE 08/31/16 08/31/16 History Allergies Allergy/AdvReac Type Severity Reaction Status Date / Time erythromycin base Allergy Rash/Hives Verified 08/31/16 14:28 [Erythromycin Base] etodolac [From Lodine] Allergy Rash/Hives Verified 08/31/16 14:28 flurazepam [From Dalmane] Allergy Rash/Hives Verified 08/31/16 14:28 Penicillins Allergy Rash/Hives Verified 08/31/16 14:28 pentazocine lactate Allergy Rash/Hives Verified 08/31/16 14:28 [From Talwin] secobarbital sodium Allergy Rash/Hives Verified 08/31/16 14:28 [From Seconal] Sulfa (Sulfonamide Allergy Rash/Hives Verified 08/31/16 14:28 Antibiotics) Bleach (Sodium Hypochlorite) AdvReac Rash/Hives Verified 08/31/16 14:28 oatmeal Allergy Rash/Hives Uncoded 08/22/16 21:11 Physical Exam Vitals: Vital Signs Temp Pulse Pulse Resp BP BP Pulse Ox 08/31/16 16:17 99 F 71 18 101/58 94 L 08/31/16 16:10 71 18 101/58 94 L 08/31/16 15:26 71 18 139/78 100 08/31/16 15:18 71 18 117/67 71 L 08/31/16 14:30 70 112/70 99 08/31/16 14:18 98.7 F 73 16 101/58 92 L 08/31/16 14:08 60 18 121/65 08/31/16 13:56 99 F 78 18 159/69 95 Intake and Output 08/31/16 08/31/16 08/31/16 06:59 14:59 22:59 Intake Total 1100 Balance 1100 Intake: Amount of Fluid Infused ( 1100 ml) Other: Voiding Method Toilet Weight 52.4 kg 52.4 kg Patient Weight 09/01/16 06:59 Weight 52.4 kg VITAL SIGNS: [Temperature 99.0, pulse 71, respiratory rate 18, blood pressure 101/58, oxygen saturation 94% on 2 L. BMI noted] GENERAL: [Average built, lying in bed, comfortable]. EYES: [Pupils equal. Conjunctiva ronen]l. HEENT: [External appearance of nose and ears normal, oral cavity grossly normal] . NECK: [JVD not raised; masses not palpable]. HEART: [First and second heart sounds are normal; no edema]. LUNGS:[ Respiratory rate normal; clear to auscultation]. ABDOMEN: [Soft, nontender, liver spleen not palpable, no masses palpable]. LYMPHATICS: [No lymph nodes palpable in the axilla and neck]. PSYCH: [Alert and oriented x3; mood and affect ronen]l. DERMATOLOGICAL: Multiple reddened raised welts to back and neck, patient is notably scratching at her skin, appears dry. NEUROLOGICAL: [Cranial nerves grossly intact; no facial asymmetry, power and sensation grossly intact]. Results CBC & Chem 7: 08/31/16 13:59 08/31/16 13:59 Labs: Abnormal Lab Results - Last 24 Hours (Table) 08/31/16 08/31/16 08/31/16 Range/Units 13:59 13:59 14:27 Chloride 109 H (98-107) mmol/L Glucose 118 H (74-99) mg/dL POC Glucose (mg/dL) 104 H (75-99) mg/dL Total Creatine Kinase 157 H (30-135) U/L Amylase 120 H (30-110) U/L Lipase 318 H (23-300) U/L Chest x-ray: report reviewed (Chronic changes possible underlying COPD. No acute process seen.) Thrombosis Risk Factor Assmnt - Choose All That Apply Each Risk Factor Represents 2 Points: Age 61-74 years Thrombosis Risk Factor Assessment Total Risk Factor Score: 2 Thrombosis Risk Factor Assessment Level: Low Risk Assessment and Plan Plan: ASSESSMENT: -Acute intentional overdose of medication ingested about 11 or 12 Norvasc tablets about 30 minutes before being brought in via EMS -Suicidal ideation, for which patient initiated a plan of action. 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 -Coronary artery disease with prior history of stent. -Chronic nicotine dependence. Patient active cigarette smoker. -Essential hypertension -Primary osteoarthritis of multiple joints, bilateral. -Chronic restless leg syndrome. -Depression not otherwise specified. -Darier disease causing persistent severe itching PLAN: Continue close monitoring of patient per poison control criterion. Sitter at the bedside for suicide precautions. Home meds reviewed and reordered. DVT prophylaxis initiated. Psychiatry consulted, once medically cleared patient will be seen by them and transferred to psychiatric unit. We'll continue to monitor closely. <Toni Carter - Last Filed: 08/31/16 21:42> Physical Exam Vitals: Vital Signs Temp Pulse Pulse Resp BP BP Pulse Ox 08/31/16 19:13 98.4 F 74 18 117/65 95 08/31/16 16:17 99 F 71 18 101/58 94 L 08/31/16 16:10 71 18 101/58 94 L 08/31/16 15:26 71 18 139/78 100 08/31/16 15:18 71 18 117/67 71 L 08/31/16 14:30 70 112/70 99 08/31/16 14:18 98.7 F 73 16 101/58 92 L 08/31/16 14:08 60 18 121/65 08/31/16 13:56 99 F 78 18 159/69 95 Intake and Output 08/31/16 08/31/16 08/31/16 06:59 14:59 22:59 Intake Total 1100 Balance 1100 Intake: Amount of Fluid Infused ( 1100 ml) Other: Voiding Method Toilet Weight 52.4 kg 52.4 kg Patient Weight 09/01/16 06:59 Weight 52.4 kg Results CBC & Chem 7: 08/31/16 13:59 08/31/16 13:59 Labs: Abnormal Lab Results - Last 24 Hours (Table) 08/31/16 08/31/16 08/31/16 Range/Units 13:59 13:59 14:27 Chloride 109 H (98-107) mmol/L Glucose 118 H (74-99) mg/dL POC Glucose (mg/dL) 104 H (75-99) mg/dL Total Creatine Kinase 157 H (30-135) U/L Amylase 120 H (30-110) U/L Lipase 318 H (23-300) U/L 08/31/16 Range/Units 20:17 Chloride (98-107) mmol/L Glucose (74-99) mg/dL POC Glucose (mg/dL) 115 H (75-99) mg/dL Total Creatine Kinase (30-135) U/L Amylase (30-110) U/L Lipase (23-300) U/L Assessment and Plan Plan: Attending note. Date of service-08/31/16 This patient was seen and examined by me today. I reviewed the note of my nurse practitioner, Ms. Nevarez. Discussed with her, additional findings as below. This is a 66-year-old patient of Dr. nunn from visiting physician. Patient took about 10 or 12 tablets of amlodipine and intention of killing herself. This was around none today. It is also not allowed that patient stopping all other medications as she does not feel like taking it. Now patient feels stupid about it that she wants to live on life. On examination: Pulse 74, blood pressure 117/65 Lungs-decreased breath sounds, prolonged expiration and wheezing Psych-alert oriented 3, hyper, anxious appearing Investigations: White count 9 hemoglobin 14.6 potassium 4 Assessment: -Severe depression with suicidal ideation with overdose of amlodipine. Given that amlodipine is a long-acting drug will not keep her close eye on hemodynamics for about 24 hours, with frequent blood pressure monitoring. -COPD in a current smoker. Patient has a sitter. Psychiatry is being consulted.
[2016-08-31 20:21] LABS: Glucose,Whole Blood 115 mg/dL (75-99)
[2016-08-31] MEDS: diphenhydrAMINE 50 MG/ML 1 ML VIAL IVP PRN (20:55)
[2016-09-01 06:59] LABS: Glucose,Whole Blood 91 mg/dL (75-99)
[2016-09-01] MEDS: DEXTROSE 5%-0.45% NACL 1,000 ML IV SCH (07:47)
[2016-09-01] MEDS: diphenhydrAMINE 50 MG/ML 1 ML VIAL IVP PRN ×2 (08:36→14:09)
[2016-09-01 12:12] LABS: Glucose,Whole Blood 124 mg/dL (75-99)
--- NOTE | 2016-09-01 16:28 | P.DS ---
Providers Date of admission: 09/01/16 11:51 Expected date of discharge: 09/01/16 Attending physician: Toni Carter Consults: 08/31/16 15:45 Consult Physician Routine Consulting Provider: Elizabeth Redmond Consult Reason/Comments: Drug overdose, depression, suicidal ideation Do you want consulting provider notified?: Yes Primary care physician: Micky Doctors Hospital Course: This is a 66-year-old patient with an extensive medical history who follows with visiting physician, Dr. Nunn. Patient chronic stable medical conditions include COPD, GERD, hyperlipidemia, osteoarthritis, remote history of MS, restless leg syndrome, depression. Patient also has a legal guardian her name is Cece. 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 Patient states that today she was just tired of "the whole thing" and she was sick of her guardian not meeting what she believed to be her needs both financially and around her home. She decided that she just didn't want to live anymore and took a handful of amlodipine. She was was in fact trying to kill herself, although when speaking to her a few hours after the incident, she is quite perky, recognizes what she did was not the best way to handle things. Patient is overall stable. Tolerating a diet. She has agreed to go down to the psychiatry unit. Accepted by the on-call psychiatrist to get transit. Blood pressure was monitored it remained stable. Physical examination: Lungs slightly decreased breath sounds, psych AO 3 anxious appearing Final diagnoses: -Acute intentional overdose of medication ingested about 11 or 12 Norvasc tablets about 30 minutes before being brought in via EMS -Suicidal ideation, for which patient initiated a plan of action. 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 -Coronary artery disease with prior history of stent. -Chronic nicotine dependence. Patient active cigarette smoker. -Essential hypertension -Primary osteoarthritis of multiple joints, bilateral. -Chronic restless leg syndrome. -Depression not otherwise specified. -Darier disease causing persistent severe itching Patient Condition at Discharge: Stable Plan - Discharge Summary New Discharge Prescriptions: New Aspirin 81 mg PO DAILY #1 chewable diphenhydrAMINE [Benadryl] 25 mg PO QID PRN #1 capsule PRN Reason: pruritus Discontinued amLODIPine [Norvasc] 55 mg PO ONCE Discharge Medication List Aspirin 81 mg PO DAILY #1 chewable 09/01/16 [Rx] diphenhydrAMINE [Benadryl] 25 mg PO QID PRN #1 capsule 09/01/16 [Rx] Follow up Appointment(s)/Referral(s): Micky Nunn MD [Primary Care Provider] - As Needed Discharge Disposition: TRANSFER TO PSYCH HOSP/UNIT
[2016-09-01 16:29] VITALS: BP 102/59
[2016-09-01 16:49] LABS: Glucose,Whole Blood 129 mg/dL (75-99)
[2016-09-01 17:04] VITALS: PULSE 64; RESP 14; TEMP 98
== END 2016-09-01 17:57 | DRG 918 ==
LOC: EC 13:44 → 3OBS 15:44 → OBSVTOIN 09-01 11:51
PROVIDERS: ADMIT Hospitalist; ATTEND Hospitalist
DX: T46.1X2A Poisoning by calcium-channel blockers, intentional self-harm, initial encounter (principal); G35 Multiple sclerosis; J44.9 Chronic obstructive pulmonary disease, unspecified; I10 Essential (primary) hypertension; T14.91 Suicide attempt; M47.816 Spondylosis without myelopathy or radiculopathy, lumbar region; F32.9 Major depressive disorder, single episode, unspecified; I25.10 Atherosclerotic heart disease of native coronary artery without angina pectoris; K21.9 Gastro-esophageal reflux disease without esophagitis; E78.5 Hyperlipidemia, unspecified; L29.9 Pruritus, unspecified; F41.9 Anxiety disorder, unspecified; G25.81 Restless legs syndrome; F17.210 Nicotine dependence, cigarettes, uncomplicated; Z90.49 Acquired absence of other specified parts of digestive tract; Z90.710 Acquired absence of both cervix and uterus; Z87.828 Personal history of other (healed) physical injury and trauma; Z79.899 Other long term (current) drug therapy; Z82.5 Family history of asthma and other chronic lower respiratory diseases; Z87.440 Personal history of urinary (tract) infections; Z88.1 Allergy status to other antibiotic agents; Z88.5 Allergy status to narcotic agent; Z88.0 Allergy status to penicillin; Z88.2 Allergy status to sulfonamides; Z88.8 Allergy status to other drugs, medicaments and biological substances; Z91.018 Allergy to other foods; Z95.5 Presence of coronary angioplasty implant and graft; Z86.14 Personal history of Methicillin resistant Staphylococcus aureus infection; Z87.19 Personal history of other diseases of the digestive system
CPT/HCPCS: 36415; 71010; 80053; 80306; 80320; 81003; 82075; 82150; 82550; 82553; 83520; 83690; 83735; 84484; 85025; 85610; 93005; 96360; 96361; 99291

== ENCOUNTER 2016-09-01 10:47 | Inpatient (IN) | payer MEDICARE ==
[2016-09-01] MEDS ORDERED: MAGNESIUM HYDROXIDE 2,400 MG/10 ML CUP PO PRN (11:45)
[2016-09-01] MEDS ORDERED: MAG HYDROX/AL HYDROX/SIMETH 30 ML CUP PO PRN (11:45)
[2016-09-01] MEDS ORDERED: ACETAMINOPHEN TAB 325 MG TAB PO PRN (11:45)
[2016-09-01] MEDS: diphenhydrAMINE 25 MG CAP PO PRN (20:14)
[2016-09-02] MEDS: NICOTINE 21MG/24HR PATCH TRANSDERM SCH (08:50)
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
--- NOTE | 2016-09-02 14:57 | P.CONS ---
History of Present Illness - Reason for Consult Consult date: 09/02/16 Medical management Requesting physician: Elizabeth Redmond - Chief Complaint Depression - History of Present Illness This is a 66-year-old patient with an extensive medical history who follows with visiting physician, Dr. Nunn. Patient chronic stable medical conditions include COPD, GERD, hyperlipidemia, osteoarthritis, remote history of MS, restless leg syndrome, depression. Patient also has a legal guardian her name is Cece. 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 Patient states that today she was just tired of "the whole thing" and she was sick of her guardian not meeting what she believed to be her needs both financially and around her home. She decided that she just didn't want to live anymore and took a handful of amlodipine. Patient was monitored for 24 hours for a blood pressure and then found to be stable she was transferred to the psychiatry unit unit/3 W. No new issues. Patient is on Benadryl for her persistent long-standing itching and feels better controlled. It may be noted that patient stopped a lot of her medications as she felt she didn't need it. Review of Systems GEN.: None EYES: None HEENT: None NECK: None RESPIRATORY: Occasional cough CARDIOVASCULAR: None GASTROINTESTINAL: None GENITOURINARY: None MUSCULOSKELETAL: None LYMPHATICS: None HEMATOLOGICAL: None PSYCHIATRY: Anxious NEUROLOGICAL: None DERMATOLOGICAL: Itching Past Medical History Past Medical History: Coronary Artery Disease (CAD), Chest Pain / Angina, COPD, GERD/Reflux, Musculoskeletal Disorder Additional Past Medical History / Comment(s): Darier Disease, MS, RLS, bilateral legs cramp when walking long distances, UTI, DJD lumbar spine, pancreatitis History of Any Multi-Drug Resistant Organisms: MRSA Year Discovered:: 09/05/2012 MDRO Source:: Urine Past Surgical History: Cholecystectomy, Heart Catheterization With Stent, Hernia Repair, Hysterectomy, Orthopedic Surgery Additional Past Surgical History / Comment(s): surgeries on left leg due to accident; Four lipomas removed from lower back; bunionectomy on left foot in August 2013, states, bowel prolapsed and they put back in place Past Anesthesia/Blood Transfusion Reactions: No Reported Reaction Additional Past Anesthesia/Blood Transfusion Reaction / Comm: . Date of Last Stent Placement:: 2011 Past Psychological History: Anxiety, Depression Additional Psychological History / Comment(s): She is independent. reports having a Legal Gaurdian. She uses no assistive device. She does not drive. patient denies depression but found in old history Smoking Status: Current every day smoker Past Alcohol Use History: None Reported Past Drug Use History: None Reported - Past Family History Father Family Medical History: No Reported History Additional Family Medical History / Comment(s): father at age 92 yrs. Mother Family Medical History: COPD Additional Family Medical History / Comment(s): Mother at age 62yrs. Medications and Allergies Allergies Allergy/AdvReac Type Severity Reaction Status Date / Time erythromycin base Allergy Rash/Hives Verified 08/31/16 14:28 [Erythromycin Base] etodolac [From Lodine] Allergy Rash/Hives Verified 08/31/16 14:28 flurazepam [From Dalmane] Allergy Rash/Hives Verified 08/31/16 14:28 Penicillins Allergy Rash/Hives Verified 08/31/16 14:28 pentazocine lactate Allergy Rash/Hives Verified 08/31/16 14:28 [From Talwin] secobarbital sodium Allergy Rash/Hives Verified 08/31/16 14:28 [From Seconal] Sulfa (Sulfonamide Allergy Rash/Hives Verified 08/31/16 14:28 Antibiotics) Bleach (Sodium Hypochlorite) AdvReac Rash/Hives Verified 08/31/16 14:28 oatmeal Allergy Rash/Hives Uncoded 08/22/16 21:11 Physical Exam Vitals: Vital Signs Temp Pulse Resp BP 09/02/16 07:00 97.6 F 62 18 112/66 09/01/16 20:04 97.8 F 65 16 106/59 VITAL SIGNS: [Reviewed. BMI noted] GENERAL: [Average built, sitting up, comfortable]. EYES: [Pupils equal. Conjunctiva ronen]l. HEENT: [External appearance of nose and ears normal, oral cavity grossly normal] . NECK: [JVD not raised; masses not palpable]. HEART: [First and second heart sounds are normal; no edema]. LUNGS:[ Respiratory rate normal; clear to auscultation]. ABDOMEN: [Soft, nontender, liver spleen not palpable, no masses palpable]. LYMPHATICS: [No lymph nodes palpable in the axilla and neck]. PSYCH: [Alert and oriented x3; mood and affect anxious]l. NEUROLOGICAL: [Cranial nerves grossly intact; no facial asymmetry, power and sensation grossly intact]. DERMATOLOGICAL: Multiple reddened raised welts to back and neck, patient is notably scratching at her skin, appears dry. Results Labs: Final diagnoses: -Chronic obstructive pulmonic disease and a current smoker. -Coronary artery disease with prior history of stent. -Chronic nicotine dependence. Patient active cigarette smoker. -Essential hypertension -Primary osteoarthritis of multiple joints, bilateral. -Chronic restless leg syndrome. -Major depressive disorder recurrent severe without psychosis, per psychiatry -Darier disease causing persistent severe itching Plan: Benadryl is working well for the patient. Patient's blood pressures controlled off antihypertensives. Patient has a nicotine patch. Patient should follow with family doctor upon discharge. Don't feel a need for any inhalers the present time. Patient counseled yet again about smoking Thank you Dr. Garcia
[2016-09-02] MEDS: diphenhydrAMINE 25 MG CAP PO PRN (17:13)
[2016-09-02] MEDS: traZODone HCL 50 MG TAB PO SCH (20:53)
[2016-09-02] MEDS: MIRTAZAPINE 15 MG TAB PO SCH (20:53)
[2016-09-03 08:54] VITALS: BMI 21.6
[2016-09-03] MEDS: NICOTINE 21MG/24HR PATCH TRANSDERM SCH (09:12)
[2016-09-03] MEDS: diphenhydrAMINE 25 MG CAP PO PRN ×2 (10:15→17:27)
--- NOTE | 2016-09-03 11:42 | P.PN ---
Progress Note - Text Interval history: The patient is found in group she follows me to an interview room. She reports that she is feeling fine and would like to be discharged. We again reviewed the circumstances related to this admission and discussed utilizing an appropriate amount of time to assess her for safety. She states that because of disturbances on the unit she did not sleep as well last night. Appetite has been stable. She is attending groups. She has no questions or concerns regarding her medications the Remeron and trazodone. During team social work shared that the guardian's office has some concern regarding placement and that they may consider room and board placement for her. Mental status exam: The patient is alert she is dressed in her own clothing hygiene grooming adequate. Eye contact is good speech is fluent spontaneous nonpressured. She reports her mood is good affect is bland. She is reporting no suicidal ideation intent or plan. She is endorsing no auditory or visual hallucinations or specific delusions. There is no evidence of psychosis. She is oriented to person place day of the week month and year. She does demonstrate some memory deficit in conversation when discussing recent past events. Insight and judgment limited. She continues to simply state she is better now and doesn't require further hospitalization. Obviously this reflects an underappreciation for her recent suicide attempt. Plan: The patient will continue on the Remeron and trazodone. We are restarting his medications as she states she found them effective during her last hospitalization in March. I understand her guardian plans on meeting with the patient to discuss residence options. Vital signs reviewed. We will continue to monitor the patient for safety and encourage her continued participation in the milieu.
[2016-09-03] MEDS: MIRTAZAPINE 15 MG TAB PO SCH (21:15)
[2016-09-03] MEDS: traZODone HCL 50 MG TAB PO SCH (21:15)
[2016-09-04] MEDS: NICOTINE 21MG/24HR PATCH TRANSDERM SCH (07:59)
[2016-09-04] MEDS: diphenhydrAMINE 25 MG CAP PO PRN ×2 (08:36→17:36)
--- NOTE | 2016-09-04 14:05 | P.PN ---
Progress Note - Text Interval History: He is a 66-year-old female who is admitted due to a suicide attempt taking an overdose of 11 Norvasc. Patient had also stopped her medications several weeks prior to her admission. Patient was admitted for stabilization and to restart her medications. Patient was restarted on Remeron and trazodone which she had been on in the past with good results. Patient reports that she became upset due to the lack of contact with her extended family as her only son is in usp in [facility], she states she been feeling depressed for several weeks since stopping her medication and stated that she stopped her medication due to the fact that she was doing well. Patient has been started on Remeron 15 mg at bedtime and trazodone 50 mg at bedtime and reports today that she is feeling well, no longer depressed denies any crying spells and states she is not feeling suicidal. She reports that she had a visit with her guardian today, and she does not voice any dissatisfaction with her, and states that they are looking for a new living situation for her. Patient states that her current apartment is too expensive for her. She reported to me that she was excited about the new living situation. Patient did not voice any side effects from any of the medications. She reported that the Benadryl has been helping that her rash and had no new complaints. Mental Status: Appearance/Attitude: Patient is a 66-year-old female who is neatly dressed in street clothes and she was cooperative with good eye contact. Behavior: Patient exhibited no psychomotor agitation or retardation. Speech/Language: Patient's speech was spontaneous and coherent. Thought Process: Patient was goal-directed and was not tangential or circumstantial. Thought Content: Patient denied any auditory or visual hallucinations, no delusions were elicited. Suicidal/Homicidal Ideation: She denied current suicidal or homicidal ideation and states that her overdose attempt was not a good idea. Sensorium/Cognition: She was alert and oriented to person, place and situation. Her memory was not formally tested but was grossly intact. Mood/Affect: Patient reports her mood is improved, she is not feeling depressed and her affect was appropriate Insight/Judgement: Patient's insight and judgment are limited. Assessment: Patient was discussed in team treatment meeting, her guardian visited and informed staff that looking for a new living situation for the patient. Patient has been cooperative taking her medication and attending and participating in groups and activities. She reports that she is feeling better on the medication, no longer having suicidal ideation and feeling less depressed. She reports still worrying about her son as well as her lack of contact with her extended family and this keeps her up at night. She reports that the rash has improved in the Benadryl is helping and she had no other complaints. Patient voiced no side effects from her medication. Plan: Patient will continue on Remeron 15 mg at bedtime to target her depression and trazodone 50 mg at bedtime to target her sleep, no side effects are reported. Patient will continue to be encouraged to participate in activities and groups. I discussed with patient the need for compliance with her medications upon discharge. Patient's guardian is looking for new housing for the patient to improve her finances. Patient will continue in the hospital to further stabilize her depression.
[2016-09-04] MEDS: traZODone HCL 50 MG TAB PO SCH (21:29)
[2016-09-04] MEDS: MIRTAZAPINE 15 MG TAB PO SCH (21:30)
[2016-09-05] MEDS: diphenhydrAMINE 25 MG CAP PO PRN ×2 (08:08→14:30)
[2016-09-05] MEDS: NICOTINE 21MG/24HR PATCH TRANSDERM SCH (08:08)
--- NOTE | 2016-09-05 09:03 | P.PN ---
Progress Note - Text Interval history: The patient is found in her room she follows me to an interview room. She reports that her mood is fine. She did have a meeting with her guardian yesterday and she felt that was productive. They discussed having her move to a more supportive environment which may be also financially beneficial for her. She offers no objections to the change of residence. The patient continues to comply with her psychotropic medication and has no questions or concerns regarding it. She states she's been attending all groups. Vital signs reviewed. Mental status exam: The patient is alert she is dressed in hospital gowns she is mildly disheveled. Hygiene is adequate. Speech is spontaneous fluent nonpressured. She reports her mood is fine. Affect is constricted. She is reporting no acute suicidal or homicidal ideation intent or plan. She is endorsing no symptoms of psychosis. She demonstrates no verbal or physical aggressiveness. Insight and judgment slowly improving. She is oriented to person place month and year. She does not appear hypomanic or manic area and Plan: The patient will continue on her current psychotropic medication. We continue to assess her for safety. Alternative placement is being sought. It is likely she will be appropriate for discharge clinically once her new placement is arranged. We will continue to monitor her vitals. She is encouraged to continue participating in groups.
[2016-09-05] MEDS: traZODone HCL 50 MG TAB PO SCH (20:08)
[2016-09-05] MEDS: MIRTAZAPINE 15 MG TAB PO SCH (20:08)
[2016-09-06] MEDS: diphenhydrAMINE 25 MG CAP PO PRN ×2 (00:33→09:19)
[2016-09-06 03:08] VITALS: BP 135/75; PULSE 79; RESP 12; TEMP 97.3
[2016-09-06] MEDS: NICOTINE 21MG/24HR PATCH TRANSDERM SCH (09:18)
--- NOTE | 2016-09-06 10:13 | P.DS ---
Providers Date of admission: 09/01/16 17:58 Expected date of discharge: 09/06/16 Attending physician: Nathan Garcia Consults: 09/01/16 11:45 Consult Physician Routine Consulting Provider: Toni Carter Consult Reason/Comments: H and P and Medical Management Do you want consulting provider notified?: Yes Primary care physician: Micky Nunn - Discharge Diagnosis(es) (1) Major depressive disorder, recurrent severe without psychotic features Current Visit: Yes Status: Acute Priority: High Hospital Course: Brief summary of admission note: This patient is a 66-year-old female who is readmitted to the mental health unit after a suicide attempt via medication overdose. The patient presented after she overdosed with 11 Norvasc pills. She felt overwhelmed and frustrated with limitations financially and in terms of making her own choices. She states that she has a guardian but had not had regular contact with her. When she was here last we treated her successfully with Remeron and trazodone she took that for approximately one month and then went off of the medication. It seemed her mood had decompensated since. For full details please refer to my psychiatric evaluation dated 09/02/2016. Summary of hospital course: The patient was admitted to the mental health unit she signed in voluntarily. We reviewed her presenting symptoms and medication options. We decided to reinitiate the Remeron and trazodone as she found effective with her last hospitalization. She was seen by the animal husbandry manager for routine history and physical exam. The patient cooperated with groups she participated in the milieu she demonstrated no agitated behavior. She quickly reported a resolution of suicidal thoughts indicating a lack of insight. Throughout the stay however she states that she had no suicidal ideation and reported "I would never do that again" referring to the suicide attempt. We did get in touch with her guardian and discussed a concern of her ability to independently live. Her guardian concurred and has arranged an alternative housing environment. The patient has reported no questions or concerns regarding the Remeron or trazodone. Mental status exam: The patient is a female appearing older than her stated age. Hygiene and grooming are adequate she is dressed in her own clothing. Eye contact is good speech is spontaneous fluent nonpressured. She reports her mood is improved she reports no hopelessness thinking she reports no suicidal ideation intent or plan. She feels more optimistic in that she is getting a new living environment and she feels her and her guardian have communicated more effectively regarding her financial situation. The patient's reporting no auditory or visual hallucinations she endorses no specific delusions. Insight and judgment are improving. She is oriented to person place and date. She demonstrates no verbal or physical aggressiveness. Impressions 1. Major depressive disorder recurrent severe without psychosis, rule out neurocognitive disorder 2. Medical comorbidities include multiple sclerosis, coronary artery disease, hypertension, GERD, arthritis, dermatitis 3. Limited social support other than guardian Plan: The patient will be discharged from the mental health unit today. The patient's guardian has arranged new placement for her. The patient will continue on Remeron 15 mg at bedtime trazodone 50 mg at bedtime. Social work will arrange the patient's outpatient mental health follow-up. The patient's is not seen to be at imminent safety risk and she is appropriate for transition to outpatient care. She is instructed to return to the hospital with any acute safety concerns. Patient Condition at Discharge: Stable Plan - Discharge Summary New Discharge Prescriptions: New Mirtazapine [Remeron] 15 mg PO HS #30 tab traZODone HCL [Desyrel] 50 mg PO HS #30 tab Continue Aspirin 81 mg PO DAILY #1 chewable diphenhydrAMINE [Benadryl] 25 mg PO QID PRN #1 capsule PRN Reason: pruritus Discharge Medication List Aspirin 81 mg PO DAILY #1 chewable 09/01/16 [Rx] diphenhydrAMINE [Benadryl] 25 mg PO QID PRN #1 capsule 09/01/16 [Rx] Mirtazapine [Remeron] 15 mg PO HS #30 tab 09/06/16 [Rx] traZODone HCL [Desyrel] 50 mg PO HS #30 tab 09/06/16 [Rx] Follow up Appointment(s)/Referral(s): [facility] [Outside] - 09/12/16 4:15 pm Patient Instructions/Handouts: How to Stop Smoking (DC), Depression (DC) Activity/Diet/Wound Care/Special Instructions: Activity and diet as tolerated. Avoid the use of street drugs and alcohol. Take all mediations as prescribed. When you are in need of refills please contact your medical provider and/or your outpatient psychiatrist to have this done. Please go to all scheduled outpatient appointments for aftercare. If symptoms return or become wore call the crisis line at or go to your nearest Emergency room.
== END 2016-09-06 11:55 | disposition home or self-care (01) | DRG 885 ==
LOC: 3MHU 17:58
PROVIDERS: ADMIT Psychiatry & Neurology Psychiatry; ATTEND Psychiatry & Neurology Psychiatry
DX: F33.2 Major depressive disorder, recurrent severe without psychotic features (principal); G35 Multiple sclerosis; J44.9 Chronic obstructive pulmonary disease, unspecified; E78.5 Hyperlipidemia, unspecified; F17.200 Nicotine dependence, unspecified, uncomplicated; G25.81 Restless legs syndrome; I10 Essential (primary) hypertension; I25.10 Atherosclerotic heart disease of native coronary artery without angina pectoris; K21.9 Gastro-esophageal reflux disease without esophagitis; M19.90 Unspecified osteoarthritis, unspecified site; Z81.8 Family history of other mental and behavioral disorders; Z82.5 Family history of asthma and other chronic lower respiratory diseases; Z91.5 Personal history of self-harm
CPT/HCPCS: 84443

== ENCOUNTER → 2016-11-29 | Outpatient (CLI) | payer MEDICARE ==
--- NOTE | 2016-11-29 17:23 | XR ---
EXAMINATION TYPE: XR chest 2V DATE OF EXAM: 11/29/2016 COMPARISON: 08/31/2016 HISTORY: Positive TB test. TECHNIQUE: Frontal and lateral views of the chest are obtained. FINDINGS: Heart is normal. Lungs are clear. Thoracic aorta is atheromatous. There are no hilar dian s. There is no evidence of pleural effusion. There is 25% anterior wedging of T12 vertebra. IMPRESSION: No active cardiopulmonary disease. Old mild T12 compression fracture.
== END | disposition home or self-care (01) ==
LOC: RADXRMAIN 16:42
PROVIDERS: ATTEND Family Medicine
DX: Z11.1 Encounter for screening for respiratory tuberculosis (principal); Z87.81 Personal history of (healed) traumatic fracture
CPT/HCPCS: 71020

== ENCOUNTER → 2017-01-08 | Outpatient (CLI) | payer MEDICARE ==
--- NOTE | 2017-01-10 09:13 | MM ---
Reason for exam: screening (asymptomatic). Last mammogram was performed 3 years and 5 months ago. History: Patient is postmenopausal. Excisional biopsy of the right breast. Took estrogen for 1 year 6 months. Took progesterone for 2 months. Physical Findings: A clinical breast exam by your physician is recommended on an annual basis and results should be correlated with mammographic findings. MG Screening Mammo w CAD Bilateral CC and MLO view(s) were taken. Prior study comparison: August 13, 2013, bilateral MG diagnostic mammo w CAD [facility]. May 16, 2008, bilateral digital screening mammogram. The breast tissue is heterogeneously dense. This may lower the sensitivity of mammography. 5mm asymmetry superior left breast at posterior depth. ASSESSMENT: Incomplete: need additional imaging evaluation, BI-RAD 0 RECOMMENDATION: Special view mammogram of the left breast. If lesion persists on supplemental views, image directed ultrasound is recommended. [facility] will attempt to contact patient to return for supplemental views and ultrasound if indicated.
== END | disposition home or self-care (01) ==
LOC: RADMAMWWP 13:15
PROVIDERS: ATTEND General Practice
DX: Z12.31 Encounter for screening mammogram for malignant neoplasm of breast (principal)

== ENCOUNTER → 2017-03-13 | Outpatient (CLI) | payer MEDICARE ==
--- NOTE | 2017-03-14 09:20 | MM ---
Reason for exam: additional evaluation requested from prior study. Last mammogram was performed 2 months ago. History: Patient is postmenopausal. Excisional biopsy of the right breast. Took estrogen for 1 year 6 months. Took progesterone for 2 months. Physical Findings: Nurse did not find any significant physical abnormalities on exam. MG 3D Work Up W/Cad LT CC, MLO, and ML view(s) were taken of the left breast. Prior study comparison: January 08, 2017, bilateral MG screening mammo w CAD. August 13, 2013, bilateral MG diagnostic mammo w CAD [facility]. May 16, 2008, bilateral digital screening mammogram. There are scattered fibroglandular densities. The questioned posterior superior asymmetric density does not appear to persist on additional views. Precautionary 6 month follow up recommended. These results were verbally communicated with the patient and result sheet given to the patient on 03/13/17. ASSESSMENT: Probably benign, BI-RAD 3 RECOMMENDATION: Follow-up diagnostic mammogram of the left breast in 6 months.
== END | disposition home or self-care (01) ==
LOC: RADMAMWWP 12:15
PROVIDERS: ATTEND General Practice
DX: R92.8 Other abnormal and inconclusive findings on diagnostic imaging of breast (principal)
CPT/HCPCS: 77065; G0279

== ENCOUNTER → 2017-09-15 | Outpatient (CLI) | payer MEDICARE ==
--- NOTE | 2017-09-15 12:20 | MM ---
Reason for exam: follow-up at short interval from prior study. Last mammogram was performed 6 months ago. History: Patient is postmenopausal. Excisional biopsy of the right breast. Took estrogen for 1 year 6 months. Took progesterone for 2 months. Physical Findings: Nurse did not find any significant physical abnormalities on exam. MG 3D Diag Mammo W/Cad LT CC, MLO, and LM view(s) were taken of the left breast. Prior study comparison: March 13, 2017, left breast MG 3d work up w/cad LT. January 08, 2017, bilateral MG screening mammo w CAD. There are scattered fibroglandular densities. The previous posterior and superior asymmetry does not persist. No significant new findings when compared with previous films. These results were verbally communicated with the patient and result sheet given to the patient on 09/15/17. ASSESSMENT: Negative, BI-RAD 1 RECOMMENDATION: Return to routine screening mammogram schedule for both breasts. Back on schedule for December 2017.
== END | disposition home or self-care (01) ==
LOC: RADMAMWWP 11:00
PROVIDERS: ATTEND General Practice
DX: R92.8 Other abnormal and inconclusive findings on diagnostic imaging of breast (principal)
CPT/HCPCS: 77065; G0279; 77061

== ENCOUNTER → 2018-05-06 | Outpatient (CLI) | payer MEDICARE ==
--- NOTE | 2018-05-06 09:18 | XR ---
EXAMINATION TYPE: XR abdomen 1V DATE OF EXAM: 05/06/2018 9:03 AM CLINICAL HISTORY: Abdominal pain per order. Recent CT and colonoscopy, possible ischemic stricture. TECHNIQUE: Single supine KUB image of the abdomen is obtained prior to planned barium enema. COMPARISON: Outside CT abdomen and pelvis from [facility] January 2018 or February 9 reviewed on outside PACS station prior to beginning procedure. FINDINGS: Preprocedure fiscal manager image shows numerous clips and sutures overlying the pelvis. There is ov erall nonobstructive bowel gas pattern. A few scattered diverticula still contrast opacified are iden tified. After reviewing KUB image I reviewed outside CT which showed mild to moderate wall thickening involvi ng the left colon with mild surrounding fat stranding. Colon was suboptimally evaluated on CT as ther e is lack of enteric contrast at this level. Mild wall thickening in the sigmoid colon was also prese nt but may be product of poor distention. Uterus noted surgically absent. Surgical sutures are seen n ear level of the sigmoid rectal junction on CT. At this point I entered the room to introduce myself to patient. Patient's immediate response prior t o discussion of test was she changed her mind and did not want this procedure. At this point after sh ort discussion attempted enema procedure was terminated prior to beginning and catheter insertion. IMPRESSION: As above.
== END | disposition home or self-care (01) ==
LOC: RADFLMAIN 07:54
PROVIDERS: ATTEND Internal Medicine
DX: Z12.11 Encounter for screening for malignant neoplasm of colon (principal); K57.90 Diverticulosis of intestine, part unspecified, without perforation or abscess without bleeding
CPT/HCPCS: 74018

== ENCOUNTER → 2018-09-17 | Outpatient (CLI) | payer MEDICARE ==
--- NOTE | 2018-09-17 15:15 | MR ---
MR neck with and without contrast HISTORY: Left neck mass, cough, R 22.1 Multiplanar multisequence and postcontrast images obtained through the neck following 5 cc Gadavist I V. No comparisons Lung apices are unremarkable, no evident pleural effusion. Aorta is not aneurysmal in its visualized portions. Focus of increased signal noted in the right lobe of the thyroid and T2-weighted sequences, intermediate signal on T1 compatible with thyroid nodule. Salivary glands show some slight prominenc e of the submandibular gland on the left as compared to the right, parotid glands are unremarkable. N o evident cervical or supraclavicular adenopathy. Skull base is unremarkable. Visualized portions of the orbits are symmetric. Normal vascular flow voids are present. Level the true and false cords are unremarkable. No abnormal enhancement following contrast administration. Visualized sinuses are unrem arkable. Mastoid air cells are well aerated. There is a spinal curvature. IMPRESSION: Right thyroid nodule could be confirmed with thyroid ultrasound. No other discrete abnorm ality evident. Nonspecific findings described above. CT scan would be of increased sensitivity and im proved spatial resolution is compared to MRI.
== END | disposition home or self-care (01) ==
LOC: RADMRIMAIN 07:52
PROVIDERS: ATTEND Otolaryngology
DX: R22.1 Localized swelling, mass and lump, neck (principal)
CPT/HCPCS: 70543; A9585

== ENCOUNTER → 2018-10-28 | Outpatient (CLI) | payer MEDICARE ==
--- NOTE | 2018-10-29 13:12 | MM ---
Reason for exam: screening (asymptomatic). Last mammogram was performed 1 year and 1 month ago. History: Patient is postmenopausal. Excisional biopsy of the right breast. Took estrogen for 1 year 6 months. Took progesterone for 2 months. Physical Findings: A clinical breast exam by your physician is recommended on an annual basis and results should be correlated with mammographic findings. MG Screening Mammo w CAD Bilateral CC and MLO view(s) were taken. XCCL view(s) were taken of the right breast. Prior study comparison: September 15, 2017, left breast MG 3d diag mammo w/cad LT. March 13, 2017, left breast MG 3d work up w/cad LT. The breast tissue is heterogeneously dense. This may lower the sensitivity of mammography. Stable benign calcifications. There is no discrete abnormality. No significant changes when compared with prior studies. ASSESSMENT: Benign, BI-RAD 2 RECOMMENDATION: Routine screening mammogram of both breasts in 1 year.
== END | disposition home or self-care (01) ==
LOC: RADMAMWWP 12:48
PROVIDERS: ATTEND General Practice
DX: Z12.31 Encounter for screening mammogram for malignant neoplasm of breast (principal)
CPT/HCPCS: 77067

== ENCOUNTER → 2018-10-30 | Outpatient (CLI) | payer MEDICARE ==
--- NOTE | 2018-10-30 15:38 | US ---
EXAMINATION TYPE: US thyroid st tissue head/neck DATE OF EXAM: 10/30/2018 COMPARISON: CLINICAL HISTORY: E04.9 Thyroid nodule. MRI showed thyroid nodule. GLAND SIZE: Right Lobe: 4.0 x 1.3 x 1.6 cm Overall Parenchyma: homogenous Left Lobe: 4.3 x 1.2 x 1.4 cm Overall Parenchyma: homogeneous Isthmus Thickness: 0.2 cm NODULES RIGHT: # of nodules measured on right: 1 1. 1.7 X 1.1 x 0.8 cm mixed nodule at the mid pole with well-defined margins. This nodule is wider than tall and shows intranodular vascularity. Prior size: No prior LEFT: # of nodules measured on left: 0 ISTHMUS: # of nodules measured in the isthmus: 0 Bilateral neck scanned. Possible lymph node appearing lesion without echogenic center visualized sup erior to left thyroid = 1.5 x 0.7 x 0.4 cm IMPRESSION: Complex hypervascular 1.7 cm thyroid nodule is seen for which fine needle aspiration could be conside red. Nonenlarged lymph nodes are seen adjacent to the left lobe of the thyroid.
== END | disposition home or self-care (01) ==
LOC: RADUSWWP 14:54
PROVIDERS: ATTEND Otolaryngology
DX: E04.1 Nontoxic single thyroid nodule (principal)
CPT/HCPCS: 76536

== ENCOUNTER 2018-11-19 08:53 | Day surgery (SDC) | payer MEDICARE ==
[2018-11-19 09:20] VITALS: PULSE 61; RESP 16; TEMP 97.3
[2018-11-19 10:19] VITALS: BP 148/81
--- NOTE | 2018-11-19 13:29 | US ---
EXAMINATION TYPE: US FNA thyroid first lesion DATE OF EXAM: 11/19/2018 COMPARISON: Ultrasound thyroid 10/30/2018 HISTORY: Thyroid nodule. Maximal barrier technique was utilized. After informed consent, skin overlying the lesion was locali zed with ultrasound and the overlying skin prepped and draped. Ultrasound was utilized using sterile technique. Lidocaine was used for local anesthesia. Five passes with a 25-gauge needle were made int o the right-sided thyroid nodule and aspirated specimen was submitted to cytology. Following the pro cedure hemostasis achieved. No immediate complication. The patient discharged in stable condition. IMPRESSION: STATUS POST ULTRASOUND GUIDED FINE NEEDLE ASPIRATION OF THYROID NODULE, PATHOLOGY IS PEND ING. THIS PROCEDURE WAS PERFORMED BY THE UNDERSIGNED.
== END 2018-11-19 10:20 | disposition home or self-care (01) ==
LOC: RADPROMAIN 08:53
PROVIDERS: ATTEND Otolaryngology
DX: E04.1 Nontoxic single thyroid nodule (principal)
CPT/HCPCS: 10005; 88173; 88305

== ENCOUNTER 2019-09-19 19:07 | Emergency (ER) | payer MEDICARE ==
[2019-09-19 19:13] VITALS: BP 160/99; PULSE 99; RESP 16; TEMP 99.1
[2019-09-19] MEDS ORDERED: diphenhydrAMINE 50 MG/ML 1 ML VIAL IM STA (19:27)
[2019-09-19] MEDS ORDERED: hydrOXYzine HCL 25 MG TAB PO PRN (19:36)
--- NOTE | 2019-09-19 19:38 | ED ---
General Adult HPI - General Chief complaint: Skin/Abscess/Foreign Body Stated complaint: rash Time Seen by Provider: 09/19/19 19:14 Source: patient, RN notes reviewed Mode of arrival: ambulatory Limitations: no limitations - History of Present Illness Initial comments: Patient is a pleasant 69-year-old female presenting to emergency Department with complaints of rash. 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 Patient is requesting something to help with her itching. Patient states she does take Benadryl and multiple creams. Patient states that she was just bothering her more than normal. Patient requests a shot of Benadryl. No fevers. Symptoms are similar to her chronic disease. - Related Data Home Medications Medication Instructions Recorded Confirmed Acetaminophen Tab [Tylenol Tab] 500 mg PO Q6H 11/05/18 11/19/18 Acitretin 25 mg PO DAILY 11/05/18 11/19/18 Atorvastatin [Lipitor] 20 mg PO DAILY 11/05/18 11/19/18 Folic Acid 1 mg PO DAILY 11/05/18 11/19/18 LORazepam [Ativan] 1 mg PO BID 11/05/18 11/19/18 Loperamide [Imodium] 2 mg PO QID PRN 11/05/18 11/19/18 Loratadine [Claritin] 10 mg PO DAILY 11/05/18 11/19/18 Mirtazapine [Remeron] 15 mg PO HS 11/05/18 11/19/18 Omeprazole [PriLOSEC] 40 mg PO DAILY 11/05/18 11/19/18 Oxybutynin ER [Ditropan Xl] 30 mg PO DAILY 11/05/18 11/19/18 Zolpidem [Ambien] 10 mg PO HS PRN 11/05/18 11/19/18 Previous Rx's Medication Instructions Recorded Aspirin 81 mg PO DAILY #1 chewable 09/01/16 diphenhydrAMINE [Benadryl] 25 mg PO QID PRN #1 capsule 09/01/16 Mupirocin 2% Oint [Bactroban 2% 1 applic TOPICAL TID #30 gm 09/19/19 Oint] hydrOXYzine HCL [Atarax] 25 mg PO QID PRN #20 tab 09/19/19 Allergies Allergy/AdvReac Type Severity Reaction Status Date / Time erythromycin base Allergy Rash/Hives Verified 09/19/19 19:11 [Erythromycin Base] etodolac [From Lodine] Allergy Rash/Hives Verified 09/19/19 19:11 flurazepam [From Dalmane] Allergy Rash/Hives Verified 09/19/19 19:11 Penicillins Allergy Rash/Hives Verified 09/19/19 19:11 pentazocine lactate Allergy Rash/Hives Verified 09/19/19 19:11 [From Talwin] secobarbital sodium Allergy Rash/Hives Verified 09/19/19 19:11 [From Seconal] Sulfa (Sulfonamide Allergy Rash/Hives Verified 09/19/19 19:11 Antibiotics) Bleach (Sodium Hypochlorite) AdvReac Rash/Hives Verified 09/19/19 19:11 oatmeal Allergy Rash/Hives Uncoded 09/19/19 19:11 Review of Systems ROS Statement: Those systems with pertinent positive or pertinent negative responses have been documented in the HPI. ROS Other: All systems not noted in ROS Statement are negative. Constitutional: Denies: fever Eyes: Denies: eye pain ENT: Denies: ear pain Respiratory: Denies: cough, dyspnea Cardiovascular: Denies: chest pain Endocrine: Denies: fatigue Gastrointestinal: Denies: abdominal pain Genitourinary: Denies: dysuria Musculoskeletal: Denies: back pain Skin: Reports: as per HPI, rash Neurological: Denies: weakness Past Medical History Past Medical History: Coronary Artery Disease (CAD), Chest Pain / Angina, COPD, GERD/Reflux, Musculoskeletal Disorder Additional Past Medical History / Comment(s): Darier Disease, MS, RLS, bilateral legs cramp when walking long distances, UTI, DJD lumbar spine, pancreatitis History of Any Multi-Drug Resistant Organisms: MRSA Date of last positivie culture/infection: 09/05/2012 MDRO Source:: Urine Past Surgical History: Cholecystectomy, Heart Catheterization With Stent, Hernia Repair, Hysterectomy, Orthopedic Surgery Additional Past Surgical History / Comment(s): surgeries on left leg due to accident; Four lipomas removed from lower back; bunionectomy on left foot in August 2013, states, bowel prolapsed and they put back in place Past Anesthesia/Blood Transfusion Reactions: No Reported Reaction Additional Past Anesthesia/Blood Transfusion Reaction / Comment(s): . Date of Last Stent Placement:: 2011 Past Psychological History: Anxiety, Depression Past Alcohol Use History: Occasional Past Drug Use History: None Reported - Past Family History Father Family Medical History: No Reported History Additional Family Medical History / Comment(s): father at age 92 yrs. Mother Family Medical History: COPD Additional Family Medical History / Comment(s): Mother at age 62yrs. General Exam Limitations: no limitations General appearance: alert, in no apparent distress Head exam: Present: normocephalic Eye exam: Present: normal appearance Neck exam: Present: normal inspection Respiratory exam: Present: normal lung sounds bilaterally Cardiovascular Exam: Present: regular rate, normal rhythm GI/Abdominal exam: Present: soft. Absent: tenderness Extremities exam: Present: normal inspection Neurological exam: Present: alert Psychiatric exam: Present: normal affect, normal mood Skin exam: Present: other (Patient does have diffuse rash, mostly of the trunk. It is patchy and erythematous with some scaling.) Course Vital Signs 09/19/19 19:08 Temperature 99.1 F Pulse Rate 99 Respiratory 16 Rate Blood Pressure 160/99 O2 Sat by Pulse 96 Oximetry Disposition Clinical Impression: Darier disease Disposition: HOME SELF-CARE Condition: Stable Instructions (If sedation given, give patient instructions): Acute Rash (ED) Additional Instructions: Please follow-up with primary care physician in the next day or 2 for recheck. Return for fevers, pain, increased rash, worsening symptoms or other concerns. Prescription sent to [facility] Prescriptions: hydrOXYzine HCL [Atarax] 25 mg PO QID PRN #20 tab PRN Reason: Itching Mupirocin 2% Oint [Bactroban 2% Oint] 1 applic TOPICAL TID #30 gm Is patient prescribed a controlled substance at d/c from ED?: No Referrals: Sanya Duff MD [Primary Care Provider] - 1-2 days Time of Disposition: 19:36
== END 2019-09-19 20:20 | disposition home or self-care (01) ==
LOC: EC 19:07
DX: Q82.8 Other specified congenital malformations of skin (principal); K21.9 Gastro-esophageal reflux disease without esophagitis; F41.9 Anxiety disorder, unspecified; I25.119 Atherosclerotic heart disease of native coronary artery with unspecified angina pectoris; F32.9 Major depressive disorder, single episode, unspecified; Z95.5 Presence of coronary angioplasty implant and graft; Z86.14 Personal history of Methicillin resistant Staphylococcus aureus infection; Z79.899 Other long term (current) drug therapy; Z88.0 Allergy status to penicillin; Z88.1 Allergy status to other antibiotic agents; Z88.2 Allergy status to sulfonamides; Z88.8 Allergy status to other drugs, medicaments and biological substances; Z91.018 Allergy to other foods
CPT/HCPCS: 99282; 96372; J1200

== ENCOUNTER 2019-09-24 14:13 | Emergency (ER) | payer MEDICARE ==
[2019-09-24 14:23] VITALS: BP 145/88; PULSE 86; RESP 20; TEMP 98.1
[2019-09-24] MEDS ORDERED: methylPREDNISolone SOD SUCCI 125 MG/2 ML VIAL IM ONE (14:41)
[2019-09-24] MEDS ORDERED: diphenhydrAMINE 50 MG/ML 1 ML VIAL IM STA (14:41)
--- NOTE | 2019-09-24 14:51 | ED ---
General Adult HPI - General Chief complaint: Skin/Abscess/Foreign Body Stated complaint: rash chest/back Time Seen by Provider: 09/24/19 14:24 Source: patient, RN notes reviewed Mode of arrival: ambulatory Limitations: no limitations - History of Present Illness Initial comments: 69-year-old female with a past medical history of Darier disease presents to the emergency room for a chief complaint of rash. Patient states she has a rash over her torso and back as well as upper legs. Patient states this is consistent with Darier disease that she has a history of. However this exacerbation is somewhat worse than normal and has been ongoing for about a week. Patient has tried Atarax and Benadryl cream without improvement. She has also tried antibiotic ointment without improvement. Patient has not been on steroids. She does not have a history of diabetes. Patient has not seen a electric needle specialist. Patient has not had any fevers during this exacerbation. She does not have any constitutional symptoms and states she feels fine except for the itchiness from the rash.Patient has no other complaints at this time including shortness of breath, chest pain, abdominal pain, nausea or vomiting, headache, or visual changes. - Related Data Home Medications Medication Instructions Recorded Confirmed Acetaminophen Tab [Tylenol Tab] 500 mg PO Q6H 11/05/18 11/19/18 Acitretin 25 mg PO DAILY 11/05/18 11/19/18 Atorvastatin [Lipitor] 20 mg PO DAILY 11/05/18 11/19/18 Folic Acid 1 mg PO DAILY 11/05/18 11/19/18 LORazepam [Ativan] 1 mg PO BID 11/05/18 11/19/18 Loperamide [Imodium] 2 mg PO QID PRN 11/05/18 11/19/18 Loratadine [Claritin] 10 mg PO DAILY 11/05/18 11/19/18 Mirtazapine [Remeron] 15 mg PO HS 11/05/18 11/19/18 Omeprazole [PriLOSEC] 40 mg PO DAILY 11/05/18 11/19/18 Oxybutynin ER [Ditropan Xl] 30 mg PO DAILY 11/05/18 11/19/18 Zolpidem [Ambien] 10 mg PO HS PRN 11/05/18 11/19/18 Previous Rx's Medication Instructions Recorded Aspirin 81 mg PO DAILY #1 chewable 09/01/16 diphenhydrAMINE [Benadryl] 25 mg PO QID PRN #1 capsule 09/01/16 Mupirocin 2% Oint [Bactroban 2% 1 applic TOPICAL TID #30 gm 09/19/19 Oint] hydrOXYzine HCL [Atarax] 25 mg PO QID PRN #20 tab 09/19/19 Betamethasone Dipropionate 1 applic TOPICAL BID 7 Days #60 ml 09/24/19 [Betamethasone Dipropionate 0.05%] Allergies Allergy/AdvReac Type Severity Reaction Status Date / Time erythromycin base Allergy Rash/Hives Verified 09/24/19 14:23 [Erythromycin Base] etodolac [From Lodine] Allergy Rash/Hives Verified 09/24/19 14:23 flurazepam [From Dalmane] Allergy Rash/Hives Verified 09/24/19 14:23 Penicillins Allergy Rash/Hives Verified 09/24/19 14:23 pentazocine lactate Allergy Rash/Hives Verified 09/24/19 14:23 [From Talwin] secobarbital sodium Allergy Rash/Hives Verified 09/24/19 14:23 [From Seconal] Sulfa (Sulfonamide Allergy Rash/Hives Verified 09/24/19 14:23 Antibiotics) Bleach (Sodium Hypochlorite) AdvReac Rash/Hives Verified 09/24/19 14:23 oatmeal Allergy Rash/Hives Uncoded 09/24/19 14:23 Review of Systems ROS Statement: Those systems with pertinent positive or pertinent negative responses have been documented in the HPI. ROS Other: All systems not noted in ROS Statement are negative. Past Medical History Past Medical History: Coronary Artery Disease (CAD), Chest Pain / Angina, COPD, GERD/Reflux, Musculoskeletal Disorder Additional Past Medical History / Comment(s): Darier Disease, MS, RLS, bilateral legs cramp when walking long distances, UTI, DJD lumbar spine, pancreatitis History of Any Multi-Drug Resistant Organisms: MRSA Date of last positivie culture/infection: 09/05/2012 MDRO Source:: Urine Past Surgical History: Cholecystectomy, Heart Catheterization With Stent, Hernia Repair, Hysterectomy, Orthopedic Surgery Additional Past Surgical History / Comment(s): surgeries on left leg due to accident; Four lipomas removed from lower back; bunionectomy on left foot in August 2013, states, bowel prolapsed and they put back in place Past Anesthesia/Blood Transfusion Reactions: No Reported Reaction Additional Past Anesthesia/Blood Transfusion Reaction / Comment(s): . Date of Last Stent Placement:: 2011 Past Psychological History: Anxiety, Depression Smoking Status: Never smoker Past Alcohol Use History: Occasional Past Drug Use History: None Reported - Past Family History Father Family Medical History: No Reported History Additional Family Medical History / Comment(s): father at age 92 yrs. Mother Family Medical History: COPD Additional Family Medical History / Comment(s): Mother at age 62yrs. General Exam Limitations: no limitations General appearance: alert, in no apparent distress Head exam: Present: atraumatic, normocephalic, normal inspection Eye exam: Present: normal appearance, PERRL, EOMI. Absent: scleral icterus, conjunctival injection, periorbital swelling ENT exam: Present: normal exam, mucous membranes moist Neck exam: Present: normal inspection. Absent: tenderness, meningismus, lymphadenopathy Respiratory exam: Present: normal lung sounds bilaterally. Absent: respiratory distress, wheezes, rales, rhonchi, stridor Cardiovascular Exam: Present: regular rate, normal rhythm, normal heart sounds. Absent: systolic murmur, diastolic murmur, rubs, gallop, clicks GI/Abdominal exam: Present: soft, normal bowel sounds. Absent: distended, tenderness, guarding, rebound, rigid Skin exam: Present: rash (patient has an erythematous scaling rash noted to the torso abdomen and back. Scaling noted to the inner upper thighs. Negative Nikolsky sign. No petechial rash.) Course Vital Signs 09/24/19 14:21 Temperature 98.1 F Pulse Rate 86 Respiratory 20 Rate Blood Pressure 145/88 O2 Sat by Pulse 99 Oximetry Medical Decision Making - Medical Decision Making discussed case with Dr. Chua. Atarax will be increased. Patient will be given IM Benadryl injection here. She will be also given IM Solu-Medrol injection. Patient will be put on topical steroids which are recommended for this disease. However I did recommend the patient follows up with dermatology as she could be on oral retinoids however will have to be monitored for this. She is in agreement to follow-up. She'll return here she developed fevers or constitutional symptoms. Disposition Clinical Impression: Rash Disposition: HOME SELF-CARE Condition: Good Instructions (If sedation given, give patient instructions): Acute Rash (ED) Additional Instructions: please use topical steroid as directed. You may increase your dose to 2 Atarax at a time as needed for itching. Please follow-up with dermatology by calling today for the earliest appointment.. Return here to the emergency room if you have any fevers or worsening symptoms. Prescriptions: Betamethasone Dipropionate [Betamethasone Dipropionate 0.05%] 1 applic TOPICAL BID 7 Days #60 ml Is patient prescribed a controlled substance at d/c from ED?: No Referrals: Sanya Duff MD [Primary Care Provider] - 1-2 days Arianna Hyde MD [STAFF PHYSICIAN] - 1-2 days Dima Wilson MD [STAFF PHYSICIAN] - 1-2 days Time of Disposition: 14:46
== END 2019-09-24 15:15 | disposition home or self-care (01) ==
LOC: EC 14:13
DX: R21 Rash and other nonspecific skin eruption (principal); F41.9 Anxiety disorder, unspecified; F32.9 Major depressive disorder, single episode, unspecified; K21.9 Gastro-esophageal reflux disease without esophagitis; Z79.899 Other long term (current) drug therapy; Z88.2 Allergy status to sulfonamides; Z91.048 Other nonmedicinal substance allergy status; Z88.0 Allergy status to penicillin; Z88.6 Allergy status to analgesic agent; Z88.1 Allergy status to other antibiotic agents; Z88.8 Allergy status to other drugs, medicaments and biological substances; Z86.14 Personal history of Methicillin resistant Staphylococcus aureus infection
CPT/HCPCS: 99282; 96372 ×2; J1200; J2930

== ENCOUNTER 2019-09-28 15:31 | Emergency (ER) | payer MEDICARE ==
[2019-09-28 15:36] VITALS: BP 153/80; PULSE 85; RESP 16; TEMP 98.2
--- NOTE | 2019-09-28 15:46 | ED ---
Skin/Abscess/FB HPI - General Chief complaint: Skin/Abscess/Foreign Body Stated complaint: Rash Time Seen by Provider: 09/28/19 15:37 Source: patient Mode of arrival: ambulatory Limitations: no limitations - Related Data Home Medications Medication Instructions Recorded Confirmed Acetaminophen Tab [Tylenol Tab] 500 mg PO Q6H 11/05/18 11/19/18 Acitretin 25 mg PO DAILY 11/05/18 11/19/18 Atorvastatin [Lipitor] 20 mg PO DAILY 11/05/18 11/19/18 Folic Acid 1 mg PO DAILY 11/05/18 11/19/18 LORazepam [Ativan] 1 mg PO BID 11/05/18 11/19/18 Loperamide [Imodium] 2 mg PO QID PRN 11/05/18 11/19/18 Loratadine [Claritin] 10 mg PO DAILY 11/05/18 11/19/18 Mirtazapine [Remeron] 15 mg PO HS 11/05/18 11/19/18 Omeprazole [PriLOSEC] 40 mg PO DAILY 11/05/18 11/19/18 Oxybutynin ER [Ditropan Xl] 30 mg PO DAILY 11/05/18 11/19/18 Zolpidem [Ambien] 10 mg PO HS PRN 11/05/18 11/19/18 Previous Rx's Medication Instructions Recorded Aspirin 81 mg PO DAILY #1 chewable 09/01/16 diphenhydrAMINE [Benadryl] 25 mg PO QID PRN #1 capsule 09/01/16 Mupirocin 2% Oint [Bactroban 2% 1 applic TOPICAL TID #30 gm 09/19/19 Oint] Betamethasone Dipropionate 1 applic TOPICAL BID 7 Days #60 ml 09/24/19 [Betamethasone Dipropionate 0.05%] hydrOXYzine HCL [Atarax] 25 mg PO QID PRN #20 tab 09/24/19 Allergies Allergy/AdvReac Type Severity Reaction Status Date / Time erythromycin base Allergy Rash/Hives Verified 09/24/19 14:23 [Erythromycin Base] etodolac [From Lodine] Allergy Rash/Hives Verified 09/24/19 14:23 flurazepam [From Dalmane] Allergy Rash/Hives Verified 09/24/19 14:23 Penicillins Allergy Rash/Hives Verified 09/24/19 14:23 pentazocine lactate Allergy Rash/Hives Verified 09/24/19 14:23 [From Talwin] secobarbital sodium Allergy Rash/Hives Verified 09/24/19 14:23 [From Seconal] Sulfa (Sulfonamide Allergy Rash/Hives Verified 09/24/19 14:23 Antibiotics) Bleach (Sodium Hypochlorite) AdvReac Rash/Hives Verified 09/24/19 14:23 oatmeal Allergy Rash/Hives Uncoded 09/24/19 14:23 Review of Systems ROS Statement: Those systems with pertinent positive or pertinent negative responses have been documented in the HPI. ROS Other: All systems not noted in ROS Statement are negative. Past Medical History Past Medical History: Coronary Artery Disease (CAD), Chest Pain / Angina, COPD, GERD/Reflux, Musculoskeletal Disorder Additional Past Medical History / Comment(s): Darier Disease, MS, RLS, bilateral legs cramp when walking long distances, UTI, DJD lumbar spine, pancreatitis History of Any Multi-Drug Resistant Organisms: MRSA Date of last positivie culture/infection: 09/05/2012 MDRO Source:: Urine Past Surgical History: Cholecystectomy, Heart Catheterization With Stent, Hernia Repair, Hysterectomy, Orthopedic Surgery Additional Past Surgical History / Comment(s): surgeries on left leg due to accident; Four lipomas removed from lower back; bunionectomy on left foot in August 2013, states, bowel prolapsed and they put back in place Past Anesthesia/Blood Transfusion Reactions: No Reported Reaction Additional Past Anesthesia/Blood Transfusion Reaction / Comment(s): . Date of Last Stent Placement:: 2011 Past Psychological History: Anxiety, Depression Smoking Status: Never smoker Past Alcohol Use History: Occasional Past Drug Use History: None Reported - Past Family History Father Family Medical History: No Reported History Additional Family Medical History / Comment(s): father at age 92 yrs. Mother Family Medical History: COPD Additional Family Medical History / Comment(s): Mother at age 62yrs. General Exam Limitations: no limitations Course Vital Signs 09/28/19 15:34 Temperature 98.2 F Pulse Rate 85 Respiratory 16 Rate Blood Pressure 153/80 O2 Sat by Pulse 97 Oximetry Disposition Referrals: Sanya Duff MD [Primary Care Provider] - 1-2 days
--- NOTE | 2019-09-28 15:52 | ED ---
Skin/Abscess/FB HPI - General Chief complaint: Skin/Abscess/Foreign Body Stated complaint: Rash Time Seen by Provider: 09/28/19 15:37 Source: patient, RN notes reviewed Mode of arrival: ambulatory Limitations: no limitations - History of Present Illness Initial comments: 69-year-old female presents emergency Department chief complaint of rash. 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 Patient states that she's been trying some Atarax and some topical creams with no relief. Patient states that just does not seem to be improving. Patient had any difficulty breathing or different swallowing. Patient states she did not follow up with her primary care physician or dermatology as directed. - Related Data Home Medications Medication Instructions Recorded Confirmed Acetaminophen Tab [Tylenol Tab] 500 mg PO Q6H 11/05/18 11/19/18 Acitretin 25 mg PO DAILY 11/05/18 11/19/18 Atorvastatin [Lipitor] 20 mg PO DAILY 11/05/18 11/19/18 Folic Acid 1 mg PO DAILY 11/05/18 11/19/18 LORazepam [Ativan] 1 mg PO BID 11/05/18 11/19/18 Loperamide [Imodium] 2 mg PO QID PRN 11/05/18 11/19/18 Loratadine [Claritin] 10 mg PO DAILY 11/05/18 11/19/18 Mirtazapine [Remeron] 15 mg PO HS 11/05/18 11/19/18 Omeprazole [PriLOSEC] 40 mg PO DAILY 11/05/18 11/19/18 Oxybutynin ER [Ditropan Xl] 30 mg PO DAILY 11/05/18 11/19/18 Zolpidem [Ambien] 10 mg PO HS PRN 11/05/18 11/19/18 Previous Rx's Medication Instructions Recorded Aspirin 81 mg PO DAILY #1 chewable 09/01/16 diphenhydrAMINE [Benadryl] 25 mg PO QID PRN #1 capsule 09/01/16 Mupirocin 2% Oint [Bactroban 2% 1 applic TOPICAL TID #30 gm 09/19/19 Oint] Betamethasone Dipropionate 1 applic TOPICAL BID 7 Days #60 ml 09/24/19 [Betamethasone Dipropionate 0.05%] hydrOXYzine HCL [Atarax] 25 mg PO QID PRN #20 tab 09/24/19 Calamine/Zinc Oxide Lotion 1 applic TOPICAL QID #1 bottle 09/28/19 [Calamine Lotion] Cephalexin [Keflex] 500 mg PO Q6HR #40 cap 09/28/19 hydrOXYzine HCL [Atarax] 50 mg PO QID PRN #20 tab 09/28/19 predniSONE 50 mg PO DAILY #5 tab 09/28/19 Allergies Allergy/AdvReac Type Severity Reaction Status Date / Time erythromycin base Allergy Rash/Hives Verified 09/24/19 14:23 [Erythromycin Base] etodolac [From Lodine] Allergy Rash/Hives Verified 09/24/19 14:23 flurazepam [From Dalmane] Allergy Rash/Hives Verified 09/24/19 14:23 Penicillins Allergy Rash/Hives Verified 09/24/19 14:23 pentazocine lactate Allergy Rash/Hives Verified 09/24/19 14:23 [From Talwin] secobarbital sodium Allergy Rash/Hives Verified 09/24/19 14:23 [From Seconal] Sulfa (Sulfonamide Allergy Rash/Hives Verified 09/24/19 14:23 Antibiotics) Bleach (Sodium Hypochlorite) AdvReac Rash/Hives Verified 09/24/19 14:23 oatmeal Allergy Rash/Hives Uncoded 09/24/19 14:23 Review of Systems ROS Statement: Those systems with pertinent positive or pertinent negative responses have been documented in the HPI. ROS Other: All systems not noted in ROS Statement are negative. Past Medical History Past Medical History: Coronary Artery Disease (CAD), Chest Pain / Angina, COPD, GERD/Reflux, Musculoskeletal Disorder Additional Past Medical History / Comment(s): Darier Disease, MS, RLS, bilateral legs cramp when walking long distances, UTI, DJD lumbar spine, pancreatitis History of Any Multi-Drug Resistant Organisms: MRSA Date of last positivie culture/infection: 09/05/2012 MDRO Source:: Urine Past Surgical History: Cholecystectomy, Heart Catheterization With Stent, Hernia Repair, Hysterectomy, Orthopedic Surgery Additional Past Surgical History / Comment(s): surgeries on left leg due to accident; Four lipomas removed from lower back; bunionectomy on left foot in August 2013, states, bowel prolapsed and they put back in place Past Anesthesia/Blood Transfusion Reactions: No Reported Reaction Additional Past Anesthesia/Blood Transfusion Reaction / Comment(s): . Date of Last Stent Placement:: 2011 Past Psychological History: Anxiety, Depression Smoking Status: Never smoker Past Alcohol Use History: Occasional Past Drug Use History: None Reported - Past Family History Father Family Medical History: No Reported History Additional Family Medical History / Comment(s): father at age 92 yrs. Mother Family Medical History: COPD Additional Family Medical History / Comment(s): Mother at age 62yrs. General Exam Limitations: no limitations General appearance: alert, in no apparent distress Head exam: Present: atraumatic, normocephalic, normal inspection Eye exam: Present: normal appearance, PERRL, EOMI. Absent: scleral icterus, conjunctival injection, periorbital swelling ENT exam: Present: normal exam, mucous membranes moist Neck exam: Present: normal inspection. Absent: tenderness, meningismus, lymphadenopathy Respiratory exam: Present: normal lung sounds bilaterally. Absent: respiratory distress, wheezes, rales, rhonchi, stridor Cardiovascular Exam: Present: regular rate, normal rhythm, normal heart sounds. 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 Patient was started on, and motion, oral antibiotics and steroids. Patient return for any worsening symptoms. Disposition Clinical Impression: Darier disease, Rash Disposition: HOME SELF-CARE Condition: Stable Instructions (If sedation given, give patient instructions): Acute Rash (ED) Additional Instructions: Please return to the Emergency Department if symptoms worsen or any other concerns. Prescriptions: hydrOXYzine HCL [Atarax] 50 mg PO QID PRN #20 tab PRN Reason: pain Calamine/Zinc Oxide Lotion [Calamine Lotion] 1 applic TOPICAL QID #1 bottle Cephalexin [Keflex] 500 mg PO Q6HR #40 cap predniSONE 50 mg PO DAILY #5 tab Is patient prescribed a controlled substance at d/c from ED?: No Referrals: Sanya Duff MD [Primary Care Provider] - 1-2 days Arianna Hyde MD [STAFF PHYSICIAN] - 1-2 days Dima Wilson MD [STAFF PHYSICIAN] - 1-2 days Time of Disposition: 15:51
[2019-09-28] MEDS ORDERED: predniSONE 10 MG TAB PO STA (16:04)
== END 2019-09-28 16:02 | disposition home or self-care (01) ==
LOC: EC 15:31
DX: Q82.8 Other specified congenital malformations of skin (principal); I25.119 Atherosclerotic heart disease of native coronary artery with unspecified angina pectoris; K21.9 Gastro-esophageal reflux disease without esophagitis; F41.9 Anxiety disorder, unspecified; F32.9 Major depressive disorder, single episode, unspecified; Z79.899 Other long term (current) drug therapy; Z88.1 Allergy status to other antibiotic agents; Z88.8 Allergy status to other drugs, medicaments and biological substances; Z88.0 Allergy status to penicillin; Z88.2 Allergy status to sulfonamides; Z91.048 Other nonmedicinal substance allergy status; Z91.018 Allergy to other foods; Z95.5 Presence of coronary angioplasty implant and graft
CPT/HCPCS: 99282; J7512

== ENCOUNTER 2019-10-05 00:15 | Emergency (ER) | payer MEDICARE ==
[2019-10-05 00:23] VITALS: RESP 18; TEMP 97.9
[2019-10-05] MEDS ORDERED: diphenhydrAMINE 50 MG/ML 1 ML VIAL IM STA (00:45)
--- NOTE | 2019-10-05 00:55 | ED ---
Skin/Abscess/FB HPI - General Chief complaint: Skin/Abscess/Foreign Body Stated complaint: Rash Time Seen by Provider: 10/05/19 00:19 Source: patient Mode of arrival: ambulatory Limitations: no limitations - History of Present Illness Initial comments: Mandy is a pleasant 69-year-old female with extensive past medical history most significant for Darier disease with a recent exacerbation of her rash. Patient has been seen and evaluated in our ER 3 times in the past month due to pruritus associated with the rash. She is on oral Benadryl oral Atarax and was prescribed topical steroids. Patient reports the topical steroids made her symptoms worsen she had to discontinue those. She presents the ER tonight reporting that she can't sleep due to the itching. She states that the itching improves with cold showers, is worse with any heat or sitting for long periods of time. She's not had any fever she's not developed any redness purulence or induration. She reports the caregivers at her assisted living have contacted dermatology for follow-up appointment she has not yet established appointment. - Related Data Home Medications Medication Instructions Recorded Confirmed Acetaminophen Tab [Tylenol Tab] 500 mg PO Q6H 11/05/18 11/19/18 Acitretin 25 mg PO DAILY 11/05/18 11/19/18 Atorvastatin [Lipitor] 20 mg PO DAILY 11/05/18 11/19/18 Folic Acid 1 mg PO DAILY 11/05/18 11/19/18 LORazepam [Ativan] 1 mg PO BID 11/05/18 11/19/18 Loperamide [Imodium] 2 mg PO QID PRN 11/05/18 11/19/18 Loratadine [Claritin] 10 mg PO DAILY 11/05/18 11/19/18 Mirtazapine [Remeron] 15 mg PO HS 11/05/18 11/19/18 Omeprazole [PriLOSEC] 40 mg PO DAILY 11/05/18 11/19/18 Oxybutynin ER [Ditropan Xl] 30 mg PO DAILY 11/05/18 11/19/18 Zolpidem [Ambien] 10 mg PO HS PRN 11/05/18 11/19/18 Previous Rx's Medication Instructions Recorded Aspirin 81 mg PO DAILY #1 chewable 09/01/16 diphenhydrAMINE [Benadryl] 25 mg PO QID PRN #1 capsule 09/01/16 Mupirocin 2% Oint [Bactroban 2% 1 applic TOPICAL TID #30 gm 09/19/19 Oint] Betamethasone Dipropionate 1 applic TOPICAL BID 7 Days #60 ml 09/24/19 [Betamethasone Dipropionate 0.05%] hydrOXYzine HCL [Atarax] 25 mg PO QID PRN #20 tab 09/24/19 Calamine/Zinc Oxide Lotion 1 applic TOPICAL QID #1 bottle 09/28/19 [Calamine Lotion] Cephalexin [Keflex] 500 mg PO Q6HR #40 cap 09/28/19 hydrOXYzine HCL [Atarax] 50 mg PO QID PRN #20 tab 09/28/19 predniSONE 50 mg PO DAILY #5 tab 09/28/19 Allergies Allergy/AdvReac Type Severity Reaction Status Date / Time erythromycin base Allergy Rash/Hives Verified 10/05/19 00:23 [Erythromycin Base] etodolac [From Lodine] Allergy Rash/Hives Verified 10/05/19 00:23 flurazepam [From Dalmane] Allergy Rash/Hives Verified 10/05/19 00:23 Penicillins Allergy Rash/Hives Verified 10/05/19 00:23 pentazocine lactate Allergy Rash/Hives Verified 10/05/19 00:23 [From Talwin] secobarbital sodium Allergy Rash/Hives Verified 10/05/19 00:23 [From Seconal] Sulfa (Sulfonamide Allergy Rash/Hives Verified 10/05/19 00:23 Antibiotics) Bleach (Sodium Hypochlorite) AdvReac Rash/Hives Verified 10/05/19 00:23 oatmeal Allergy Rash/Hives Uncoded 10/05/19 00:23 Review of Systems ROS Statement: Those systems with pertinent positive or pertinent negative responses have been documented in the HPI. ROS Other: All systems not noted in ROS Statement are negative. Past Medical History Past Medical History: Coronary Artery Disease (CAD), Chest Pain / Angina, COPD, GERD/Reflux, Musculoskeletal Disorder Additional Past Medical History / Comment(s): Darier Disease, MS, RLS, bilateral legs cramp when walking long distances, UTI, DJD lumbar spine, pancreatitis History of Any Multi-Drug Resistant Organisms: MRSA Date of last positivie culture/infection: 09/05/2012 MDRO Source:: Urine Past Surgical History: Cholecystectomy, Heart Catheterization With Stent, Hernia Repair, Hysterectomy, Orthopedic Surgery Additional Past Surgical History / Comment(s): surgeries on left leg due to accident; Four lipomas removed from lower back; bunionectomy on left foot in August 2013, states, bowel prolapsed and they put back in place Past Anesthesia/Blood Transfusion Reactions: No Reported Reaction Additional Past Anesthesia/Blood Transfusion Reaction / Comment(s): . Date of Last Stent Placement:: 2011 Past Psychological History: Anxiety, Depression Smoking Status: Never smoker Past Alcohol Use History: Occasional Past Drug Use History: None Reported - Past Family History Father Family Medical History: No Reported History Additional Family Medical History / Comment(s): father at age 92 yrs. Mother Family Medical History: COPD Additional Family Medical History / Comment(s): Mother at age 62yrs. General Exam - General Exam Comments Initial Comments: Physical Exam GENERAL: Patient is well-developed and well-nourished. Patient is nontoxic and well-hydrated and is in no distress. HENT: Normocephalic, Atraumatic. EYES: PERRL, EOMI PULMONARY: Unlabored respirations. CARDIOVASCULAR: RRR Warm and well perfused extremities ABDOMEN: Non-distended SKIN: Erythematous pruritic plaque like rash noted on the back, chest and arms. Excoriations noted on the shoulders and chest No induration or purulent drainage : Deferred NEUROLOGIC: Alert and oriented Normal speech Normal gait MUSCULOSKELETAL: Moving all extremities with no apparent injury PSYCHIATRIC: No SI/HI Limitations: no limitations Course Vital Signs 10/05/19 00:21 Temperature 97.9 F Pulse Rate 84 Respiratory 18 Rate Blood Pressure 177/95 O2 Sat by Pulse 95 Oximetry Medical Decision Making - Medical Decision Making The patient was seen and evaluated history is obtained from patient Patient here for treatment of pruritus, plans to follow with dermatology for further management of her rash Patient be treated with IM benadryl and discharged for continued follow up Patient given ice pack for pruritis Disposition Clinical Impression: Darier disease Disposition: HOME SELF-CARE Condition: Stable Instructions (If sedation given, give patient instructions): Urticaria (ED), Cold Compress or Soak (ED) Is patient prescribed a controlled substance at d/c from ED?: No Referrals: Sanya Duff MD [Primary Care Provider] - 1-2 days
[2019-10-05 01:18] VITALS: BP 158/93; PULSE 83
== END 2019-10-05 01:18 | disposition home or self-care (01) ==
LOC: EC 00:15
DX: Q82.8 Other specified congenital malformations of skin (principal); I25.119 Atherosclerotic heart disease of native coronary artery with unspecified angina pectoris; K21.9 Gastro-esophageal reflux disease without esophagitis; F41.9 Anxiety disorder, unspecified; F32.9 Major depressive disorder, single episode, unspecified; Z79.899 Other long term (current) drug therapy; Z88.0 Allergy status to penicillin; Z88.1 Allergy status to other antibiotic agents; Z88.8 Allergy status to other drugs, medicaments and biological substances; Z88.2 Allergy status to sulfonamides; Z91.018 Allergy to other foods; Z95.5 Presence of coronary angioplasty implant and graft
CPT/HCPCS: 99283; 96372; J1200

== ENCOUNTER 2019-10-21 14:36 | Emergency (ER) | payer MEDICARE ==
--- NOTE | 2019-10-21 15:17 | ED ---
General Adult HPI - General Chief complaint: Syncope Stated complaint: Seizures Time Seen by Provider: 10/21/19 14:45 Source: patient, EMS Mode of arrival: EMS Limitations: no limitations - History of Present Illness Initial comments: Dictation was produced using [employer] dictation software. please excuse any grammatical, word or spelling errors. This patient was cared for during a federal and state declared state of emergency secondary to Covid 19 Chief Complaint: 69-year-old female presents with syncope History of Present Illness: Patient 69-year-old female she was brought in by EMS. According to nurse received report from EMS patient had episode of syncope. She was at a friend's house. Patient reports that she was at a friend's house when she asked her friend to be excused. She went then to go sit on a couch. She was then told that she passed out and was witnessed to have shaking of her limbs. Friend is not at bedside to assist in providing HPI. Patient states the next thing she remembers was waking up on the couch. Patient has any pain complaints. Patient has history of falling. 2 weeks ago she had a fall. She has history of multiple sclerosis. Patient does not have a history of seizures. She has no complaints at this time. No bowel or bladder incontinence. Denies any tongue biting. Patient has history of cardiac stents she has no history of heart failure. The ROS documented in this emergency department record has been reviewed and confirmed by me. Those systems with pertinent positive or negative responses have been documented in the HPI. All other systems are other negative and/or noncontributory. PHYSICAL EXAM: General Impression: Alert and oriented x3, not in acute distress HEENT: Normocephalic atraumatic, extra-ocular movements intact, pupils equal and reactive to light bilaterally, mucous membranes moist. Cardiovascular: Heart regular rate and rhythm Chest: Able to complete full sentences, no retractions, no tachypnea Abdomen: abdomen soft, non-tender, non-distended, no organomegaly Musculoskeletal: Pulses present and equal in all extremities, no peripheral edema Motor: no focal deficits noted Neurological: CN II-XII grossly intact, no focal motor or sensory deficits noted Skin: Intact with no visualized rashes Psych: Normal affect and mood ED course: 69-year-old female presents today with sick be versus seizure. Allegedly there was history of shaking episode. It is unclear whether there was a postictal period after the syncopal episode. As upon arrival are within acceptable limits. Chart review was performed. Patient had EEG and brain MRI that was performed in 2016. EEG was deemed to be normal. Patient also had MRI at that time was nonacute. Patient is asymptomatic at this time. Patient does not have any history of heart failure. In 2017 patient had an echo showing normal EF.Laboratory evaluation obtained. CBC is unremarkable. Metabolic panel is negative. Elevation of alk phos. Liver enzyme elevation is mild. Computed tomography scan of the head and C-spine is unremarkable. Patient observed in the emergency department for couple hours showing no changes. She feels well. Patient and motor with no complications. Discharge. She is advised follow-up with primary care physician. EKG interpretation: Ventricular rate 80, normal sinus rhythm, MO interval 130, QRS 78, QTC 477. No MO prolongation, no QTC prolongation, no ST or T-wave changes noted. EKG compared to 08/31/2016 showing no changes. Overall, this EKG is unremarkable - Related Data Home Medications Medication Instructions Recorded Confirmed Acetaminophen Tab [Tylenol Tab] 500 mg PO Q6H 11/05/18 11/19/18 Acitretin 25 mg PO DAILY 11/05/18 11/19/18 Atorvastatin [Lipitor] 20 mg PO DAILY 11/05/18 11/19/18 Folic Acid 1 mg PO DAILY 11/05/18 11/19/18 LORazepam [Ativan] 1 mg PO BID 11/05/18 11/19/18 Loperamide [Imodium] 2 mg PO QID PRN 11/05/18 11/19/18 Loratadine [Claritin] 10 mg PO DAILY 11/05/18 11/19/18 Mirtazapine [Remeron] 15 mg PO HS 11/05/18 11/19/18 Omeprazole [PriLOSEC] 40 mg PO DAILY 11/05/18 11/19/18 Oxybutynin ER [Ditropan Xl] 30 mg PO DAILY 11/05/18 11/19/18 Zolpidem [Ambien] 10 mg PO HS PRN 11/05/18 11/19/18 Previous Rx's Medication Instructions Recorded Aspirin 81 mg PO DAILY #1 chewable 09/01/16 diphenhydrAMINE [Benadryl] 25 mg PO QID PRN #1 capsule 09/01/16 Mupirocin 2% Oint [Bactroban 2% 1 applic TOPICAL TID #30 gm 09/19/19 Oint] Betamethasone Dipropionate 1 applic TOPICAL BID 7 Days #60 ml 09/24/19 [Betamethasone Dipropionate 0.05%] hydrOXYzine HCL [Atarax] 25 mg PO QID PRN #20 tab 09/24/19 Calamine/Zinc Oxide Lotion 1 applic TOPICAL QID #1 bottle 09/28/19 [Calamine Lotion] Cephalexin [Keflex] 500 mg PO Q6HR #40 cap 09/28/19 hydrOXYzine HCL [Atarax] 50 mg PO QID PRN #20 tab 09/28/19 predniSONE 50 mg PO DAILY #5 tab 09/28/19 Allergies Allergy/AdvReac Type Severity Reaction Status Date / Time erythromycin base Allergy Rash/Hives Verified 10/21/19 14:56 [Erythromycin Base] etodolac [From Lodine] Allergy Rash/Hives Verified 10/21/19 14:56 flurazepam [From Dalmane] Allergy Rash/Hives Verified 10/21/19 14:56 Penicillins Allergy Rash/Hives Verified 10/21/19 14:56 pentazocine lactate Allergy Rash/Hives Verified 10/21/19 14:56 [From Talwin] secobarbital sodium Allergy Rash/Hives Verified 10/21/19 14:56 [From Seconal] Sulfa (Sulfonamide Allergy Rash/Hives Verified 10/21/19 14:56 Antibiotics) Bleach (Sodium Hypochlorite) AdvReac Rash/Hives Verified 10/21/19 14:56 oatmeal Allergy Rash/Hives Uncoded 10/21/19 14:56 Review of Systems ROS Statement: Those systems with pertinent positive or pertinent negative responses have been documented in the HPI. ROS Other: All systems not noted in ROS Statement are negative. Past Medical History Past Medical History: Coronary Artery Disease (CAD), Chest Pain / Angina, COPD, GERD/Reflux, Musculoskeletal Disorder Additional Past Medical History / Comment(s): Darier Disease, MS, RLS, bilateral legs cramp when walking long distances, UTI, DJD lumbar spine, pancreatitis History of Any Multi-Drug Resistant Organisms: MRSA Date of last positivie culture/infection: 09/05/2012 MDRO Source:: Urine Past Surgical History: Cholecystectomy, Heart Catheterization With Stent, Hernia Repair, Hysterectomy, Orthopedic Surgery Additional Past Surgical History / Comment(s): surgeries on left leg due to accident; Four lipomas removed from lower back; bunionectomy on left foot in August 2013, states, bowel prolapsed and they put back in place Past Anesthesia/Blood Transfusion Reactions: No Reported Reaction Additional Past Anesthesia/Blood Transfusion Reaction / Comment(s): . Date of Last Stent Placement:: 2011 Past Psychological History: Anxiety, Depression Smoking Status: Current every day smoker Past Alcohol Use History: Occasional Past Drug Use History: None Reported - Past Family History Father Family Medical History: No Reported History Additional Family Medical History / Comment(s): father at age 92 yrs. Mother Family Medical History: COPD Additional Family Medical History / Comment(s): Mother at age 62yrs. General Exam Limitations: no limitations Course Vital Signs 10/21/19 10/21/19 10/21/19 14:48 15:00 15:30 Temperature 98.5 F Pulse Rate 75 79 77 Respiratory 18 16 13 Rate Blood Pressure 149/88 149/88 157/82 O2 Sat by Pulse 95 95 93 L Oximetry Medical Decision Making - Lab Data Result diagrams: 10/21/19 15:22 10/21/19 15:22 Lab Results 10/21/19 10/21/19 Range/Units 15:22 15:22 WBC 6.4 (3.8-10.6) k/uL RBC 4.24 (3.80-5.40) m/uL Hgb 11.9 (11.4-16.0) gm/dL Hct 38.5 (34.0-46.0) % MCV 90.7 (80.0-100.0) fL MCH 28.0 (25.0-35.0) pg MCHC 30.8 L (31.0-37.0) g/dL RDW 15.8 H (11.5-15.5) % Plt Count 405 (150-450) k/uL Neutrophils % 72 % Lymphocytes % 15 % Monocytes % 7 % Eosinophils % 3 % Basophils % 1 % Neutrophils # 4.6 (1.3-7.7) k/uL Lymphocytes # 1.0 (1.0-4.8) k/uL Monocytes # 0.4 (0-1.0) k/uL Eosinophils # 0.2 (0-0.7) k/uL Basophils # 0.1 (0-0.2) k/uL Hypochromasia Slight Sodium 138 (137-145) mmol/L Potassium 4.2 (3.5-5.1) mmol/L Chloride 103 (98-107) mmol/L Carbon Dioxide 28 (22-30) mmol/L Anion Gap 7 mmol/L BUN 13 (7-17) mg/dL Creatinine 0.74 (0.52-1.04) mg/dL Est GFR (CKD-EPI)AfAm >90 (>60 ml/min/1.73 sqM) Est GFR (CKD-EPI)NonAf 82 (>60 ml/min/1.73 sqM) Glucose 87 (74-99) mg/dL Calcium 9.6 (8.4-10.2) mg/dL Magnesium 1.9 (1.6-2.3) mg/dL Total Bilirubin 0.5 (0.2-1.3) mg/dL AST 70 H (14-36) U/L ALT 28 (4-34) U/L Alkaline Phosphatase 128 H (38-126) U/L Creatine Kinase 276 H (30-135) U/L Total Protein 8.1 (6.3-8.2) g/dL Albumin 4.3 (3.5-5.0) g/dL Disposition Clinical Impression: Syncope Disposition: HOME SELF-CARE Condition: Good Instructions (If sedation given, give patient instructions): Syncope (ED) Is patient prescribed a controlled substance at d/c from ED?: No Referrals: Sanya Duff MD [Primary Care Provider] - 1-2 days Time of Disposition: 16:15
[2019-10-21 15:35] LABS: Basophils # (A) 0.1 k/uL (0-0.2); Basophils % (A) 1 %; Eosinophils # (A) 0.2 k/uL (0-0.7); Eosinophils % (A) 3 %; HCT 38.5 % (34.0-46.0); HGB 11.9 gm/dL (11.4-16.0); Hypochromasia Slight; Lymphocytes % (A) 15 %; MCHC 30.8 g/dL (31.0-37.0); MCV 90.7 fL (80.0-100.0); Mean Platelet Volume 7.5; Monocytes # (A) 0.4 k/uL (0-1.0); Monocytes % (A) 7 %; Neutrophils # (A) 4.6 k/uL (1.3-7.7); Neutrophils % (A) 72 %; Platelet Count 405 k/uL (150-450); RBC 4.24 m/uL (3.80-5.40); RDW 15.8 % (11.5-15.5); WBC 6.4 k/uL (3.8-10.6)
[2019-10-21 15:44] LABS: ALT 28 U/L (4-34); AST 70 U/L (14-36); African American GFR (CKD) >90 (>60 ml/min/1.73 sqM); Albumin 4.3 g/dL (3.5-5.0); Alkaline Phosphatase 128 U/L (38-126); Anion Gap 7 mmol/L; Blood Urea Nitrogen 13 mg/dL (7-17); Calcium 9.6 mg/dL (8.4-10.2); Carbon Dioxide 28 mmol/L (22-30); Chloride 103 mmol/L (98-107); Creatine Kinase 276 U/L (30-135); Glucose 87 mg/dL (74-99); Magnesium 1.9 mg/dL (1.6-2.3); Non-African American GFR(CKD) 82 (>60 ml/min/1.73 sqM); Potassium 4.2 mmol/L (3.5-5.1); Sodium 138 mmol/L (137-145); Total Bilirubin 0.5 mg/dL (0.2-1.3); Total Protein 8.1 g/dL (6.3-8.2)
[2019-10-21 15:55] VITALS: RESP 13
--- NOTE | 2019-10-21 16:13 | CT ---
EXAMINATION TYPE: CT brain cspine wo con DATE OF EXAM: 10/21/2019 COMPARISON: CT brain March 19, 2016. CT cervical spine November 02, 2014. HISTORY: Syncope with headache and neck pain. CT DLP: 1237.2 mGycm. Automated Exposure Control for Dose Reduction was Utilized. TECHNIQUE: CT scan of the head and cervical spine are performed without contrast. FINDINGS: There is no acute intracranial hemorrhage or midline shift identified. Mild ventricular a nd sulcal prominence. Moderate low-attenuation in the deep and periventricular white matter redemonst rated. The globes are intact and the visualized sinuses are clear. No suspicious new opacities and ma stoid air cells. Cervical spine is visualized in its entirety from C1 through upper thoracic levels and demonstrates s table slight grade 1 retrolisthesis C3 on C4 and C4 on C5 without evidence of acute fracture or dislo cation. Prevertebral soft tissue appears within normal limits. The C1-C2 articulation is within nor mal limits on the coronal images. Vertebral body heights and disc space heights fairly well maintain ed. Spinal canal preserved. Axial images show left paracentral/foraminal spur disc complex effacing v entral lateral thecal sac and causing asymmetric moderate left-sided neural foraminal narrowing simil ar to prior at C3-C4 level. Similar findings noted at C4-C5 level. Thyroid gland remains within ronen l limits. Lung apices show mild to moderate emphysematous change and fibrosis without pneumothorax. IMPRESSION: 1. There is no acute fracture or dislocation evident in the cervical spine. 2. No acute intracranial hemorrhage or midline shift is seen.
[2019-10-21 16:26] VITALS: BP 134/72; PULSE 74; TEMP 98.1
== END 2019-10-21 16:27 | disposition home or self-care (01) ==
LOC: EC 14:36
DX: R55 Syncope and collapse (principal); R74.8 Abnormal levels of other serum enzymes; I25.119 Atherosclerotic heart disease of native coronary artery with unspecified angina pectoris; K21.9 Gastro-esophageal reflux disease without esophagitis; F41.9 Anxiety disorder, unspecified; F32.9 Major depressive disorder, single episode, unspecified; F17.200 Nicotine dependence, unspecified, uncomplicated; Z79.899 Other long term (current) drug therapy; Z88.0 Allergy status to penicillin; Z88.1 Allergy status to other antibiotic agents; Z88.2 Allergy status to sulfonamides; Z91.018 Allergy to other foods; Z88.8 Allergy status to other drugs, medicaments and biological substances; Z91.048 Other nonmedicinal substance allergy status; Z95.5 Presence of coronary angioplasty implant and graft
CPT/HCPCS: 36415; 70450; 72125; 80053; 82550; 83735; 85025; 93005; 99284

== ENCOUNTER 2019-10-24 21:06 | Observation (INO) | payer MEDICARE ==
--- NOTE | 2019-10-24 22:47 | ED ---
Altered Mental Status HPI - General Chief Complaint: Altered Mental Status Stated Complaint: Altered Mental Status,Head Injury Time Seen by Provider: 10/24/19 22:21 Source: patient, Caregiver Mode of arrival: ambulatory Limitations: no limitations - History of Present Illness Initial Comments: Nicole is a 69yo female who is in the ER today for evaluation of hallucinations. Patient reports she was seen and evaluated 2-3 days ago for a fall with head injury but there is found to be no intracranial injury. She states over the past day she's been at home but is been hallucinating. She states that she is seeing things that are not there, such as ducks flying around. She denies any illness, fevers or chills. She is not certain what medication she is on her she's had any recent medication changes. She does have his chronic skin condition and is on chronic antihistamines. - Related Data Home Medications Medication Instructions Recorded Confirmed Acetaminophen Tab [Tylenol Tab] 500 mg PO Q6H 11/05/18 11/19/18 Acitretin 25 mg PO DAILY 11/05/18 11/19/18 Atorvastatin [Lipitor] 20 mg PO DAILY 11/05/18 11/19/18 Folic Acid 1 mg PO DAILY 11/05/18 11/19/18 LORazepam [Ativan] 1 mg PO BID 11/05/18 11/19/18 Loperamide [Imodium] 2 mg PO QID PRN 11/05/18 11/19/18 Loratadine [Claritin] 10 mg PO DAILY 11/05/18 11/19/18 Mirtazapine [Remeron] 15 mg PO HS 11/05/18 11/19/18 Omeprazole [PriLOSEC] 40 mg PO DAILY 11/05/18 11/19/18 Oxybutynin ER [Ditropan Xl] 30 mg PO DAILY 11/05/18 11/19/18 Zolpidem [Ambien] 10 mg PO HS PRN 11/05/18 11/19/18 Previous Rx's Medication Instructions Recorded Aspirin 81 mg PO DAILY #1 chewable 09/01/16 diphenhydrAMINE [Benadryl] 25 mg PO QID PRN #1 capsule 09/01/16 Mupirocin 2% Oint [Bactroban 2% 1 applic TOPICAL TID #30 gm 09/19/19 Oint] Betamethasone Dipropionate 1 applic TOPICAL BID 7 Days #60 ml 09/24/19 [Betamethasone Dipropionate 0.05%] hydrOXYzine HCL [Atarax] 25 mg PO QID PRN #20 tab 09/24/19 Calamine/Zinc Oxide Lotion 1 applic TOPICAL QID #1 bottle 09/28/19 [Calamine Lotion] Cephalexin [Keflex] 500 mg PO Q6HR #40 cap 09/28/19 hydrOXYzine HCL [Atarax] 50 mg PO QID PRN #20 tab 09/28/19 predniSONE 50 mg PO DAILY #5 tab 09/28/19 Hydrocortisone [Cortisone] 1 applicate TP BID 7 Days #100 10/24/19 gel..gram. Allergies Allergy/AdvReac Type Severity Reaction Status Date / Time erythromycin base Allergy Rash/Hives Verified 10/24/19 21:30 [Erythromycin Base] etodolac [From Lodine] Allergy Rash/Hives Verified 10/24/19 21:30 flurazepam [From Dalmane] Allergy Rash/Hives Verified 10/24/19 21:30 Penicillins Allergy Rash/Hives Verified 10/24/19 21:30 pentazocine lactate Allergy Rash/Hives Verified 10/24/19 21:30 [From Talwin] secobarbital sodium Allergy Rash/Hives Verified 10/24/19 21:30 [From Seconal] Sulfa (Sulfonamide Allergy Rash/Hives Verified 10/24/19 21:30 Antibiotics) Bleach (Sodium Hypochlorite) AdvReac Rash/Hives Verified 10/24/19 21:30 oatmeal Allergy Rash/Hives Uncoded 10/24/19 21:30 Review of Systems ROS Statement: Those systems with pertinent positive or pertinent negative responses have been documented in the HPI. ROS Other: All systems not noted in ROS Statement are negative. Past Medical History Past Medical History: Coronary Artery Disease (CAD), Chest Pain / Angina, COPD, GERD/Reflux, Musculoskeletal Disorder Additional Past Medical History / Comment(s): Darier Disease, MS, RLS, bilateral legs cramp when walking long distances, UTI, DJD lumbar spine, pancreatitis History of Any Multi-Drug Resistant Organisms: MRSA Date of last positivie culture/infection: 09/05/2012 MDRO Source:: Urine Past Surgical History: Cholecystectomy, Heart Catheterization With Stent, Hernia Repair, Hysterectomy, Orthopedic Surgery Additional Past Surgical History / Comment(s): surgeries on left leg due to accident; Four lipomas removed from lower back; bunionectomy on left foot in August 2013, states, bowel prolapsed and they put back in place Past Anesthesia/Blood Transfusion Reactions: No Reported Reaction Additional Past Anesthesia/Blood Transfusion Reaction / Comment(s): . Date of Last Stent Placement:: 2011 Past Psychological History: Anxiety, Depression Smoking Status: Current every day smoker Past Alcohol Use History: Occasional Past Drug Use History: None Reported - Past Family History Father Family Medical History: No Reported History Additional Family Medical History / Comment(s): father at age 92 yrs. Mother Family Medical History: COPD Additional Family Medical History / Comment(s): Mother at age 62yrs. General Exam - General Exam Comments Initial Comments: Physical Exam GENERAL: Patient is well-developed and well-nourished. Patient is nontoxic and well-hydrated and is in no distress. HENT: Normocephalic Well healing laceration over left eyebrow EYES: PERRL, EOMI PULMONARY: Unlabored respirations. CARDIOVASCULAR: RRR Warm and well perfused extremities ABDOMEN: Non-distended SKIN: Chronic erythematous rash with excoriations noted : Deferred NEUROLOGIC: Alert and oriented Normal speech MUSCULOSKELETAL: Moving all extremities with no apparent injury PSYCHIATRIC: No SI/HI Limitations: no limitations Course Vital Signs 10/24/19 10/24/19 10/24/19 21:23 22:48 23:49 Temperature 97.3 F L Pulse Rate 58 L 90 81 Respiratory 16 18 18 Rate Blood Pressure 148/81 149/92 166/86 O2 Sat by Pulse 97 96 94 L Oximetry Medical Decision Making - Medical Decision Making The patient was seen and evaluated history is obtained from patient History and physical exam are concerning for a very pleasant 69-year-old female who is having hallucinations she has been on multiple anticholinergics including Benadryl and Atarax was recently been on oral steroids and topical steroids. There are multiple metabolic her pharmaceutical causes of encephalopathy. Repeat head CT is unremarkable labs are unremarkable urinalysis shows only benzodiazepines in her urine drug screen I do not feel the patient will be safe to be discharged home given that she 69 years old and is actively hallucinating therefore she will be admitted for metabolic encephalopathy likely related to polypharmacy Medications including Tylenol and statins were ordered however medications which could contribute to encephalopathy including Atarax, Benadryl, prednisone, topical steroids, Ambien were held. - Lab Data Result diagrams: 10/24/19 22:23 10/24/19 22:23 Lab Results 10/24/19 10/24/19 10/24/19 Range/Units 22:23 22:23 22:23 WBC 6.4 (3.8-10.6) k/uL RBC 4.36 (3.80-5.40) m/uL Hgb 12.2 (11.4-16.0) gm/dL Hct 38.9 (34.0-46.0) % MCV 89.1 (80.0-100.0) fL MCH 28.0 (25.0-35.0) pg MCHC 31.4 (31.0-37.0) g/dL RDW 15.9 H (11.5-15.5) % Plt Count 333 (150-450) k/uL Neutrophils % 65 % Lymphocytes % 18 % Monocytes % 13 % Eosinophils % 2 % Basophils % 1 % Neutrophils # 4.1 (1.3-7.7) k/uL Lymphocytes # 1.1 (1.0-4.8) k/uL Monocytes # 0.8 (0-1.0) k/uL Eosinophils # 0.1 (0-0.7) k/uL Basophils # 0.0 (0-0.2) k/uL Hypochromasia Slight Sodium 137 (137-145) mmol/L Potassium 4.2 (3.5-5.1) mmol/L Chloride 105 (98-107) mmol/L Carbon Dioxide 25 (22-30) mmol/L Anion Gap 7 mmol/L BUN 11 (7-17) mg/dL Creatinine 0.77 (0.52-1.04) mg/dL Est GFR (CKD-EPI)AfAm 90 (>60 ml/min/1.73 sqM) Est GFR (CKD-EPI)NonAf 78 (>60 ml/min/1.73 sqM) Glucose 88 (74-99) mg/dL Calcium 9.6 (8.4-10.2) mg/dL Total Bilirubin 0.5 (0.2-1.3) mg/dL AST 68 H (14-36) U/L ALT 27 (4-34) U/L Alkaline Phosphatase 128 H (38-126) U/L Total Protein 7.8 (6.3-8.2) g/dL Albumin 4.2 (3.5-5.0) g/dL Urine Color Light Yellow Urine Appearance Clear (Clear) Urine pH 7.0 (5.0-8.0) Ur Specific [place] 1.006 (1.001-1.035) Urine Protein Negative (Negative) Urine Glucose (UA) Negative (Negative) Urine Ketones Negative (Negative) Urine Blood Negative (Negative) Urine Nitrite Negative (Negative) Urine Bilirubin Negative (Negative) Urine Urobilinogen <2.0 (<2.0) mg/dL Ur Leukocyte Esterase Trace H (Negative) Urine RBC <1 (0-5) /hpf Urine WBC 1 (0-5) /hpf Ur Squamous Epith Cells 1 (0-4) /hpf Urine Mucus Rare H (None) /hpf Urine Opiates Screen Not Detected (NotDetected) Ur Oxycodone Screen Not Detected (NotDetected) Urine Methadone Screen Not Detected (NotDetected) Ur Propoxyphene Screen Not Detected (NotDetected) Ur Barbiturates Screen Not Detected (NotDetected) U Tricyclic Antidepress Not Detected (NotDetected) Ur Phencyclidine Scrn Not Detected (NotDetected) Ur Amphetamines Screen Not Detected (NotDetected) U Methamphetamines Scrn Not Detected (NotDetected) U Benzodiazepines Scrn Detected H (NotDetected) Urine Cocaine Screen Not Detected (NotDetected) U Marijuana (THC) Screen Not Detected (NotDetected) Disposition Clinical Impression: Metabolic encephalopathy Disposition: ADMITTED IP TO THIS [facility] Condition: Stable Referrals: Sanya Duff MD [Primary Care Provider] - 1-2 days
[2019-10-24 22:48] LABS: Appearance,Urine Clear (Clear); Bilirubin,Urine Negative (Negative); Blood,Urine Negative (Negative); Color,Urine Light Yellow; Glucose,Urine (UA) Negative (Negative); Ketones,Urine Negative (Negative); Leukocyte Esterase,Urine Trace (Negative); Mucus,Urine Rare /hpf; Nitrite,Urine Negative (Negative); Protein,Urine Negative (Negative); RBC,Urine <1 /hpf (0-5); Specific Gravity,Urine 1.006 (1.001-1.035); Squamous Epithelial Cell,Urine 1 /hpf (0-4); Urobilinogen,Urine <2.0 mg/dL (<2.0); WBC,Urine 1 /hpf (0-5)
[2019-10-24 22:56] LABS: Amphetamine Screen,Urine Not Detected (NotDetected); Barbiturate Screen,Urine Not Detected (NotDetected); Benzodiazepines Screen,Urine Detected (NotDetected); Cocaine Screen,Urine Not Detected (NotDetected); Methadone Screen, Urine Not Detected (NotDetected); Opiate Screen,Urine Not Detected (NotDetected); Oxycodone Screen, Urine Not Detected (NotDetected); Phencyclidine Screen,Urine Not Detected (NotDetected); Tricyclic Antidepressant,Urine Not Detected (NotDetected); Urn Cannabinoid Scrn Not Detected (NotDetected)
--- NOTE | 2019-10-24 23:07 | CT ---
EXAMINATION TYPE: CT brain wo con DATE OF EXAM: 10/24/2019 COMPARISON: 10/21/2019 HISTORY: ams CT DLP: 1063.4 mGycm Automated exposure control for dose reduction was used. There is some cerebral cortical atrophy. There is mild hypodensity in the white matter of the right p arietal lobe and left posterior frontal lobe. There is no midline shift. There is no sign of intracra nial hemorrhage. The calvarium is intact. IMPRESSION: Mild atrophy. White matter mild hypodensity consistent with some chronic small vessel ischemia. No ch krunal compared to recent exam. No acute intracranial abnormality.
[2019-10-24 23:13] LABS: Albumin 4.2 g/dL (3.5-5.0); Calcium 9.6 mg/dL (8.4-10.2); Potassium 4.2 mmol/L (3.5-5.1); Total Bilirubin 0.5 mg/dL (0.2-1.3); Total Protein 7.8 g/dL (6.3-8.2)
[2019-10-24 23:14] LABS: Basophils % (A) 1 %; Eosinophils # (A) 0.1 k/uL (0-0.7); Eosinophils % (A) 2 %; HCT 38.9 % (34.0-46.0); HGB 12.2 gm/dL (11.4-16.0); Hypochromasia Slight; Lymphocytes # (A) 1.1 k/uL (1.0-4.8); Lymphocytes % (A) 18 %; MCHC 31.4 g/dL (31.0-37.0); MCV 89.1 fL (80.0-100.0); Mean Platelet Volume 8.3; Monocytes # (A) 0.8 k/uL (0-1.0); Monocytes % (A) 13 %; Neutrophils # (A) 4.1 k/uL (1.3-7.7); Neutrophils % (A) 65 %; Platelet Count 333 k/uL (150-450); RBC 4.36 m/uL (3.80-5.40); RDW 15.9 % (11.5-15.5); WBC 6.4 k/uL (3.8-10.6)
[2019-10-24] MEDS ORDERED: NALOXONE 0.4 MG/ML 1 ML VIAL IV PRN (23:46)
[2019-10-25] MEDS: ACETAMINOPHEN TAB 325 MG TAB PO PRN ×3 (00:03→21:13)
[2019-10-25] MEDS: ASPIRIN 81 MG PO SCH (08:02)
[2019-10-25] MEDS: PANTOPRAZOLE 40 MG TABLET PO SCH (08:02)
[2019-10-25] MEDS: OXYBUTYNIN 15 MG TAB.ER.24 PO SCH (08:02)
[2019-10-25] MEDS: ATORVASTATIN 20 MG TAB PO SCH (08:02)
[2019-10-25] MEDS: CALAMINE/ZINC OXIDE LOTION 177 ML BTL TOPICAL SCH ×4 (08:02→23:41)
[2019-10-25] MEDS: ACYCLOVIR 400 MG/10 ML CUP PO SCH ×4 (08:48→21:15)
[2019-10-25] MEDS ORDERED: LOPERAMIDE 2 MG CAP PO PRN (10:12)
[2019-10-25] MEDS ORDERED: predniSONE 50 MG TAB PO SCH (10:15)
[2019-10-25] MEDS: BETAMETHASONE DIPROPIONATE 0.05% CREAM 15 GM TUBE TOPICAL SCH ×2 (12:11→23:41)
[2019-10-25] MEDS: MUPIROCIN 2% OINT 22 GM TUBE TOPICAL SCH ×3 (12:11→23:41)
[2019-10-25] MEDS: ACITRETIN 25 MG PO SCH (12:15)
[2019-10-25] MEDS: HYDROCORTISONE TOPICAL SCH ×2 (12:16→23:41)
[2019-10-25] MEDS: FOLIC ACID 1 MG TAB PO SCH (13:56)
--- NOTE | 2019-10-25 19:50 | P.HPIM ---
History of Present Illness H&P Date: 10/25/19 Chief Complaint: Hallucinating History of presenting complaint: This is a 69-year-old patient of visiting physicians Dr. Sanya Perez. Chronic stable medical conditions include Coronary artery disease with stent, COPD, GERD, Darier disease, MS, restless leg syndrome, bilateral leg cramps, DJD lumbar spine. Patient presents with 3 days of hallucinations. She was evalu ated to 3 days ago for a fall with injury by those no intracranial injury. She's been seeing things laying around example dock's. And she is available the same. She has chronic skin condition for which she takes multiple antihistaminics. She also been put on steroids. Home medications include A tivan, Atarax, Remeron, Claritin, Ambien,. These were held and patient is feeling somewhat better this morning. Review of systems: GEN.: Tired EYES: None HEENT: None NECK: None RESPIRATORY: Occasional wheezing CARDIOVASCULAR: None GASTROINTESTINAL: None GENITOURINARY: None MUSCULOSKELETAL: Joint pains LYMPHATICS: None HEMATOLOGICAL: None PSYCHIATRY: Hallucinations NEUROLOGICAL: None Past medical history to include: Coronary artery disease with stent, COPD, GERD, Darier disease, MS, restless leg syndrome, bilateral leg cramps with walking, DJD lumbar spine, pancreatitis, anxiety depression. Patient does have a legal guardian. Social history: Patient is in a care home. Smokes up to pack and a half a day. No alcohol. Alcohol occasionally. She'll history of opiate abuse back in 2014. Physical examination: VITAL SIGNS: 97.3, 58, 16, 148/81, 97% room air GENERAL: [BMI 20.9, sitting on bed, awake, itching. EYES: Pupils equal. Conjunctiva normal. HEENT: External appearance of nose and ears normal, oral cavity grossly normal. NECK: JVD not raised; masses not palpable. HEART: First and second heart sounds are normal; no edema. LUNGS: Respiratory rate increased, decreased breaths on some wheezing. ABDOMEN: Soft, nontender, liver spleen not palpable, no masses palpable. PSYCH: [Alert and oriented x3; mood and affect anxious MUSCULAR skeletal: Evidence of OA DERMATOLOGICAL: Dry skin, but does call many skin of the thumb. NEUROLOGICAL: Cranial nerves grossly intact; no facial asymmetry, power and sensation grossly intact. LYMPHATICS: No lymph nodes palpable in the axilla and neck INVESTIGATIONS, reviewed in the clinical context: White count 6.4 hemoglobin 12.2 platelets 333 potassium 4.2 creatinine 0.77 UA positive for leukoesterase trace Urine drug screen positive for benzodiazepine Computed tomography scan of the brain-chronic changes Assessment: -Visual hallucinations, possibly side effect of medications. Note that patient is on Atarax, Ativan, Remeron, Claritin and Ambien. Some of these were held last night. Patient getting a bit better this morning. Patient's skin is rather dry. Told her to watch so for now. Patient is to use emollient cream. Patient be watched for 24 hours. Medications are discussed with the patient. We'll use Ativan on a when necessary basis. DC Atarax. DC Claritin. Use Benadryl when necessary. DC Ambien. Patient is only on Remeron. Care was discussed the patient question also. Smoke cessation counseling: This was done with the patient. Nicotine patch is being given. More than 3 minutes was spent for this Past Medical History Past Medical History: Coronary Artery Disease (CAD), Chest Pain / Angina, COPD, GERD/Reflux, Musculoskeletal Disorder Additional Past Medical History / Comment(s): Darier Disease, MS, RLS, bilateral legs cramp when walking long distances, UTI, DJD lumbar spine, pancreatitis History of Any Multi-Drug Resistant Organisms: MRSA Date of last positivie culture/infection: 09/05/2012 MDRO Source:: Urine Past Surgical History: Cholecystectomy, Heart Catheterization With Stent, Hernia Repair, Hysterectomy, Orthopedic Surgery Additional Past Surgical History / Comment(s): surgeries on left leg due to accident; Four lipomas removed from lower back; bunionectomy on left foot in August 2013, states, bowel prolapsed and they put back in place Past Anesthesia/Blood Transfusion Reactions: No Reported Reaction Additional Past Anesthesia/Blood Transfusion Reaction / Comment(s): . Date of Last Stent Placement:: 2011 Past Psychological History: Anxiety, Depression Additional Psychological History / Comment(s): She is independent. reports having a Legal Gaurdian. She uses no assistive device. She does not drive. patient denies depression but found in old history Smoking Status: Current every day smoker Past Alcohol Use History: Occasional Additional Past Alcohol Use History / Comment(s): . Past Drug Use History: None Reported - Past Family History Father Family Medical History: No Reported History Additional Family Medical History / Comment(s): father at age 92 yrs. Mother Family Medical History: COPD Additional Family Medical History / Comment(s): Mother at age 62yrs. Medications and Allergies Home Medications Medication Instructions Recorded Confirmed Type Aspirin 81 mg PO DAILY #1 chewable 09/01/16 10/25/19 Rx Acetaminophen Tab [Tylenol Tab] 1,000 mg PO Q6H PRN 11/05/18 10/25/19 History Acitretin 25 mg PO BID 11/05/18 10/25/19 History Atorvastatin [Lipitor] 20 mg PO DAILY 11/05/18 10/25/19 History Folic Acid 1 mg PO DAILY 11/05/18 10/25/19 History LORazepam [Ativan] 1 mg PO BID 11/05/18 10/25/19 History Loperamide [Imodium] 2 mg PO DAILY PRN 11/05/18 10/25/19 History Loratadine [Claritin] 10 mg PO DAILY 11/05/18 10/25/19 History Mirtazapine [Remeron] 15 mg PO HS 11/05/18 10/25/19 History Omeprazole [PriLOSEC] 40 mg PO DAILY 11/05/18 10/25/19 History Oxybutynin ER [Ditropan Xl] 30 mg PO DAILY 11/05/18 10/25/19 History Zolpidem [Ambien] 10 mg PO HS PRN 11/05/18 10/25/19 History hydrOXYzine HCL [Atarax] 50 mg PO QID PRN #20 tab 09/28/19 10/25/19 Rx Betamethasone Dipropionate 1 applic TOPICAL BID PRN 10/25/19 10/25/19 History [Diprolene AF 0.05% Cream] Cyclobenzaprine [Flexeril] 10 mg PO TID PRN 10/25/19 10/25/19 History Eucerin Advanced Repair Cream 1 applicate TOPICAL DAILY 10/25/19 10/25/19 History Triamcinolone Acetonide 1 applic TOPICAL DAILY 10/25/19 10/25/19 History [Triamcinolone Acetonide 0.025%] amLODIPine [Norvasc] 5 mg PO DAILY 10/25/19 10/25/19 History traMADol-ACETAMINOP 37.5-325MG 1 tab PO QID PRN 10/25/19 10/25/19 History [Ultracet] Allergies Allergy/AdvReac Type Severity Reaction Status Date / Time erythromycin base Allergy Rash/Hives Verified 10/25/19 11:42 [Erythromycin Base] etodolac [From Lodine] Allergy Rash/Hives Verified 10/25/19 11:42 flurazepam [From Dalmane] Allergy Rash/Hives Verified 10/25/19 11:42 Penicillins Allergy Rash/Hives Verified 10/25/19 11:42 pentazocine lactate Allergy Rash/Hives Verified 10/25/19 11:42 [From Talwin] secobarbital sodium Allergy Rash/Hives Verified 10/25/19 11:42 [From Seconal] Sulfa (Sulfonamide Allergy Rash/Hives Verified 10/25/19 11:42 Antibiotics) Bleach (Sodium Hypochlorite) AdvReac Rash/Hives Verified 10/25/19 11:42 oatmeal Allergy Rash/Hives Uncoded 10/24/19 21:30 Physical Exam Vitals: Vital Signs Temp Pulse Pulse Resp BP BP Pulse Ox 10/25/19 09:00 98.4 F 96 14 141/82 91 L 10/25/19 03:30 98.4 F 78 16 127/70 94 L 10/25/19 00:56 98.4 F 70 16 161/99 97 10/24/19 23:49 98.1 F 81 18 166/86 94 L 10/24/19 22:48 90 18 149/92 96 10/24/19 21:23 97.3 F L 58 L 16 148/81 97 Intake and Output 10/24/19 10/25/19 10/25/19 22:59 06:59 14:59 Other: Weight 51.71 kg 51.71 kg Results CBC & Chem 7: 10/24/19 22:23 10/24/19 22:23 Labs: Abnormal Lab Results - Last 24 Hours (Table) 10/24/19 10/24/19 10/24/19 Range/Units 22:23 22:23 22:23 RDW 15.9 H (11.5-15.5) % AST 68 H (14-36) U/L Alkaline Phosphatase 128 H (38-126) U/L Ur Leukocyte Esterase Trace H (Negative) Urine Mucus Rare H (None) /hpf U Benzodiazepines Scrn Detected H (NotDetected) Thrombosis Risk Factor Assmnt - Choose All That Apply Each Risk Factor Represents 2 Points: Age 61-74 years Thrombosis Risk Factor Assessment Total Risk Factor Score: 2 Thrombosis Risk Factor Assessment Level: Low Risk
[2019-10-25] MEDS ORDERED: LORazepam 0.5 MG TAB PO PRN (19:51)
[2019-10-25] MEDS ORDERED: MIRTAZAPINE 15 MG TAB PO SCH (21:00)
[2019-10-25] MEDS: ENOXAPARIN 40 MG/0.4 ML SYRINGE SQ SCH (21:12)
[2019-10-25] MEDS: NICOTINE 21MG/24HR PATCH TRANSDERM SCH (21:12)
[2019-10-26 02:14] VITALS: RESP 16
[2019-10-26] MEDS: ATORVASTATIN 20 MG TAB PO SCH (08:41)
[2019-10-26] MEDS: FOLIC ACID 1 MG TAB PO SCH (08:41)
[2019-10-26] MEDS: OXYBUTYNIN 15 MG TAB.ER.24 PO SCH (08:41)
[2019-10-26] MEDS: ASPIRIN 81 MG PO SCH (08:41)
[2019-10-26] MEDS: NICOTINE 21MG/24HR PATCH TRANSDERM SCH (08:42)
[2019-10-26] MEDS: ACYCLOVIR 400 MG/10 ML CUP PO SCH ×2 (08:43→12:36)
[2019-10-26] MEDS: CALAMINE/ZINC OXIDE LOTION 177 ML BTL TOPICAL SCH ×2 (08:43→12:36)
[2019-10-26] MEDS: BETAMETHASONE DIPROPIONATE 0.05% CREAM 15 GM TUBE TOPICAL SCH (08:43)
[2019-10-26] MEDS: HYDROCORTISONE TOPICAL SCH (08:44)
[2019-10-26] MEDS: ACITRETIN 25 MG PO SCH (08:44)
[2019-10-26] MEDS: ENOXAPARIN 40 MG/0.4 ML SYRINGE SQ SCH (08:44)
[2019-10-26] MEDS: MUPIROCIN 2% OINT 22 GM TUBE TOPICAL SCH (08:45)
[2019-10-26] MEDS: PANTOPRAZOLE 40 MG TABLET PO SCH (08:46)
[2019-10-26] MEDS ORDERED: predniSONE 20 MG TAB PO SCH (09:00)
[2019-10-26 09:05] VITALS: BP 143/75; PULSE 82; TEMP 98.1
--- NOTE | 2019-10-26 23:10 | P.DS ---
Providers Date of admission: 10/24/19 23:51 Expected date of discharge: 10/26/19 Attending physician: Toni Carter Primary care physician: Sanya Duff MD Hospital Course: Chief Complaint: Hallucinating History of presenting complaint: This is a 69-year-old patient of visiting physicians Dr. Sanya Perez. Chronic stable medical conditions include Coronary artery disease with stent, COPD, GERD, Darier disease, MS, restless leg syndrome, bilateral leg cramps, DJD lumbar spine. Patient presents with 3 days of hallucinations. She was evaluated to 3 days ago for a fall with injury by those no intracranial injury. She's been seeing things laying around example dock's. And she is available the same. She has chronic skin condition for which she takes multiple antihistaminics. She also been put on steroids. Home medications include Ativan, Atarax, Remeron, Claritin, Ambien,. These were held and patient is feeling somewhat better this morning. today-had a lengthy talk with the patient.because of Ativan cutback 2.5 mg twice a day when necessary.Claritin Ambien at her next discontinued. May use Benadryl when necessary. Also advised not to use soap on the body and use creams. Physical examination: VITAL SIGNS: 98.1, 82, 16, 143 was 75, 96% room air GENERAL: sitting up, more comfortable EYES: Pupils equal. Conjunctiva normal. HEENT: External appearance of nose and ears normal, oral cavity grossly normal. NECK: JVD not raised; masses not palpable. HEART: First and second heart sounds are normal; no edema. LUNGS: Respiratory rate increased, decreased breaths on some wheezing. ABDOMEN: Soft, nontender, liver spleen not palpable, no masses palpable. PSYCH: [Alert and oriented x3; mood and affect anxious MUSCULAR skeletal: Evidence of OA DERMATOLOGICAL: Dry skin, but does call many skin of the thumb. INVESTIGATIONS, reviewed in the clinical context: White count 6.4 hemoglobin 12.2 platelets 333 potassium 4.2 creatinine 0.77 UA positive for leukoesterase trace Urine drug screen positive for benzodiazepine Computed tomography scan of the brain-chronic changes Assessment: -Visual hallucinations, possibly side effect of medications. Note that patient is on Atarax, Ativan, Remeron, Claritin and Ambien. Some of these were held last night. Patient getting a bit better this morning. Patient's skin is rather dry. Told her to watch so for now. Patient is to use emollient cream. Patient be watched for 24 hours. Medications are discussed with the patient. We'll use Ativan on a when necessary basis. DC Atarax. DC Claritin. Use Benadryl when necessary. DC Ambien. Patient is only on Remeron. Care was discussed the patient question also. -Coronary artery disease with stent -COPD in a current smoker -Chronic nicotine dependence patient cigarette smoker -GERD -darier disease -Restless leg syndrome -Chronic bilateral lower extremity cramping -DJD lumbar spine -anxiety depression otherwise specified disposition: Home Patient Condition at Discharge: Stable Plan - Discharge Summary Discharge Rx Participant: No New Discharge Prescriptions: New LORazepam [Ativan] 0.5 mg PO BID PRN #30 tab PRN Reason: Anxiety Nicotine 21Mg/24Hr Patch [Habitrol] 1 patch TRANSDERM DAILY #14 patch Hydrocortisone [Cortisone] 1 applicate TOPICAL BID predniSONE 10 mg PO DAILY #30 tab Continue Aspirin 81 mg PO DAILY #1 chewable Loperamide [Imodium] 2 mg PO DAILY PRN PRN Reason: Diarrhea Acitretin 25 mg PO BID Acetaminophen Tab [Tylenol] 1,000 mg PO Q6H PRN PRN Reason: Pain Omeprazole [PriLOSEC] 40 mg PO DAILY Folic Acid 1 mg PO DAILY Oxybutynin ER [Ditropan Xl] 30 mg PO DAILY Mirtazapine [Remeron] 15 mg PO HS Atorvastatin [Lipitor] 20 mg PO DAILY traMADol-ACETAMINOP 37.5-325MG [Ultracet] 1 tab PO QID PRN PRN Reason: Pain Triamcinolone Acetonide [Triamcinolone Acetonide 0.025%] 1 applic TOPICAL DAILY Cyclobenzaprine [Flexeril] 10 mg PO TID PRN PRN Reason: Muscle Spasm Betamethasone Dipropionate [Diprolene AF 0.05% Cream] 1 applic TOPICAL BID PRN PRN Reason: FLARE UPS Eucerin Advanced Repair Cream 1 applicate TOPICAL DAILY Discontinued Loratadine [Claritin] 10 mg PO DAILY Zolpidem [Ambien] 10 mg PO HS PRN PRN Reason: Insomnia LORazepam [Ativan] 1 mg PO BID hydrOXYzine HCL [Atarax] 50 mg PO QID PRN #20 tab PRN Reason: pain No Action amLODIPine [Norvasc] 5 mg PO DAILY Discharge Medication List Aspirin 81 mg PO DAILY #1 chewable 09/01/16 [Rx] Acetaminophen Tab [Tylenol] 1,000 mg PO Q6H PRN 11/05/18 [History] Acitretin 25 mg PO BID 11/05/18 [History] Atorvastatin [Lipitor] 20 mg PO DAILY 11/05/18 [History] Folic Acid 1 mg PO DAILY 11/05/18 [History] Loperamide [Imodium] 2 mg PO DAILY PRN 11/05/18 [History] Mirtazapine [Remeron] 15 mg PO HS 11/05/18 [History] Omeprazole [PriLOSEC] 40 mg PO DAILY 11/05/18 [History] Oxybutynin ER [Ditropan Xl] 30 mg PO DAILY 11/05/18 [History] Betamethasone Dipropionate [Diprolene AF 0.05% Cream] 1 applic TOPICAL BID PRN 10/25/19 [History] Cyclobenzaprine [Flexeril] 10 mg PO TID PRN 10/25/19 [History] Eucerin Advanced Repair Cream 1 applicate TOPICAL DAILY 10/25/19 [History] Triamcinolone Acetonide [Triamcinolone Acetonide 0.025%] 1 applic TOPICAL DAILY 10/25/19 [History] amLODIPine [Norvasc] 5 mg PO DAILY 10/25/19 [History] traMADol-ACETAMINOP 37.5-325MG [Ultracet] 1 tab PO QID PRN 10/25/19 [History] Hydrocortisone [Cortisone] 1 applicate TOPICAL BID 10/26/19 [Rx] LORazepam [Ativan] 0.5 mg PO BID PRN #30 tab 10/26/19 [Rx] Nicotine 21Mg/24Hr Patch [Habitrol] 1 patch TRANSDERM DAILY #14 patch 10/26/19 [Rx] predniSONE 10 mg PO DAILY #30 tab 10/26/19 [Rx] Follow up Appointment(s)/Referral(s): Sanya Duff MD [Primary Care Provider] - 10/28/19 (Video Chat scheduled) Patient Instructions/Handouts: Hallucinations (DC) Discharge Disposition: HOME SELF-CARE
== END 2019-10-26 14:55 | disposition home or self-care (01) ==
LOC: EC 21:06 → 1SOBS 23:51
PROVIDERS: ADMIT Hospitalist; ATTEND Hospitalist
DX: R44.1 Visual hallucinations (principal); I25.10 Atherosclerotic heart disease of native coronary artery without angina pectoris; J44.9 Chronic obstructive pulmonary disease, unspecified; F17.210 Nicotine dependence, cigarettes, uncomplicated; K21.9 Gastro-esophageal reflux disease without esophagitis; G25.81 Restless legs syndrome; Q82.8 Other specified congenital malformations of skin; M47.816 Spondylosis without myelopathy or radiculopathy, lumbar region; G35 Multiple sclerosis; M19.90 Unspecified osteoarthritis, unspecified site; F41.9 Anxiety disorder, unspecified; F32.9 Major depressive disorder, single episode, unspecified; K13.70 Unspecified lesions of oral mucosa; S01.112D Laceration without foreign body of left eyelid and periocular area, subsequent encounter; Z91.81 History of falling; Z79.82 Long term (current) use of aspirin; Z79.899 Other long term (current) drug therapy; Z79.891 Long term (current) use of opiate analgesic; Z88.1 Allergy status to other antibiotic agents; Z88.0 Allergy status to penicillin; Z88.2 Allergy status to sulfonamides; Z91.018 Allergy to other foods; Z91.048 Other nonmedicinal substance allergy status; Z87.19 Personal history of other diseases of the digestive system; Z87.440 Personal history of urinary (tract) infections; Z86.14 Personal history of Methicillin resistant Staphylococcus aureus infection; Z90.710 Acquired absence of both cervix and uterus; Z95.5 Presence of coronary angioplasty implant and graft; Z90.49 Acquired absence of other specified parts of digestive tract; Z82.5 Family history of asthma and other chronic lower respiratory diseases; Z86.018 Personal history of other benign neoplasm; Z87.898 Personal history of other specified conditions
CPT/HCPCS: 96372 ×2; 99285; 36415; 94760; 80053; 85025; 81001; 80306; 70450; G0378 ×2; S4990; J1650 ×2; J7512

== ENCOUNTER 2019-11-21 02:15 | Emergency (ER) | payer MEDICARE ==
[2019-11-21 02:24] VITALS: TEMP 98.2
--- NOTE | 2019-11-21 02:59 | ED ---
Chest Pain HPI - General Chief Complaint: Chest Pain Stated Complaint: CHEST PAIN Time Seen by Provider: 11/21/19 02:19 Source: patient, EMS Mode of arrival: EMS Limitations: no limitations - History of Present Illness Initial Comments: Nicole is a pleasant 69-year-old female with extensive psychiatric history who presents to ER today for evaluation of right-sided chest pain for 3 days duration. Patient reports that 3 days ago she had a fall in the shower striking her right arm and right side of her chest. She states that since that time she has any pain when she reaches her stretches with her right arm. She reports that it feels like a tight pulling in her chest. She denies any exertional symptoms, diaphoresis, lightheadedness or shortness of breath. - Related Data Home Medications Medication Instructions Recorded Confirmed Acetaminophen Tab [Tylenol] 1,000 mg PO Q6H PRN 11/05/18 10/25/19 Acitretin 25 mg PO BID 11/05/18 10/25/19 Atorvastatin [Lipitor] 20 mg PO DAILY 11/05/18 10/25/19 Folic Acid 1 mg PO DAILY 11/05/18 10/25/19 Loperamide [Imodium] 2 mg PO DAILY PRN 11/05/18 10/25/19 Mirtazapine [Remeron] 15 mg PO HS 11/05/18 10/25/19 Omeprazole [PriLOSEC] 40 mg PO DAILY 11/05/18 10/25/19 Oxybutynin ER [Ditropan Xl] 30 mg PO DAILY 11/05/18 10/25/19 Betamethasone Dipropionate 1 applic TOPICAL BID PRN 10/25/19 10/25/19 [Diprolene AF 0.05% Cream] Cyclobenzaprine [Flexeril] 10 mg PO TID PRN 10/25/19 10/25/19 Eucerin Advanced Repair Cream 1 applicate TOPICAL DAILY 10/25/19 10/25/19 Triamcinolone Acetonide 1 applic TOPICAL DAILY 10/25/19 10/25/19 [Triamcinolone Acetonide 0.025%] amLODIPine [Norvasc] 5 mg PO DAILY 10/25/19 10/25/19 traMADol-ACETAMINOP 37.5-325MG 1 tab PO QID PRN 10/25/19 10/25/19 [Ultracet] Previous Rx's Medication Instructions Recorded Aspirin 81 mg PO DAILY #1 chewable 09/01/16 Hydrocortisone [Cortisone] 1 applicate TOPICAL BID 10/26/19 LORazepam [Ativan] 0.5 mg PO BID PRN #30 tab 10/26/19 Nicotine 21Mg/24Hr Patch [Habitrol] 1 patch TRANSDERM DAILY #14 patch 10/26/19 predniSONE 10 mg PO DAILY #30 tab 10/26/19 Lidocaine 5% Patch [Lidoderm] 1 patch TOPICAL DAILY #30 patch 11/21/19 Allergies Allergy/AdvReac Type Severity Reaction Status Date / Time erythromycin base Allergy Rash/Hives Verified 11/21/19 02:25 [Erythromycin Base] etodolac [From Lodine] Allergy Rash/Hives Verified 11/21/19 02:25 flurazepam [From Dalmane] Allergy Rash/Hives Verified 11/21/19 02:25 Penicillins Allergy Rash/Hives Verified 11/21/19 02:25 pentazocine lactate Allergy Rash/Hives Verified 11/21/19 02:25 [From Talwin] secobarbital sodium Allergy Rash/Hives Verified 11/21/19 02:25 [From Seconal] Sulfa (Sulfonamide Allergy Rash/Hives Verified 11/21/19 02:25 Antibiotics) Bleach (Sodium Hypochlorite) AdvReac Rash/Hives Verified 11/21/19 02:25 oatmeal Allergy Rash/Hives Uncoded 11/21/19 02:25 Review of Systems ROS Statement: Those systems with pertinent positive or pertinent negative responses have been documented in the HPI. ROS Other: All systems not noted in ROS Statement are negative. EKG Findings - EKG Comments: EKG Findings:: EKG was obtained due to complaint of chest pain, EKG was obtained at 2:44 AM, rate is 81, rhythm is sinus there is a normal axis, there are normal intervals, VA 132, QRS 82, QTc 450 there are no acute ST elevations or depressions there is no evidence of acute ischemia Past Medical History Past Medical History: Coronary Artery Disease (CAD), Chest Pain / Angina, COPD, GERD/Reflux, Musculoskeletal Disorder Additional Past Medical History / Comment(s): Darier Disease, MS, RLS, bilateral legs cramp when walking long distances, UTI, DJD lumbar spine, pancreatitis History of Any Multi-Drug Resistant Organisms: MRSA Date of last positivie culture/infection: 09/05/2012 MDRO Source:: Urine Past Surgical History: Cholecystectomy, Heart Catheterization With Stent, Hernia Repair, Hysterectomy, Orthopedic Surgery Additional Past Surgical History / Comment(s): surgeries on left leg due to accident; Four lipomas removed from lower back; bunionectomy on left foot in August 2013, states, bowel prolapsed and they put back in place Past Anesthesia/Blood Transfusion Reactions: No Reported Reaction Additional Past Anesthesia/Blood Transfusion Reaction / Comment(s): . Date of Last Stent Placement:: 2011 Past Psychological History: Anxiety, Depression Smoking Status: Current every day smoker Past Alcohol Use History: Occasional Past Drug Use History: None Reported - Past Family History Father Family Medical History: No Reported History Additional Family Medical History / Comment(s): father at age 92 yrs. Mother Family Medical History: COPD Additional Family Medical History / Comment(s): Mother at age 62yrs. General Exam - General Exam Comments Initial Comments: Physical Exam GENERAL: Patient is well-developed and well-nourished. Patient is nontoxic and well-h ydrated and is in no distress. HENT: Normocephalic, Atraumatic. EYES: PERRL, EOMI PULMONARY: Unlabored respirations. No audible rales rhonchi or wheezing was noted. CARDIOVASCULAR: There is a regular rate and rhythm without any murmurs gallops or rubs. ABDOMEN: Soft and nontender with normal bowel sounds. SKIN: Bruising on right arm over the humerus consistent with history of fall : Deferred NEUROLOGIC: Patient is alert and oriented x3. Moving all extremities spontaneously MUSCULOSKELETAL: Normal extremities with adequate strength and full range of motion. No lower extremity swelling or edema. No calf tenderness. PSYCHIATRIC: Normal psychiatric evaluation. Limitations: no limitations Course Vital Signs 11/21/19 11/21/19 02:19 04:51 Temperature 98.2 F Pulse Rate 93 87 Respiratory 20 18 Rate Blood Pressure 153/91 145/92 O2 Sat by Pulse 98 95 Oximetry Chest Pain MDM - MDM The patient was seen and evaluated upon arrival Initially patient was complaining of chest pain and was very nonspecific, chest pain workup was initiated however upon reevaluation patient remembers that she had a fall 3 days ago and thinks the pain is related to that Chest x-ray shows no pneumothorax no obvious rib fractures Patient's pain will be treated with Lidoderm patch Patient reported resolution of her pain after Lidoderm patch and requested discharge home. She'll be discharged home with prescription for Lidoderm patch Disposition Clinical Impression: Musculoskeletal chest pain Disposition: HOME SELF-CARE Condition: Stable Instructions (If sedation given, give patient instructions): Chest Pain (ED) Prescriptions: Lidocaine 5% Patch [Lidoderm] 1 patch TOPICAL DAILY #30 patch Is patient prescribed a controlled substance at d/c from ED?: No Referrals: None,Stated [Primary Care Provider] - 1-2 days
[2019-11-21 03:27] LABS: Basophils % (A) 1 %; Eosinophils # (A) 0.3 k/uL (0-0.7); Eosinophils % (A) 4 %; HCT 34.8 % (34.0-46.0); HGB 10.8 gm/dL (11.4-16.0); Hypochromasia Slight; Lymphocytes # (A) 1.2 k/uL (1.0-4.8); Lymphocytes % (A) 20 %; MCH 27.7 pg (25.0-35.0); MCHC 30.9 g/dL (31.0-37.0); MCV 89.7 fL (80.0-100.0); Mean Platelet Volume 7.2; Monocytes # (A) 0.5 k/uL (0-1.0); Monocytes % (A) 9 %; Neutrophils # (A) 3.8 k/uL (1.3-7.7); Neutrophils % (A) 64 %; Platelet Count 407 k/uL (150-450); RBC 3.88 m/uL (3.80-5.40); RDW 15.6 % (11.5-15.5); WBC 5.9 k/uL (3.8-10.6)
[2019-11-21 03:36] LABS: Albumin 4.2 g/dL (3.5-5.0); Calcium 9.6 mg/dL (8.4-10.2); Magnesium 1.8 mg/dL (1.6-2.3); Potassium 3.8 mmol/L (3.5-5.1); Total Bilirubin 0.4 mg/dL (0.2-1.3)
[2019-11-21 03:37] LABS: INR 0.9 (<1.2)
[2019-11-21] MEDS ORDERED: LIDOCAINE 5% PATCH TOPICAL STA (04:01)
[2019-11-21 04:12] LABS: Partial Thromboplastin Time 24.2 sec (22.0-30.0); Prothrombin Time 9.7 sec (9.0-12.0)
--- NOTE | 2019-11-21 04:28 | XR ---
EXAMINATION TYPE: XR chest 2V DATE OF EXAM: 11/21/2019 COMPARISON: 11/29/2016 HISTORY: Chest pain TECHNIQUE: FINDINGS: There is coarse interstitial density in the lungs. There is pulmonary interstitial edema. H eart size is fairly normal. Thoracic aorta is atheromatous. There is small linear density right lung base. IMPRESSION: There is new mild pulmonary interstitial edema compared to old exam. This could be mild a cute heart failure.
[2019-11-21 05:10] VITALS: BP 145/92; PULSE 87; RESP 18
== END 2019-11-21 04:55 | disposition home or self-care (01) ==
LOC: EC 02:15
DX: S40.021A Contusion of right upper arm, initial encounter (principal); R07.9 Chest pain, unspecified; I25.119 Atherosclerotic heart disease of native coronary artery with unspecified angina pectoris; K21.9 Gastro-esophageal reflux disease without esophagitis; F41.9 Anxiety disorder, unspecified; F32.9 Major depressive disorder, single episode, unspecified; G25.81 Restless legs syndrome; F17.200 Nicotine dependence, unspecified, uncomplicated; Z79.899 Other long term (current) drug therapy; Z88.1 Allergy status to other antibiotic agents; Z88.0 Allergy status to penicillin; Z88.2 Allergy status to sulfonamides; Z88.6 Allergy status to analgesic agent; Z88.8 Allergy status to other drugs, medicaments and biological substances; Z88.5 Allergy status to narcotic agent; Z91.048 Other nonmedicinal substance allergy status; Z91.018 Allergy to other foods; Z95.5 Presence of coronary angioplasty implant and graft; W18.2XXA Fall in (into) shower or empty bathtub, initial encounter
CPT/HCPCS: 36415; 71046; 80053; 83735; 84484; 85025; 85610; 85730; 93005; 99285

== ENCOUNTER 2019-11-29 22:46 | Emergency (ER) | payer MEDICARE ==
--- NOTE | 2019-11-29 22:55 | ED ---
Chest Pain HPI - General Stated Complaint: chest pain Time Seen by Provider: 11/29/19 22:52 - History of Present Illness Initial Comments: Nicole is a pleasant 69yo F known to the emergency department for frequent visits. Patient presents today via EMS from her snf with a complaint ofNo evidence of ACS, pericarditis, myocarditis, pulmonary embolism, pneumothorax, pneumonia, Zoster, or esophageal perforation. Historically not abrupt in onset, tearing or ripping, pulses symmetric, no evidence of aortic dissection. That is sharp in nature left-sided has been present since she woke up in the morning. Not associated with any diaphoresis lightheadedness or shortness of breath. Chest pain is worse with palpation. In addition patient also reports that she feels like her restless leg is acting up, her legs were jerking she believes she did get her night medications and didn't take her Remeron. - Related Data Home Medications Medication Instructions Recorded Confirmed Acetaminophen Tab [Tylenol] 1,000 mg PO Q6H PRN 11/05/18 10/25/19 Acitretin 25 mg PO BID 11/05/18 10/25/19 Atorvastatin [Lipitor] 20 mg PO DAILY 11/05/18 10/25/19 Folic Acid 1 mg PO DAILY 11/05/18 10/25/19 Loperamide [Imodium] 2 mg PO DAILY PRN 11/05/18 10/25/19 Mirtazapine [Remeron] 15 mg PO HS 11/05/18 10/25/19 Omeprazole [PriLOSEC] 40 mg PO DAILY 11/05/18 10/25/19 Oxybutynin ER [Ditropan Xl] 30 mg PO DAILY 11/05/18 10/25/19 Betamethasone Dipropionate 1 applic TOPICAL BID PRN 10/25/19 10/25/19 [Diprolene AF 0.05% Cream] Cyclobenzaprine [Flexeril] 10 mg PO TID PRN 10/25/19 10/25/19 Eucerin Advanced Repair Cream 1 applicate TOPICAL DAILY 10/25/19 10/25/19 Triamcinolone Acetonide 1 applic TOPICAL DAILY 10/25/19 10/25/19 [Triamcinolone Acetonide 0.025%] amLODIPine [Norvasc] 5 mg PO DAILY 10/25/19 10/25/19 traMADol-ACETAMINOP 37.5-325MG 1 tab PO QID PRN 10/25/19 10/25/19 [Ultracet] Previous Rx's Medication Instructions Recorded Aspirin 81 mg PO DAILY #1 chewable 09/01/16 Hydrocortisone [Cortisone] 1 applicate TOPICAL BID 10/26/19 LORazepam [Ativan] 0.5 mg PO BID PRN #30 tab 10/26/19 Nicotine 21Mg/24Hr Patch [Habitrol] 1 patch TRANSDERM DAILY #14 patch 10/26/19 predniSONE 10 mg PO DAILY #30 tab 10/26/19 Lidocaine 5% Patch [Lidoderm] 1 patch TOPICAL DAILY #30 patch 11/21/19 Allergies Allergy/AdvReac Type Severity Reaction Status Date / Time erythromycin base Allergy Rash/Hives Verified 11/21/19 02:25 [Erythromycin Base] etodolac [From Lodine] Allergy Rash/Hives Verified 11/21/19 02:25 flurazepam [From Dalmane] Allergy Rash/Hives Verified 11/21/19 02:25 Penicillins Allergy Rash/Hives Verified 11/21/19 02:25 pentazocine lactate Allergy Rash/Hives Verified 11/21/19 02:25 [From Talwin] secobarbital sodium Allergy Rash/Hives Verified 11/21/19 02:25 [From Seconal] Sulfa (Sulfonamide Allergy Rash/Hives Verified 11/21/19 02:25 Antibiotics) Bleach (Sodium Hypochlorite) AdvReac Rash/Hives Verified 11/21/19 02:25 oatmeal Allergy Rash/Hives Uncoded 11/21/19 02:25 Review of Systems ROS Statement: Those systems with pertinent positive or pertinent negative responses have been documented in the HPI. ROS Other: All systems not noted in ROS Statement are negative. EKG Findings - EKG Comments: EKG Findings:: EKG was obtained due to complaint of chest pain, EKG was obtained at 2254, rate is 102 rhythm is sinus tachycardia, there is a normal axis, normal intervals ND 124, QRS 70, QTC 479 there are no acute ST elevations or depressions no evidence of acute ischemia or infarction. Past Medical History Past Medical History: Coronary Artery Disease (CAD), Chest Pain / Angina, COPD, GERD/Reflux, Musculoskeletal Disorder Additional Past Medical History / Comment(s): Darier Disease, MS, RLS, bilateral legs cramp when walking long distances, UTI, DJD lumbar spine, pancreatitis History of Any Multi-Drug Resistant Organisms: MRSA Date of last positivie culture/infection: 09/05/2012 MDRO Source:: Urine Past Surgical History: Cholecystectomy, Heart Catheterization With Stent, Hernia Repair, Hysterectomy, Orthopedic Surgery Additional Past Surgical History / Comment(s): surgeries on left leg due to accident; Four lipomas removed from lower back; bunionectomy on left foot in August 2013, states, bowel prolapsed and they put back in place Past Anesthesia/Blood Transfusion Reactions: No Reported Reaction Additional Past Anesthesia/Blood Transfusion Reaction / Comment(s): . Date of Last Stent Placement:: 2011 Past Psychological History: Anxiety, Depression Smoking Status: Current every day smoker Past Alcohol Use History: Occasional Past Drug Use History: None Reported - Past Family History Father Family Medical History: No Reported History Additional Family Medical History / Comment(s): father at age 92 yrs. Mother Family Medical History: COPD Additional Family Medical History / Comment(s): Mother at age 62yrs. General Exam - General Exam Comments Initial Comments: Physical Exam GENERAL: Chronically ill appearing HENT: Normocephalic, Atraumatic. EYES: PERRL, EOMI PULMONARY: Unlabored respirations. No audible rales rhonchi or wheezing was noted. CARDIOVASCULAR: There is a regular rate and rhythm without any murmurs gallops or rubs. Reproducible pain with palpation of left-sided chest wall ABDOMEN: Soft and nontender with normal bowel sounds. SKIN: Chronic changes due to patient's chronic rash of Dariers disease, no acute : Deferred NEUROLOGIC: Patient is alert and oriented x3. Moving all extremities spontaneously MUSCULOSKELETAL: Normal extremities with adequate strength and full range of motion. No lower extremity swelling or edema. No calf tenderness. PSYCHIATRIC: Normal psychiatric evaluation. Course Vital Signs 11/29/19 11/30/19 22:53 01:04 Temperature 97.6 F 98.9 F Pulse Rate 104 H 89 Respiratory 18 18 Rate Blood Pressure 155/103 169/99 O2 Sat by Pulse 96 97 Oximetry Chest Pain MDM - MDM The patient was seen and evaluated, history is obtained from the patient review of medical record Patient reports 16 hours of constant sharp left-sided chest pain reproducible In addition patient reports she is feeling agitated and jittery Labs are obtained and resulted with mildly elevated creatinine kinase, patient did receive IV fluids labs are otherwise unremarkable troponin is not elevated given that she reports pain that is been persistent for 16 hours with a negative troponin and normal EKG I don't feel patient warrants further workup for ACS. Patient was noted to be somewhat restless and was given Ativan. At this time patient states she is comfortable with plan for discharge home. Disposition Clinical Impression: Atypical chest pain Disposition: HOME SELF-CARE Condition: Stable Is patient prescribed a controlled substance at d/c from ED?: No Referrals: Sanya Duff MD [Primary Care Provider] - 1-2 days
[2019-11-29 22:58] VITALS: RESP 18
[2019-11-29] MEDS ORDERED: SODIUM CHLORIDE 0.9% 500 ML 500 ML IV STA (23:09)
--- NOTE | 2019-11-29 23:25 | XR ---
EXAMINATION TYPE: XR chest 2V DATE OF EXAM: 11/29/2019 COMPARISON: 11/21/2019 HISTORY: Chest pain TECHNIQUE: 2 views FINDINGS: Heart is normal. Lungs are clear of consolidation. There are no hilar masses. Thoracic aort a is atheromatous. There are chest leads. There is osteopenia. There are some emphysematous changes i n the upper lobes. IMPRESSION: COPD. No active cardiopulmonary disease. There is improved inspiration compared to old ex am. No heart failure.
[2019-11-29 23:28] LABS: Basophils # (A) 0.1 k/uL (0-0.2); Basophils % (A) 1 %; Eosinophils # (A) 0.2 k/uL (0-0.7); Eosinophils % (A) 3 %; HCT 35.7 % (34.0-46.0); HGB 11.1 gm/dL (11.4-16.0); Hypochromasia Slight; Lymphocytes # (A) 2.1 k/uL (1.0-4.8); Lymphocytes % (A) 27 %; MCH 28.8 pg (25.0-35.0); MCHC 31.2 g/dL (31.0-37.0); MCV 92.3 fL (80.0-100.0); Mean Platelet Volume 6.9; Monocytes # (A) 0.7 k/uL (0-1.0); Monocytes % (A) 9 %; Neutrophils # (A) 4.4 k/uL (1.3-7.7); Neutrophils % (A) 57 %; Platelet Count 455 k/uL (150-450); RBC 3.87 m/uL (3.80-5.40); RDW 15.4 % (11.5-15.5); WBC 7.9 k/uL (3.8-10.6)
[2019-11-29 23:40] LABS: Albumin 4.1 g/dL (3.5-5.0); Calcium 9.4 mg/dL (8.4-10.2); Magnesium 1.7 mg/dL (1.6-2.3); Potassium 4.3 mmol/L (3.5-5.1); Total Bilirubin 0.4 mg/dL (0.2-1.3); Total Protein 7.8 g/dL (6.3-8.2)
[2019-11-30] MEDS ORDERED: LORazepam 2 MG/ML INJ IV STA (00:11)
[2019-11-30 00:22] LABS: Partial Thromboplastin Time 24.4 sec (22.0-30.0); Prothrombin Time 10.6 sec (9.0-12.0)
[2019-11-30 01:06] VITALS: BP 169/99; PULSE 89; TEMP 98.9
== END 2019-11-30 01:04 | disposition home or self-care (01) ==
LOC: EC 22:46
DX: R07.89 Other chest pain (principal); F32.9 Major depressive disorder, single episode, unspecified; F41.9 Anxiety disorder, unspecified; E78.5 Hyperlipidemia, unspecified; K21.9 Gastro-esophageal reflux disease without esophagitis; F17.200 Nicotine dependence, unspecified, uncomplicated; Z79.899 Other long term (current) drug therapy; Z88.0 Allergy status to penicillin; Z88.2 Allergy status to sulfonamides; Z88.1 Allergy status to other antibiotic agents; Z88.8 Allergy status to other drugs, medicaments and biological substances; Z91.018 Allergy to other foods; Z91.048 Other nonmedicinal substance allergy status; Z86.14 Personal history of Methicillin resistant Staphylococcus aureus infection; Z95.5 Presence of coronary angioplasty implant and graft; Z90.710 Acquired absence of both cervix and uterus
CPT/HCPCS: 36415; 71046; 80053; 82550; 83735; 84484; 85025; 85610; 85730; 93005; 96361; 96374; 99285

== ENCOUNTER 2019-12-12 23:50 | Emergency (ER) | payer MEDICARE ==
[2019-12-13] MEDS ORDERED: SODIUM CHLORIDE 0.9% 500 ML 500 ML IV STA (00:06)
[2019-12-13 00:21] LABS: Basophils % (A) 0 %; Eosinophils # (A) 0.1 k/uL (0-0.7); Eosinophils % (A) 2 %; HCT 36.7 % (34.0-46.0); HGB 11.1 gm/dL (11.4-16.0); Hypochromasia Moderate; Lymphocytes # (A) 1.1 k/uL (1.0-4.8); Lymphocytes % (A) 14 %; MCHC 30.2 g/dL (31.0-37.0); MCV 92.8 fL (80.0-100.0); Mean Platelet Volume 7.2; Monocytes # (A) 0.3 k/uL (0-1.0); Monocytes % (A) 4 %; Neutrophils # (A) 5.9 k/uL (1.3-7.7); Neutrophils % (A) 79 %; Platelet Count 526 k/uL (150-450); RBC 3.95 m/uL (3.80-5.40); WBC 7.5 k/uL (3.8-10.6)
[2019-12-13 00:33] LABS: ALT 20 U/L (4-34); AST 39 U/L (14-36); African American GFR (CKD) >90 (>60 ml/min/1.73 sqM); Albumin 3.8 g/dL (3.5-5.0); Alkaline Phosphatase 108 U/L (38-126); Anion Gap 8 mmol/L; Blood Urea Nitrogen 14 mg/dL (7-17); Carbon Dioxide 23 mmol/L (22-30); Chloride 108 mmol/L (98-107); Glucose 144 mg/dL (74-99); Magnesium 1.7 mg/dL (1.6-2.3); Non-African American GFR(CKD) 82 (>60 ml/min/1.73 sqM); Potassium 4.2 mmol/L (3.5-5.1); Sodium 139 mmol/L (137-145); Total Bilirubin 0.4 mg/dL (0.2-1.3); Total Protein 7.2 g/dL (6.3-8.2)
[2019-12-13 00:36] LABS: INR 0.9 (<1.2); Prothrombin Time 9.9 sec (9.0-12.0)
[2019-12-13 00:42] LABS: Partial Thromboplastin Time 20.6 sec (22.0-30.0)
--- NOTE | 2019-12-13 00:53 | XR ---
EXAM: XR Chest, 2 Views CLINICAL HISTORY: Chest pain. TECHNIQUE: Frontal and lateral views of the chest. COMPARISON: No previous studies. FINDINGS: Lungs: The lungs are well aerated. Pleural space: Unremarkable. No pneumothorax. Heart: Cardiomediastinal silhouette unremarkable. Mediastinum: See above. Bones/joints: Osteopenia. Gentle levoscoliosis of the thoracic spine. Soft tissues: The soft tissues are within normal limits. Vasculature: Atherosclerotic disease of the aortic knob. IMPRESSION: 1. Elevation of the left hemidiaphragm. 2. Osteopenia. 3. No active disease.
[2019-12-13 01:22] VITALS: BP 141/76; PULSE 79; RESP 16; TEMP 98.4
--- NOTE | 2019-12-13 01:25 | ED ---
Chest Pain HPI - General Chief Complaint: Chest Pain Stated Complaint: chest pain Time Seen by Provider: 12/13/19 00:00 Source: patient, EMS Mode of arrival: EMS Limitations: no limitations - History of Present Illness Initial Comments: Patient is a 69-year-old female, well-known to the ER, presenting to emergency Department via EMS with complaints of chest pains. Patient states she went to [facility] yesterday for same complaint. She states she felt better so she left the hospital. Patient states it started back up today so she decided be se en. She denies any fever, chills, shortness of breath, palpitations. She states the pain gets worse with movement. She denies any falls or trauma. She has no further complaints at this time. Upon arrival to the ER, her vital signs are stable. - Related Data Home Medications Medication Instructions Recorded Confirmed Acetaminophen Tab [Tylenol] 1,000 mg PO Q6H PRN 11/05/18 10/25/19 Acitretin 25 mg PO BID 11/05/18 10/25/19 Atorvastatin [Lipitor] 20 mg PO DAILY 11/05/18 10/25/19 Folic Acid 1 mg PO DAILY 11/05/18 10/25/19 Loperamide [Imodium] 2 mg PO DAILY PRN 11/05/18 10/25/19 Mirtazapine [Remeron] 15 mg PO HS 11/05/18 10/25/19 Omeprazole [PriLOSEC] 40 mg PO DAILY 11/05/18 10/25/19 Oxybutynin ER [Ditropan Xl] 30 mg PO DAILY 11/05/18 10/25/19 Betamethasone Dipropionate 1 applic TOPICAL BID PRN 10/25/19 10/25/19 [Diprolene AF 0.05% Cream] Cyclobenzaprine [Flexeril] 10 mg PO TID PRN 10/25/19 10/25/19 Eucerin Advanced Repair Cream 1 applicate TOPICAL DAILY 10/25/19 10/25/19 Triamcinolone Acetonide 1 applic TOPICAL DAILY 10/25/19 10/25/19 [Triamcinolone Acetonide 0.025%] amLODIPine [Norvasc] 5 mg PO DAILY 10/25/19 10/25/19 traMADol-ACETAMINOP 37.5-325MG 1 tab PO QID PRN 10/25/19 10/25/19 [Ultracet] Previous Rx's Medication Instructions Recorded Aspirin 81 mg PO DAILY #1 chewable 09/01/16 Hydrocortisone [Cortisone] 1 applicate TOPICAL BID 10/26/19 LORazepam [Ativan] 0.5 mg PO BID PRN #30 tab 10/26/19 Nicotine 21Mg/24Hr Patch [Habitrol] 1 patch TRANSDERM DAILY #14 patch 10/26/19 predniSONE 10 mg PO DAILY #30 tab 10/26/19 Lidocaine 5% Patch [Lidoderm] 1 patch TOPICAL DAILY #30 patch 11/21/19 Allergies Allergy/AdvReac Type Severity Reaction Status Date / Time erythromycin base Allergy Rash/Hives Verified 12/12/19 23:58 [Erythromycin Base] etodolac [From Lodine] Allergy Rash/Hives Verified 12/12/19 23:58 flurazepam [From Dalmane] Allergy Rash/Hives Verified 12/12/19 23:58 Penicillins Allergy Rash/Hives Verified 12/12/19 23:58 pentazocine lactate Allergy Rash/Hives Verified 12/12/19 23:58 [From Talwin] secobarbital sodium Allergy Rash/Hives Verified 12/12/19 23:58 [From Seconal] Sulfa (Sulfonamide Allergy Rash/Hives Verified 12/12/19 23:58 Antibiotics) Bleach (Sodium Hypochlorite) AdvReac Rash/Hives Verified 12/12/19 23:58 oatmeal Allergy Rash/Hives Uncoded 12/12/19 23:58 Review of Systems ROS Statement: Those systems with pertinent positive or pertinent negative responses have been documented in the HPI. ROS Other: All systems not noted in ROS Statement are negative. EKG Findings - EKG Comments: EKG Findings:: Normal sinus rhythm, normal ECG, no signs of acute ischemia. Ventricular rate 92, W[place] interval 112, QT 360. Past Medical History Past Medical History: Coronary Artery Disease (CAD), Chest Pain / Angina, COPD, GERD/Reflux, Musculoskeletal Disorder Additional Past Medical History / Comment(s): Darier Disease, MS, RLS, bilateral legs cramp when walking long distances, UTI, DJD lumbar spine, pancreatitis History of Any Multi-Drug Resistant Organisms: MRSA Date of last positivie culture/infection: 09/05/2012 MDRO Source:: Urine Past Surgical History: Cholecystectomy, Heart Catheterization With Stent, Hernia Repair, Hysterectomy, Orthopedic Surgery Additional Past Surgical History / Comment(s): surgeries on left leg due to accident; Four lipomas removed from lower back; bunionectomy on left foot in August 2013, states, bowel prolapsed and they put back in place Past Anesthesia/Blood Transfusion Reactions: No Reported Reaction Additional Past Anesthesia/Blood Transfusion Reaction / Comment(s): . Date of Last Stent Placement:: 2011 Past Psychological History: Anxiety, Depression Smoking Status: Current every day smoker Past Alcohol Use History: Occasional Past Drug Use History: None Reported - Past Family History Father Family Medical History: No Reported History Additional Family Medical History / Comment(s): father at age 92 yrs. Mother Family Medical History: COPD Additional Family Medical History / Comment(s): Mother at age 62yrs. General Exam - General Exam Comments Initial Comments: GENERAL: Patient is well-developed and well-nourished. Patient is nontoxic and in no acute distress. HEAD: Atraumatic, normocephalic. EYES: Pupils equal round and reactive to light, extraocular movements intact, sclera anicteric, conjunctiva are normal. Eyelids were unremarkable. ENT: TMs normal, nares patent, oropharynx clear without exudates. Moist mucous membranes. NECK: Normal range of motion, supple without lymphadenopathy or JVD. LUNGS: Unlabored respirations. Breath sounds clear to auscultation bilaterally and equal. No wheezes rales or rhonchi. HEART: Regular rate and rhythm without murmurs, rubs or gallops. ABDOMEN: Soft, nontender, normoactive bowel sounds. No guarding, no rebound. No masses appreciated. : Deferred MUSCULOSKELETAL: Normal extremities with adequate strength and normal range of motion, no pitting or edema. No clubbing or cyanosis. NEUROLOGICAL: Patient is alert and oriented x 3. Motor and sensory are also intact. Cranial nerves II through XII grossly intact. Symmetrical smile. Normal speech, normal gait. PSYCH: Normal mood, normal affect. SKIN: Warm, Dry, normal turgor, no rashes or lesions noted. Limitations: no limitations Course Vital Signs 12/12/19 12/13/19 23:51 01:21 Temperature 98.5 F 98.4 F Pulse Rate 90 79 Respiratory 18 16 Rate Blood Pressure 133/86 141/76 O2 Sat by Pulse 94 L 94 L Oximetry Chest Pain MDM - MDM Patient is 69-year-old female here for chest pain started earlier today. He gets worse with movement. Her vitals are stable. EKG shows no acute process. Chest x-ray is normal. Her workup today is normal, negative troponin. Patient states she feels better and wishes to go home. I do not believe this is ischemic in nature. She is stable for discharge. She'll follow up with her PCP. Return parameters were discussed with the patient she verbalized understanding. Case discussed with Dr. Howard. Disposition Clinical Impression: Atypical chest pain Disposition: HOME SELF-CARE Condition: Stable Instructions (If sedation given, give patient instructions): Chest Pain (ED) Additional Instructions: Please return to the Emergency Department if symptoms worsen or any other concerns. Workup is normal today. Follow-up with PCP. Is patient prescribed a controlled substance at d/c from ED?: No Referrals: Sanya Duff MD [Primary Care Provider] - 1-2 days
== END 2019-12-13 01:39 | disposition home or self-care (01) ==
LOC: EC 23:50
DX: R07.89 Other chest pain (principal); I25.119 Atherosclerotic heart disease of native coronary artery with unspecified angina pectoris; J44.9 Chronic obstructive pulmonary disease, unspecified; K21.9 Gastro-esophageal reflux disease without esophagitis; F41.9 Anxiety disorder, unspecified; F32.9 Major depressive disorder, single episode, unspecified; F17.200 Nicotine dependence, unspecified, uncomplicated; Z79.899 Other long term (current) drug therapy; Z88.0 Allergy status to penicillin; Z88.1 Allergy status to other antibiotic agents; Z88.2 Allergy status to sulfonamides; Z91.018 Allergy to other foods; Z91.048 Other nonmedicinal substance allergy status; Z88.8 Allergy status to other drugs, medicaments and biological substances; Z95.5 Presence of coronary angioplasty implant and graft
CPT/HCPCS: 36415; 71046; 80053; 83735; 84484; 85025; 85610; 85730; 93005; 96360; 99285